=== PATIENT | female | born 1940 | race Caucasian/White ===

== ENCOUNTER 2017-08-08 16:40 | Inpatient (IN) | payer MEDICARE, OTHER ==
[~2017-08-08] VITALS: Ht 157.5 cm; Wt 74.0 kg
[~2017-08-08 16:40] MED LIST: ALENDRONATE SOD70 MG PO; LAMICTAL PO; LAMOTRIGINE200 MG PO; PANTOPRAZOLE SO40 MG PO; POTASSIUM CHLO10 ME1 PO; TRAZODONE HCL50 MG PO; VITAMIN D350000 UNIT PO; Z PHENOBARBITAL; Z TOPAMAX; Z.0.BENTYL10 MG; Z.0.KLOR-CON20 MEQ PO; Z.0.LASIX40 MG; Z.0.VITAMIN B12-FO1 PO; Z.1.NITROFURANTOIN10; [UNRECOGNIZED DRUG - OTHER]
--- OUTSIDE RECORDS SUMMARY | 2017-08-08 16:44 | XMS REPORT ---
Author Author [facility] Address Unknown Phone Unavailable Care Team Providers Care Patient Centered Care Specialist Name Role Phone KIET CA Unavailable Unavailable DAPHNIE SWEET Unavailable Unavailable SERENA BENITES Unavailable Unavailable CONNOR LAWSON Unavailable Unavailable Problems This patient has no known problems. Allergies, Adverse Reactions, Alerts This patient has no known allergies or adverse reactions. Medications This patient has no known medications. Results Test Description Test Time Test Comments Text Results Atomic Results Result Comments MRI BRAIN WO [place] [address] Patient Name: ROCHELLE CALDERA MR #: [id number] : 1940 Age/Sex: 76/F Req #: [id number] Adm Physician: KIET CA MD Ordered by: JESS REDMAN MD Report #: [id number] Location: [facility] Room/Bed: [facility] Procedure: [id number] MRI/MRI BRAIN WO Exam Date: 03/29/17 Exam Time: 1324 REPORT STATUS: Signed EXAMINATION: MRI of the brain without contrast. HISTORY: Confusion, left-sided weakness COMPARISON: Head CT on 03/27/2017 TECHNIQUE: Sagittal T2; axial DWI , T2, FLAIR, T1-IR, T2 gradient echo; coronal FLAIR. IMAGE QUALITY: Adequate. FINDINGS: Parenchyma: 1. Few scattered and mildly confluent periventricular white matter T2 hyperintense and FLAIR hyperintense foci, most likely nonspecific chronic microvascular ischemic changes. 2. Small chronic lacunar infarct in the left striatocapsular region (head of the caudate, putamen and anterior limb of the internal capsule). 3. No mass, hemorrhage, acute or chronic infarcts. Skull: Unremarkable. Vessels: Expected flow voids present in the major arteries and dural sinuses. Extra-axial spaces: No abnormal signal intensity or mass effect. Brain volume: Within normal limits for age. Ventricles: No hydrocephalus or displacement. Foramen magnum: Unremarkable. Sella: Unremarkable. Paranasal / mastoid sinuses: No significant inflammatory disease. IMPRESSION: 1. No acute infarcts. 2. Unchanged small chronic lacunar infarct in the left basal ganglia. 3. Mild chronic microvascular ischemic changes. Signed by: Dr. Loraine Brady M.D. on 03/29/2017 4:02 PM Dictated By: LORAINE BRADY MD 01 Transcribed By: ZAKI on 03/29/171601 COPY TO: JESS REDMAN MD CHEST SINGLE (PORTABLE) [place] [address] Patient Name: ROCHELLE CALDERA MR #: [id number] : 1940 Age/Sex: 76/F Req #: [id number] Adm Physician: Ordered by: SAL HOLDER MD Report #: [id number] Location: ER Room/Bed: Procedure: [id number] DX/CHEST SINGLE (PORTABLE) Exam Date: 03/27/17 Exam Time: 1845 REPORT STATUS: Signed Portable chest x -ray INDICATION: Stroke workup COMPARISON: Chest x-ray 03/04/2017 FINDINGS: Frontal view of the chest obtained at 1829 hours. HEART AND MEDIASTINUM: The heart is top normal in size to mildly enlarged with aortic ectasia LINES: None. LUNGS: Lung volumes are low. There is no evidence of mass or infiltrate. PLEURA: The costophrenic angles are sharp. No pneumothorax. BONES AND SOFT TISSUES: Degenerative changes of the right shoulder are stable. There are no focal osseous lesions. Clips in the right upper quadrant are suggestive of cholecystectomy.. The soft tissues are normal. IMPRESSION: 1. Mild cardiomegaly without vascular congestion. 2. Low lung volumes. No acute pulmonary process. Signed by: Dr. Ezio Bragg MD on 03/27/2017 6:54 PM Dictated By: EZIO BRAGG MD 53 COPY TO: SAL HOLDER MD CT BRAIN WO [place] [address] Patient Name: ROCHELLE CALDERA MR #: [id number] : 1940 Age/Sex: 76/F Req #: [id number] Adm Physician: Ordered by: SAL HOLDER MD Report #: [id number] Location: ER Room/Bed: Procedure: [id number] CT/CT BRAIN WO Exam Date: Exam Time: REPORT STATUS: Signed History:Left facial droop, altered mental status Comparison studies:Head CT on 03/22/2017 Technique: Axial images were obtained from the skull base to the vertex. Coronal and sagittal images reconstructed from the axial data. Intravenous contrast: None Findings: Scalp/skull: No abnormalities. Extra-axial spaces: No masses. No fluid collections. Brain sulci: Mildly prominent. Ventricles: Mild compensatory dilatation. No hydrocephalus. Parenchyma: Sagittal hypodensities in the supratentorial white matter are small vessel ischemic changes. An old lacunar insult involves the head of the caudate and the adjacent putamen. No masses, hemorrhage, acute or chronic cortical vascular insults. Sellar/suprasellar region: No abnormalities. Craniocervical junction: Patent foramen magnum. No Chiari one malformation. Incidental findings: Atherosclerotic calcifications in the carotid siphons and vertebral arteries. Impression: No acute abnormalities. No changes when compared to the head CT on 03/22/2017. Chronic findings: 1. Mild generalized volume loss. 2. Mild supratentorial white matter small vessel ischemic changes. 3. Focal left striatocapsular lacunar insult. Signed by: Dr. Porfirio Jones M.D. on 03/27/2017 6:04 PM Dictated By : PORFIRIO JONES MD, MD 03 Transcribed By: ZAKI on 03/27/171803 COPY TO: SAL HOLDER MD CT ABDOMEN/PELVIS W [place] [address] Patient Name: ROCHELLE CALDERA MR #: [id number] : 1940 Age/Sex: 76/F Req #: [id number] Adm Physician: Ordered by: NABILA ARAMBULA Report #: [id number] Location: ER Room/Bed: Procedure: [id number] CT/CT ABDOMEN/PELVIS W Exam Date: 03/22/17 Exam Time: 1440 REPORT STATUS: Signed EXAM: CT Abdomen and Pelvis WITH contrast INDICATION: COMPARISON: None. TECHNIQUE: Abdomen and pelvis were scanned utilizing a multidetector helical scanner from the lung base to the pubic symphysis after administration of IV contrast. Coronal and sagittal reformations were obtained. Routine protocol was performed. Scan was performed when during portal venous phase. IV CONTRAST: 100 mL of Isovue-370 ORAL CONTRAST: Water COMPLICATIONS: None RADIATION DOSE: Total DLP: 614.84 mGy*cm Estimated effective dose: (DLP x 0.015 x size factor) mSv CTDIvol has been reviewed. It is below the limits set by the Radiation Protocol Committee (RPC). FINDINGS: LINES and TUBES: None. LOWER THORAX: Subsegmental atelectasis. HEPATOBILIARY: Few calcified granulomas. No focal hepatic lesions. No biliary ductal dilation. GALLBLADDER: Surgically absent. SPLEEN: Splenomegaly, measuring 13 cm. PANCREAS: No focal masses or ductal dilatation. ADRENALS: No adrenal nodules KIDNEYS/URETERS: Kidneys enhance symmetrically. No hydronephrosis. No cystic or solid mass lesions. No stones. GI TRACT: Postsurgical changes of right hemicolectomy. The right abdomen anastomosis is intact. No evidence of bowel obstruction. There is pyloric/proximal first portion of duodenum wall thickening (series 2, image 25). PELVIC ORGANS/BLADDER: Hysterectomy. Bladder is unremarkable. 2.5 cm right ovarian cyst. There is also a 1.7 cm left ovarian cyst. LYMPH NODES: No lymphadenopathy. VESSELS: Unremarkable. PERITONEUM / RETROPERITONEUM: No free air or fluid. BONES: Left hip arthroplasty. SOFT TISSUES: Anterior abdominal surgical scar and skin carlitos. IMPRESSION: 1. Postsurgical changes of right hemicolectomy. 2. Pyloric/proximal first portion of duodenal wall thickening. Intramural hematoma cannot be excluded in the setting of trauma. Signed by: Dr. Omer Olivas MD on 03/22/2017 3: 26 PM Dictated By: OMER OLIVAS MD 1526 Transcribed By: ZAKI on 03/22/17 1526 COPY TO: NABILA ARAMBULA CT CERVICAL SPINE [place] [address] Patient Name: ROCHELLE CALDERA MR #: [id number] : 1940 Age/Sex: 76/F Req #: [id number] [facility] Physician: Ordered by: NABILA ARAMBULA Report #: [id number] Location: ER Room/Bed: Procedure: [id number] CT/CT CERVICAL SPINE WO Exam Date: 03/22/17 Exam Time: 1315 REPORT STATUS: Signed History: Fall hit the head, pain Comparison studies:None Technique: Axial images were obtained from the brain and cervical spine. Coronal and sagittal images reconstructed from the axial data. Intravenous contrast: None Findings: Head CT: Scalp/skull: Small left frontal scalp hematoma. No fractures, blastic or lytic lesions. Brain sulci: Appropriate for age. Ventricles: Normal in size and configuration. No hydrocephalus. Extra-axial spaces: No masses. No fluid collections. Parenchyma: Small periventricular and deep white matter hypodensities, nonspecific. Chronic left thalamocapsular lacunar infarct No masses, hemorrhage, acute or chronic cortical vascular insults. Sellar/suprasellar region: No abnormalities. Craniocervical junction: Patent foramen magnum. No Chiari one malformation. Cervical spine CT: Fractures: None. Soft tissues: No gross abnormalities. Atlantoaxial articulation: No acute abnormality. Mild changes. Alignment: Normal lordosis. No scoliosis. Cervicomedullary junction : No abnormalities. Patent foramen magnum. Vertebrae: No infection or neoplasm. Degenerative changes: Facet hypertrophy at the upper and mid cervical spine with grossly patent canal and foramina. Fused C2-3 left facet joint. Incidental findings: None. Impression: Head CT: 1. No acute intracranial abnormality. 2. Mild chronic microvascular ischemic changes of the white matter. Remote lacunar infarct in the left striatocapsular region. Cervical spine CT: 1. No acute abnormalities. Degenerative changes as described above. 2. Cannot exclude ligament, spinal cord and or vascular abnormalities on the basis of this examination. Signed by: DR Tiot Rucker M.D. on 03/22/2017 2:02 PM Dictated By : TITO ZEPEDA MD 01 COPY TO: NABILA ARAMBULA CT BRAIN WO [place] [address] Patient Name: ROCHELLE CALDERA MR #: [id number] : 1940 Age/Sex: 76/F Req #: [id number] Adm Physician: Ordered by: NABILA ARAMBULA Report #: [id number] Location: ER Room/Bed: Procedure: [id number] CT/CT BRAIN WO Exam Date: 03/22/17 Exam Time: 1315 REPORT STATUS: Signed History: Fall hit the head, pain Comparison studies:None Technique: Axial images were obtained from the brain and cervical spine. Coronal and sagittal images reconstructed from the axial data. Intravenous contrast: None Findings: Head CT: Scalp /skull: Small left frontal scalp hematoma. No fractures, blastic or lytic lesions. Brain sulci: Appropriate for age. Ventricles: Normal in size and configuration. No hydrocephalus. Extra-axial spaces: No masses. No fluid collections. Parenchyma: Small periventricular and deep white matter hypodensities, nonspecific. Chronic left thalamocapsular lacunar infarct No masses, hemorrhage, acute or chronic cortical vascular insults. Sellar/suprasellar region: No abnormalities. Craniocervical junction: Patent foramen magnum. No Chiari one malformation. Cervical spine CT : Fractures: None. Soft tissues: No gross abnormalities. Atlantoaxial articulation: No acute abnormality. Mild changes. Alignment: Normal lordosis. No scoliosis. Cervicomedullary junction: No abnormalities. Patent foramen magnum. Vertebrae: No infection or neoplasm. Degenerative changes: Facet hypertrophy at the upper and mid cervical spine with grossly patent canal and foramina. Fused C2-3 left facet joint. Incidental findings: None. Impression: Head CT: 1. No acute intracranial abnormality. 2. Mild chronic microvascular ischemic changes of the white matter. Remote lacunar infarct in the left striatocapsular region. Cervical spine CT: 1. No acute abnormalities. Degenerative changes as described above. 2. Cannot exclude ligament, spinal cord and or vascular abnormalities on the basis of this examination. Signed by: DR Tito Rucker M.D. on 03/22/2017 2:02 PM Dictated By: TITO ZEPEDA MD 01 Transcribed By: ZAKI on 03/22/171401 COPY TO: NABILA ARAMBULA CHEST 2 VIEWS [place] [address] Patient Name: ROCHELLE CALEDRA MR #: [id number] : 1940 Age/Sex: 76/F Req #: [id number] [facility] Physician: Ordered by: SERENA BENITES MD Report #: [id number] Location: OR Room/Bed: Procedure: [id number] DX/CHEST 2 VIEWS Exam Date: 03/04/17 Exam Time: 1445 REPORT STATUS: Signed PROCEDURE: X-RAY CHEST, TWO VIEWS COMPARISON: None. INDICATIONS: PREOPERATIVE CHEST XRAY FOR COLON SURGERY FINDINGS: LUNGS: No consolidations or edema. Limited evaluation of the apical region due to overlying chin. PLEURA: No effusions or pneumothorax. HEART T MEDIASTINUM: The heart is within normal size- limits. BONES T SOFT TISSUES: No acute findings. Degenerative changes of the right shoulder. CONCLUSION: No acute thoracic abnormality. Reggie Grimes D.O. Dictated by: Reggie Grimes D.O. on 03/04/2017 at 15:45 Electronically approved by: Reggie Grimes D.O. on 03/04/2017 at 15:45 Dictated By: REGGIE GRIMES DO 44 Transcribed By: RAFAEL on 03/04/171544 COPY TO: SERENA BENITES MD UPPER GI W/AIR CONTR [place] [address] Patient Name: ROCHELLE CALDERA MR #: [id number] : 1940 Age/Sex: 76/F Req #: [id number] Adm Physician: Ordered by: CONNOR LAWSON MD Report #: [id number] Location: OR Room/Bed: Procedure: [id number] DX/UPPER GI W/AIR CONTR Exam Date: 02/05/17 Exam Time: 1300 REPORT STATUS: Signed PROCEDURE: X-RAY UPPER GI SERIES WITH AIR CONTRAST TECHNIQUE: Multiple fluoroscopic spot images were acquired of the esophagus, stomach, and proximal duodenum after the administration of thin barium. The examination was limited due to the inability of the patient to stand and limited mobility. COMPARISON: None. INDICATIONS: Pyloric mass. FINDINGS: ESOPHAGUS: Motility: Within normal limits. Mucosa: Unremarkable. Distensibility : Normal. GASTROESOPHAGEAL JUNCTION: Small hiatal hernia. GASTROESOPHAGEAL REFLUX: Reflux to the level of the cervical esophagus. STOMACH: Normally distensible and demonstrates normal contours and mucosal pattern. DUODENUM: Bulb and sweep are normal. Duodenal-jejunal junction is in the normal expected position. IMPRESSION: 1. No acute radiographic abnormality. 2. Gastroesophageal reflux to the cervical esophagus. Small hiatal hernia. Dictated by: Mirna Sanchez M.D. on 02/05/2017 at 14:29 Electronically approved by: Mirna Sanchez M.D. on 02/05/2017 at 14:29 Dictated By: MIRNA SANCHEZ MD 142 Transcribed By: RAFAEL on 02/05/171428 COPY TO: CONNOR LAWSON MD
[2017-08-08] MEDS ORDERED: SODIUM CHLORIDE 0.9% 1000ML 1,000 ML IV STA (16:48)
[2017-08-08 17:24] LABS: BASOPHILS % 0.3 % (0.0-1.0); LYMPHOCYTES % 28.9 % (18.0-39.1); MEAN CORPUSCULAR HEMOGLOBIN 19.4 pg (28-32); MEAN CORPUSCULAR HGB CONC 27.3 g/dL (31-35); MEAN CORPUSCULAR VOLUME 71.2 fL (81-99); MONOCYTES # (AUTO) 1.1 (0.2-0.8); MONOCYTES % 33.3 % (4.4-11.3); NEUTROPHILS # (AUTO) 1.3 (2.1-6.9); NEUTROPHILS % 37.2 % (38.7-80.0); PLATELET COUNT 154 x10e3/uL (140-360); RED BLOOD COUNT 2.88 x10e6/uL (3.6-5.1); RED CELL DISTRIBUTION WIDTH 18.8 % (11.7-14.4)
[2017-08-08 17:28] LABS: HEMATOCRIT 20.5 % (34.2-44.1); HEMOGLOBIN 5.6 g/dL (12.0-16.0)
[2017-08-08 17:36] LABS: INR 1.18; PARTIAL THROMBOPLASTIN TIME 22.4 seconds (23.8-35.5); PROTHROMBIN TIME 14.1 seconds (11.9-14.5)
[2017-08-08] MEDS ORDERED: ACETAMINOPHEN 325 MG TAB PO STA (17:39)
[2017-08-08] MEDS ORDERED: FAMOTIDINE 20 MG/2 ML VIAL IV ONE ×2 (17:45→21:15)
[2017-08-08] MEDS ORDERED: SODIUM CHLORIDE 0.9% 250ML 250 ML IV ONE (17:45)
[2017-08-08] MEDS ORDERED: FUROSEMIDE INJ 10 MG/ML 2 ML VIAL IV PRN (17:45)
[2017-08-08 17:46] LABS: ALANINE AMINOTRANSFERASE 7 IU/L (0-55); ALBUMIN 3.8 g/dL (3.5-5.0); ALBUMIN/GLOBULIN RATIO 1.1 (0.8-2.0); ALKALINE PHOSPHATASE 68 IU/L (40-150); BLOOD UREA NITROGEN 21 mg/dL (7-26); BUN/CREATININE RATIO 29 (6-25); CALCIUM 9.7 mg/dL (8.4-10.2); CARBON DIOXIDE 24 mmol/L (22-29); CHLORIDE 107 mmol/L (98-107); CREATINE KINASE 27 IU/L (29-168); CREATININE, SERUM 0.72 mg/dL (0.57-1.11); EST GLOMERULAR FILTRATION RATE > 60 ML/MIN (60-); GLUCOSE 111 mg/dL (74-118); LIPASE 76 U/L (8-78); SODIUM 140 mmol/L (136-145)
--- NOTE | 2017-08-08 18:21 | Diagnostic Imaging Report ---
PROCEDURE: CHEST SINGLE (PORTABLE) COMPARISON: Chest x-ray 03/27/17. INDICATIONS: ANEMIA/WEAKNESS FINDINGS: LUNGS: Clear. Pulmonary interstitium and pulmonary vasculature are normal. PLEURA: No effusions or pneumothorax. HEART \T\ MEDIASTINUM: Abnormal in size. BONES \T\ SOFT TISSUES: Moderate degenerative changes of the right shoulder are stable. No focal osseous lesions. Soft tissues are unremarkable. CONCLUSION: No acute cardiopulmonary process. Other findings as described above. Dictated by: Omar Horton M.D. on 08/08/2017 at 18:22 Electronically approved by: Omar Horton M.D. on 08/08/2017 at 18:22
[2017-08-08 19:30] VITALS: BP 132/58
[2017-08-08 20:00] VITALS: BP 132/58
[2017-08-08] MEDS ORDERED: SODIUM CHLORIDE 0.9% 250ML 250 ML ONE (21:03)
[2017-08-08] MEDS ORDERED: ACETAMINOPHEN 325 MG TAB PO ONE (21:15)
[2017-08-08] MEDS: SODIUM CHLORIDE 0.9% 1000ML 1,000 ML IV SCH (21:45)
[2017-08-09] VITALS: BP 130/60
[2017-08-09] MEDS ORDERED: TRAZODONE HCL 50 MG TAB PO PRN
[2017-08-09 03:02] LABS: CREATINE KINASE 25 IU/L (29-168)
[2017-08-09 04:00] VITALS: BP 146/66
[2017-08-09] MEDS: SODIUM CHLORIDE 0.9% 1000ML 1,000 ML IV SCH ×2 (05:15→11:48)
[2017-08-09 07:43] LABS: ALANINE AMINOTRANSFERASE 7 IU/L (0-55); ALBUMIN 3.6 g/dL (3.5-5.0); ALBUMIN/GLOBULIN RATIO 1.3 (0.8-2.0); ALKALINE PHOSPHATASE 61 IU/L (40-150); ANION GAP 10.9 mmol/L (8-16); BLOOD UREA NITROGEN 19 mg/dL (7-26); BUN/CREATININE RATIO 26 (6-25); CALCIUM 9.2 mg/dL (8.4-10.2); CARBON DIOXIDE 27 mmol/L (22-29); CHLORIDE 104 mmol/L (98-107); CREATININE, SERUM 0.74 mg/dL (0.57-1.11); EST GLOMERULAR FILTRATION RATE > 60 ML/MIN (60-); GLUCOSE 90 mg/dL (74-118); POTASSIUM 3.9 mmol/L (3.5-5.1); SODIUM 138 mmol/L (136-145)
[2017-08-09 07:46] LABS: CREATINE KINASE 28 IU/L (29-168)
[2017-08-09 08:03] VITALS: BP 137/61
[2017-08-09 08:10] LABS: BASOPHILS % 0.2 % (0.0-1.0); HEMATOCRIT 24.6 % (34.2-44.1); HEMOGLOBIN 7.4 g/dL (12.0-16.0); LYMPHOCYTES # (AUTO) 1.1 (1.0-3.2); LYMPHOCYTES % 24.9 % (18.0-39.1); MEAN CORPUSCULAR HGB CONC 30.1 g/dL (31-35); MONOCYTES % 46.7 % (4.4-11.3); NEUTROPHILS # (AUTO) 1.2 (2.1-6.9); NEUTROPHILS % 27.7 % (38.7-80.0); PLATELET COUNT 117 x10e3/uL (140-360); RED BLOOD COUNT 3.37 x10e6/uL (3.6-5.1); RED CELL DISTRIBUTION WIDTH 19.1 % (11.7-14.4)
[2017-08-09] MEDS: PANTOPRAZOLE SOD 40 MG TABEC PO SCH (08:45)
[2017-08-09] MEDS: POTASSIUM CHLORIDE 10 MEQ TABCR PO SCH (08:45)
[2017-08-09] MEDS: LAMOTRIGINE 100 MG TAB PO SCH ×2 (08:45→16:26)
[2017-08-09] MEDS ORDERED: ERGOCALCIFEROL 50,000 UNIT CAP PO SCH (09:00)
[2017-08-09] MEDS ORDERED: SODIUM CHLORIDE 0.9% 250ML 250 ML ONE (09:06)
[2017-08-09 09:28] LABS: FERRITIN 18.03 ng/mL (4.63-204.00)
[2017-08-09] MEDS: ACETAMINOPHEN 325 MG TAB PO PRN (09:30)
[2017-08-09 10:33] LABS: ANISOCYTOSIS MODERATE; LYMPHOCYTES % (MANUAL) 27 % (19-48); MONOCYTES % (MANUAL) 44 % (3.4-9.0); NEUTROPHILS % (MANUAL) 29 % (40-74)
[2017-08-09 10:34] LABS: HYPOCHROMASIA MODERATE; PLATELET ESTIMATE SLIGHTLY DECREASED; PLATELET MORPHOLOGY COMMENT FEW GIANT; RBC MORPHOLOGY COMMENT NORMAL
[2017-08-09 12:00] VITALS: BP 124/59
[2017-08-09 14:42] LABS: HEMATOCRIT 26.7 % (34.2-44.1); HEMOGLOBIN 8.5 g/dL (12.0-16.0)
[2017-08-09 16:00] VITALS: BP 141/81
[2017-08-09 16:31] LABS: ALBUMIN 3.5 g/dL (3.5-5.0); BILIRUBIN,DIRECT 0.7 mg/dL (0.0-0.5)
--- NOTE | 2017-08-09 17:01 | Consultation ---
DATE OF CONSULTATION: GASTROENTEROLOGY CONSULTATION HISTORY OF PRESENT ILLNESS: Ms. Beal is a 77-year-old lady. I have known her when she presented initially to my office with nausea and vomiting. On her evaluation she had upper endoscopy in January, showed large polypoid lesion in the pylorus almost obstructing the pyloric channel. On her colon evaluation she was found to have a mass over 5 cm located in the ascending colon in addition to another polyp in the descending colon which was removed by hot biopsy. Patient was referred to Dr. Mayank Kimball, by whom she underwent a partial gastrectomy and partial right hemicolectomy. 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 The lesion of her stomach was found to be benign. She was referred to an oncologist, Dr. Lai, who has been following her. Over the past 3 months they noticed that her hemoglobin and hematocrit kept on decreasing, and yesterday she was admitted to the hospital with a hemoglobin of 5 and hematocrit of 20 and I was asked to see her. Talking to the patient, she denied any nausea and vomiting, any heartburn, acid reflux, any abdominal pain. She denied any trouble with her bowel, denied any black-colored stool or blood in the stool. She has received 3 units of blood transfusion since she was admitted yesterday through the emergency room. REVIEW OF SYSTEMS: Unremarkable except for feeling weak and tired and loss of energy and some shortness of breath. CURRENT MEDICATION IN THE HOSPITAL: She is taking Tylenol, Lamictal, Drisdol, potassium, Protonix, trazodone. ALLERGIES: SHE IS ALLERGIC TO SULFA AND MORPHINE. PAST MEDICAL HISTORY: Epilepsy. PAST SURGICAL HISTORY: Hysterectomy, cholecystectomy, left hip replacement, a tumor removed from the left breast. FAMILY HISTORY: Noncontributory. SOCIALLY: She is a . She as 2 children. She does not drink and she does not smoke. PHYSICAL EXAMINATION: GENERAL: She is awake, alert, oriented, hemodynamically stable. NECK: Supple. LUNGS: Clear. HEART: Regular-regular, occasional irregular beat. ABDOMEN: Obese, soft, nontender. No acute signs. CENTRAL NERVOUS SYSTEM: Motor function grossly intact. EXTREMITIES: No edema. LAB TESTS: Hemoglobin after 3 blood units transfusion 8.5 and hematocrit 26.7. PT/PTT normal. Calcium normal. Platelet 117. Basic metabolite normal. Liver function, AST, ALT and alk phos are normal, total bilirubin mildly elevated at 3.5. Her folate is 14, B12 normal, iron saturation 89%, ferritin is 18. IMPRESSION: Severe anemia, most likely iron deficient. Patient was started on iron supplement as an outpatient, and I will explain the elevation of her iron saturation. The cause of her anemia, the iron deficiency, probably related to her partial gastrectomy as no obvious cause of any GI bleed at this point. PLAN: Will continue the conservative care of the patient. No need for endoscopy as no active bleeding seen. Will keep her on the Protonix, will keep her on the iron supplement, and will follow accordingly. As far as the bilirubin of 3.5, this could be the bit of elevation due to possibly hemolysis though her MCV is low, which speaks against hemolysis. I will go ahead and order a fractionated bilirubin direct and indirect. Job#: [id number] EV
[2017-08-09 20:00] VITALS: BP 122/57
[2017-08-09] MEDS: BALSAM PERU/CASTOR OIL 60 GM OINT...G. TP SCH (21:00)
[2017-08-10] VITALS: BP 137/79
[2017-08-10 04:00] VITALS: BP 152/69
[2017-08-10 08:17] VITALS: BP 140/63
[2017-08-10 09:24] LABS: BASOPHILS % 0.2 % (0.0-1.0); HEMATOCRIT 27.7 % (34.2-44.1); HEMOGLOBIN 8.4 g/dL (12.0-16.0); LYMPHOCYTES % 22.2 % (18.0-39.1); MEAN CORPUSCULAR HEMOGLOBIN 22.5 pg (28-32); MEAN CORPUSCULAR HGB CONC 30.3 g/dL (31-35); MEAN CORPUSCULAR VOLUME 74.3 fL (81-99); MONOCYTES # (AUTO) 2.1 (0.2-0.8); MONOCYTES % 47.6 % (4.4-11.3); NEUTROPHILS # (AUTO) 1.3 (2.1-6.9); NEUTROPHILS % 29.6 % (38.7-80.0); PLATELET COUNT 113 x10e3/uL (140-360); RED BLOOD COUNT 3.73 x10e6/uL (3.6-5.1); RED CELL DISTRIBUTION WIDTH 19.4 % (11.7-14.4)
[2017-08-10] MEDS: POTASSIUM CHLORIDE 10 MEQ TABCR PO SCH (09:28)
[2017-08-10] MEDS: PANTOPRAZOLE SOD 40 MG TABEC PO SCH (09:28)
[2017-08-10] MEDS: BALSAM PERU/CASTOR OIL 60 GM OINT...G. TP SCH ×2 (09:28→20:51)
[2017-08-10] MEDS: LAMOTRIGINE 100 MG TAB PO SCH ×2 (09:28→15:26)
[2017-08-10 09:40] LABS: ANION GAP 12.3 mmol/L (8-16); BLOOD UREA NITROGEN 18 mg/dL (7-26); BUN/CREATININE RATIO 25 (6-25); CALCIUM 8.7 mg/dL (8.4-10.2); CARBON DIOXIDE 25 mmol/L (22-29); CHLORIDE 103 mmol/L (98-107); CREATININE, SERUM 0.73 mg/dL (0.57-1.11); EST GLOMERULAR FILTRATION RATE > 60 ML/MIN (60-); GLUCOSE 132 mg/dL (74-118); MAGNESIUM 1.7 MG/DL (1.3-2.1); POTASSIUM 3.3 mmol/L (3.5-5.1); SODIUM 137 mmol/L (136-145)
[2017-08-10] MEDS ORDERED: POTASSIUM CHLORIDE 10 MEQ TABCR PO ONE (10:30)
[2017-08-10 10:37] LABS: LYMPHOCYTES % (MANUAL) 25 % (19-48); MONOCYTES % (MANUAL) 38 % (3.4-9.0); NEUTROPHILS % (MANUAL) 35 % (40-74)
[2017-08-10 10:38] LABS: PLATELET ESTIMATE SLIGHTLY DECREASED; PLATELET MORPHOLOGY COMMENT NORMAL; RBC MORPHOLOGY COMMENT NORMAL
--- NOTE | 2017-08-10 10:46 | Progress Note ---
DATE: August 10, 2017 The patient is seen and examined today. The patient appeared comfortable. No worsening. Clinically, he is doing better. No chest pain, headache, or dizziness. PHYSICAL EXAMINATION: GENERAL: Alert, awake, communicative. HEENT: Normocephalic, atraumatic. Sclerae pale. Conjunctivae clear. Neck: Supple. Chest: Clear to auscultation. Cardiovascular: Regular rate and rhythm. Extremities: No edema. LABS AND IMAGING: Reviewed. ASSESSMENT AND PLAN: 1. Patient with history of medical condition. I will be following for anemia. So far, the anemia workup is consistent with iron deficiency anemia. The patient had transfusion and currently hemoglobin is stable. Will monitor hemoglobin closely. 2. Colon cancer. CA level is requested. The patient will need PET CT as an outpatient. Further recommendations and treatment as per clinical staging. 3. Will continue to monitor. Will follow. Job#: [id number]
--- NOTE | 2017-08-10 11:11 | Consultation ---
DATE OF CONSULTATION: August 09, 2017 REASON FOR CONSULTATION: Anemia, history of colon cancer. HISTORY OF PRESENT ILLNESS: She is a very pleasant, 77-year-old female with a past medical history including CVA, colon cancer, cervical strain, history of epilepsy, currently in the hospital with worsening symptomatic anemia. She was initially seen in clinic for further management of colon cancer. She was recently diagnosed with colon cancer in ascending colon. She had right hemicolectomy recently. She feels fatigued, tired and lethargic. She had CBC which showed hemoglobin 5. She was referred to the emergency room for further management. She received 2 units of packed red blood cells transfusion. Clinical condition has improved. PAST MEDICAL HISTORY: Includes head trauma, UTI, CVA, anemia, colon cancer. FAMILY HISTORY: Positive for lung cancer, abdominal syndrome, coronary artery disease. ALLERGIES: SULFA, MORPHINE. MEDICATIONS: List reviewed. REVIEW OF SYSTEMS: A 12-point review of systems per the HPI. SOCIAL HISTORY: No smoking, alcohol or drugs. PHYSICAL EXAMINATION GENERAL: Alert, awake, medicated. HEENT: Normocephalic and atraumatic. Sclerae pink and conjunctivae clear. NECK: Supple. CARDIOVASCULAR: Regular rate and rhythm. EXTREMITIES: No clubbing, cyanosis or edema. JAI ALAI PLAYER: Grossly intact. LABS AND IMAGING: Reviewed. ASSESSMENT AND PLAN: 1. The patient with history of multiple medical conditions, recently diagnosed with colon cancer, status post right hemicolectomy. No restaging workup done. Recommendation to follow up as an outpatient for further management. 2. Anemia. So far, anemia workup is pending. She received 2 units of packed red blood cells and recommend to give 1 more packed red blood cells. Will follow hemoglobin closely. 3. Will continue remaining care. Will follow the patient. Job#: [id number]
[2017-08-10] MEDS: IRON SUCROSE 100 MG in SODIUM CHLORIDE 0.9% 100 ML 100 ML IV SCH (11:29)
[2017-08-10 12:08] VITALS: BP 138/62
--- NOTE | 2017-08-10 14:59 | Progress Note ---
DATE: GASTROENTEROLOGY PROGRESS NOTE SUBJECTIVE: Ms. Beal is doing better today. She is awake, alert, oriented. She was on a wheelchair outside her room. OBJECTIVE: Her blood count has continued to improve and is steady. Her hemoglobin today is 8.4, hematocrit 28, platelets 113. Hemodynamically she is stable, afebrile 98, pulse 75, blood pressure 138/62. She is on cardiac diet, tolerating it fine. Her electrolytes: BUN and creatinine normal, sodium and potassium 137 and 3.3, and the potassium was replaced. Her repeat bilirubin is 2.2 with the indirect 1.5. Normal enzymes and normal alk phos. She had CT of the liver with contrast in March 2017, which was normal. ASSESSMENT AND PLAN: Most likely again the recent episode of anemia because of the malabsorption post gastrectomy. She had no signs of active GI bleed, no melena, no hematemesis, no hematochezia, and actually her BUN is within normal, 28. She is receiving iron. Will continue to monitor. Job#: [id number] MARCELLO
[2017-08-10 16:05] VITALS: BP 139/63
[2017-08-10 20:00] VITALS: BP 140/66
[2017-08-11] VITALS: BP 154/65
[2017-08-11 04:00] VITALS: BP 163/69
[2017-08-11 07:47] LABS: BASOPHILS % 0.6 % (0.0-1.0); HEMATOCRIT 31.1 % (34.2-44.1); HEMOGLOBIN 9.2 g/dL (12.0-16.0); LYMPHOCYTES # (AUTO) 1.1 (1.0-3.2); LYMPHOCYTES % 30.4 % (18.0-39.1); MEAN CORPUSCULAR HEMOGLOBIN 22.6 pg (28-32); MEAN CORPUSCULAR HGB CONC 29.6 g/dL (31-35); MEAN CORPUSCULAR VOLUME 76.4 fL (81-99); MONOCYTES # (AUTO) 1.2 (0.2-0.8); MONOCYTES % 33.9 % (4.4-11.3); NEUTROPHILS # (AUTO) 1.2 (2.1-6.9); NEUTROPHILS % 33.9 % (38.7-80.0); PLATELET COUNT 142 x10e3/uL (140-360); RED BLOOD COUNT 4.07 x10e6/uL (3.6-5.1); RED CELL DISTRIBUTION WIDTH 20.5 % (11.7-14.4)
[2017-08-11 08:00] VITALS: BP 148/67
[2017-08-11 08:30] LABS: ANION GAP 11.9 mmol/L (8-16); BLOOD UREA NITROGEN 13 mg/dL (7-26); BUN/CREATININE RATIO 17 (6-25); CALCIUM 9.8 mg/dL (8.4-10.2); CARBON DIOXIDE 26 mmol/L (22-29); CHLORIDE 107 mmol/L (98-107); CREATININE, SERUM 0.75 mg/dL (0.57-1.11); EST GLOMERULAR FILTRATION RATE > 60 ML/MIN (60-); GLUCOSE 98 mg/dL (74-118); MAGNESIUM 2.1 MG/DL (1.3-2.1); POTASSIUM 3.9 mmol/L (3.5-5.1); SODIUM 141 mmol/L (136-145)
[2017-08-11] MEDS: POTASSIUM CHLORIDE 10 MEQ TABCR PO SCH (08:40)
[2017-08-11] MEDS: PANTOPRAZOLE SOD 40 MG TABEC PO SCH (08:40)
[2017-08-11] MEDS: BALSAM PERU/CASTOR OIL 60 GM OINT...G. TP SCH ×2 (08:40→20:23)
[2017-08-11] MEDS: LAMOTRIGINE 100 MG TAB PO SCH ×2 (08:40→16:19)
[2017-08-11] MEDS: IRON SUCROSE 100 MG in SODIUM CHLORIDE 0.9% 100 ML 100 ML IV SCH (10:17)
[2017-08-11 12:00] VITALS: BP 142/63
[2017-08-11 13:32] LABS: CLARITY,URINE SL CLOUDY (CLEAR); COLOR,URINE YELLOW (YELLOW)
[2017-08-11 13:33] LABS: LEUKOCYTE ESTERASE ,URINE TRACE (NEGATIVE); NITRITE,URINE POSITIVE (NEGATIVE); PROTEIN,URINE DIPSTICK NEGATIVE (NEGATIVE)
[2017-08-11 13:34] LABS: BILIRUBIN,URINE NEGATIVE (NEGATIVE); KETONES,URINE NEGATIVE (NEGATIVE); URINE UROBILINOGEN 1 mg/dL (0.2 - 1)
[2017-08-11 13:43] LABS: BACTERIA,URINE MANY /HPF; EPITHELIAL CELLS,URINE MANY /LPF; RBC,URINE 0-5 /HPF (0-5); WBC,URINE (MAN) 0-5 /HPF (0-5)
[2017-08-11 16:00] VITALS: BP 153/62
[2017-08-11] MEDS: ACETAMINOPHEN 325 MG TAB PO PRN (16:37)
[2017-08-11 20:31] VITALS: BP 134/63
[2017-08-12 00:34] VITALS: BP 150/67
[2017-08-12 05:43] VITALS: BP 137/62
[2017-08-12 07:28] VITALS: BP 153/68
[2017-08-12 07:30] VITALS: BP 153/68
[2017-08-12] MEDS: POTASSIUM CHLORIDE 10 MEQ TABCR PO SCH (09:25)
[2017-08-12] MEDS: PANTOPRAZOLE SOD 40 MG TABEC PO SCH (09:25)
[2017-08-12] MEDS: LAMOTRIGINE 100 MG TAB PO SCH (09:25)
[2017-08-12] MEDS: BALSAM PERU/CASTOR OIL 60 GM OINT...G. TP SCH (09:25)
[2017-08-12 09:40] LABS: BASOPHILS % 0.2 % (0.0-1.0); LYMPHOCYTES # (AUTO) 1.3 (1.0-3.2); LYMPHOCYTES % 30.8 % (18.0-39.1); MEAN CORPUSCULAR HEMOGLOBIN 22.8 pg (28-32); MEAN CORPUSCULAR VOLUME 78.7 fL (81-99); MONOCYTES # (AUTO) 1.5 (0.2-0.8); MONOCYTES % 35.1 % (4.4-11.3); NEUTROPHILS # (AUTO) 1.4 (2.1-6.9); NEUTROPHILS % 32.5 % (38.7-80.0); PLATELET COUNT 122 x10e3/uL (140-360); RED BLOOD COUNT 3.94 x10e6/uL (3.6-5.1); RED CELL DISTRIBUTION WIDTH 21.6 % (11.7-14.4)
--- NOTE | 2017-08-12 09:40 | Progress Note ---
DATE: August 12, 2017 The patient was seen and examined today. The patient appeared comfortable. Clinical condition is stable. No worsening events noted. No chest pain, headache or dizziness. Current hemoglobin is improving. PHYSICAL EXAMINATION GENERAL: Alert, awake and communicative. HEENT: Normocephalic and atraumatic. Sclerae pink. Conjunctivae clear. NECK: Supple. CHEST: Clear to auscultation. CARDIOVASCULAR: Regular rate and rhythm. EXTREMITIES: No clubbing, cyanosis or edema. MECHANICAL METER TESTER: Grossly intact. LABS AND IMAGING: Reviewed. ASSESSMENT AND PLAN: The patient with history of multiple medical conditions, including recently diagnosed adenocarcinoma of colon, history of status post hemicolectomy. She also has iron deficiency anemia and currently on iron infusion. Hemoglobin 9.2 yesterday morning. CBC is pending. Will check CBC today. Clinical condition has improved. At this point, will continue iron treatment. Can be done as an outpatient. Restaging for colon cancer will be as an outpatient. Will follow the patient closely. Job#: [id number] DAVID
[2017-08-12 11:20] VITALS: BP 150/66
[2017-08-12 11:24] LABS: HEMATOCRIT 28.8 % (34.2-44.1); HEMOGLOBIN 8.4 g/dL (12.0-16.0)
[2017-08-12] MEDS: IRON SUCROSE 100 MG in SODIUM CHLORIDE 0.9% 100 ML 100 ML IV SCH (11:45)
== END 2017-08-12 15:50 | disposition home or self-care (01) | DRG 812 ==
LOC: ER 16:40 → ERHOLD 18:20 → MED/SURG3 18:27
PROC: 30233N1 Transfusion of Nonautologous Red Blood Cells into Peripheral Vein, Percutaneous Approach (ICD-10-PCS; principal; 2017-08-08)
DX: D50.8 Other iron deficiency anemias (principal); C18.9 Malignant neoplasm of colon, unspecified; E44.1 Mild protein-calorie malnutrition; Z85.038 Personal history of other malignant neoplasm of large intestine; R55 Syncope and collapse; D63.0 Anemia in neoplastic disease; K21.9 Gastro-esophageal reflux disease without esophagitis; F32.9 Major depressive disorder, single episode, unspecified; L89.152 Pressure ulcer of sacral region, stage 2; Z88.5 Allergy status to narcotic agent; Z88.2 Allergy status to sulfonamides; Z68.29 Body mass index [BMI] 29.0-29.9, adult; D62 Acute posthemorrhagic anemia
CPT/HCPCS: 36415; 71045; 80048; 80053; 80076; 81001; 82248; 82550; 82553; 82607; 82728; 82746; 83540; 83690; 83735; 84155; 84466; 84484; 85014; 85018; 85025; 85610; 85730; 86850; 86900; 86920; 87086; 87186; 93005; 96361; 97139; J1756; J1940; J7030; J7050; P9016

== ENCOUNTER 2018-05-14 16:53 | Emergency (ER) | payer MEDICARE, OTHER ==
[~2018-05-14] VITALS: Ht 157.5 cm; Wt 73.9 kg
--- OUTSIDE RECORDS SUMMARY | 2018-05-14 16:58 | XMS REPORT | Continuity of Care Document ---
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 [facility] [place] Anxiety disorder<sup>1</sup> Active 10/02/2013 Problem 05/08/2018 Data migrated from [employer] [facility] on 09/14/14. [facility] [place] Cobalamin deficiency<sup>2</sup> Active 10/02/2013 Problem 05/08/2018 Data migrated from [employer] on 09/14/14. [facility] [place] Depressive disorder<sup>4</sup> Active 10/02/2013 Problem 05/08/2018 Data migrated from [employer] on 09/14/14. [facility] [place] Mixed incontinence<sup>7</sup> Active 10/02/2013 Problem 05/08/2018 Data migrated from [employer] [facility] on 09/14/14. [facility] [place] Walking disability<sup>10</sup> Active 10/02/2013 Problem 05/08/2018 Data migrated from [employer] [facility] on 09/14/14. [facility] [place] Epilepsy<sup>5</sup> Active 08/17/2013 Problem 05/08/2018 Data migrated from [employer] [facility] on 09/14/14. [facility] [place] Recurrent urinary tract infection<sup>8</sup> Active 05/19/2013 Problem 05/08/2018 Data migrated from [employer] on 09/14/14. [facility] [place] HYPHEMA 364.41 Active 05/07/2013 [facility] CHEST PAIN Active 04/29/[address] [facility] [address] SENT Active 04/29/2013 [facility] Anxiety and depression Resolved Problem 05/08/2018 [facility] [place] Hx of migraines Active Problem 05/08/2018 [facility] [place] History of arthroplasty of left hip Resolved Problem 05/08/2018 [facility] [place] Iron deficiency anemia<sup>6</sup> Active Problem 05/08/2018 Data migrated from [employer] on 09/14/14. [facility] [place] Obesity Active Problem 05/08/2018 [facility], [facility] [place] Multiple falls Active Problem 05/08/2018 [facility] [place] Seizure Active Problem 05/08/2018 [facility] [place], [facility] [place] UI - Urinary incontinence Resolved Problem 05/08/2018 [facility] [place] Urinary bladder disorder<sup>9</sup> Resolved Problem 05/08/2018 chronic UTI's [facility] [place] Urinary bladder disorder<sup>1</sup> Resolved Problem 01/26/2016 chronic UTI's [facility] [place],[facility] HYPHEMA Active [facility] CONVULSIONS NEC Active [facility] EPILEPSY NOS-INTRACTABLE Active [facility] PAIN IN UNSPECIFIED JOINT Active [facility] Medications Medication Details Route Status Patient Instructions Ordering Provider Order Date Source Trazodone Hydrochloride 50 MG Oral Tablet 25 mg=0.5 tab, PO, Bedtime, # 45 tab, 1 Refill(s), Pharmacy: [facility] Active 08/26/2017 [facility] Ergocalciferol [id number] UNT Oral Capsule 50,000 IntlUnit=1 cap, PO, qWeek, # 12 cap, 1 Refill(s), Pharmacy: [facility] Active 08/26/2017 [facility] cyanocobalamin 1000 mcg sublingual tablet 1,000 microgram=1 tab, SL, Daily, # 90 tab, 3 Refill(s), Pharmacy: [facility] Active 08/26/2017 [facility] pantoprazole 40 mg oral enteric coated tablet 40 mg=1 tab, PO, Daily, # 30 tab, 0 Refill(s), other Active 08/26/2017 [facility] lamotrigine 200 MG Oral Tablet 200 mg=1 tab, PO, BID, # 60 tab, 0 Refill(s), other Active 08/26/2017 [facility] Microencapsulated Potassium Chloride 10 MEQ Extended Release Oral Tablet [Klor-Con] 10 mEq=1 tab, PO, Daily, # 90 tab, 1 Refill(s), [id number] Active 07/26/2017 [facility] Aspirin Low Dose 81 mg oral tablet =1 tab, PO, Daily, # 100 tab, 3 Refill(s) Active 07/21/2015 [facility] acetaminophen 325 mg oral tablet 650 mg=2 tab, PO, Q4H, PRN Pain 1-3/Temp > 100.4 F, 0 Refill(s) Active 07/21/2015 [facility] pantoprazole 40 mg oral enteric coated tablet 40 mg=1 tab, PO, Before Dinner, 0 Refill(s) Active 07/21/2015 [facility] Folic Acid 1 MG Oral Tablet 1 mg=1 tab, PO, Daily, 0 Refill(s) Active 07/21/2015 [facility] docusate sodium 100 mg oral capsule 100 mg=1 cap, PO, BID, PRN Constipation, 0 Refill(s) Active 07/21/2015 [facility] diphenhydrAMINE 25 mg oral tablet 12.5 mg=0.5 tab, PO, Q6H, PRN Itching, 0 Refill(s) Active 07/21/2015 [facility] bisacodyl 5 mg oral enteric coated tablet 5 mg=1 tab, PO, Q24H, PRN Constipation, 0 Refill(s) Active 07/21/2015 [facility] Aluminum Hydroxide 80 MG/ML / Magnesium Hydroxide 80 MG/ML / Simethicone 8 MG/ML Oral Suspension [Maalox Max] 5 ml, PO, QID, PRN Indigestion, # 200 ml, 0 Refill(s) Active 07/21/2015 [facility] Sodium Chloride 0.154 MEQ/ML Injectable Solution 250 mL, Rate: Titrate, Dosing Weight 80, kg, Route: IV, Total Volume: 250, Start Date: 07/20/15 14:59:00, Duration: 1 day, Stop date: 07/21/15 14:58:00, Replace Every: 24 hr No Longer Active 07/20/2015 [facility] Benadryl 25 mg, 1 tab, Route: PO, Drug form: TAB, ONCE, Dosing Weight 80, kg, prior to blood tranfusion, Start date: 07/20/15 9:26:00, Stop date: 07/20/15 9:26:00 Inactive 07/20/2015 [facility] Tylenol 650 mg, 20.3 mL, Route: PO, Drug form: LIQ, ONCE, Dosing Weight 80, kg, prior to blood transfusion, Start date: 07/20/15 9:26:00, Stop date: 07/20/15 9:26:00Notes: Max zygpqdxenuokl=8811ip/day (4 gm/day). (Same as: Tylenol) Inactive 07/20/2015 [facility] Vitamin B12 1,000 microgram, 2 tab, Route: PO, Drug form: TAB, Daily, Dosing Weight 80, kg, Start date: 07/20/15 9:00:00, Duration: 30 day, Stop date: 08/18/15 9:00:00Notes: (Same As: Vitamin B12) No Longer Active 07/20/2015 [facility] Folic Acid 1 mg, 1 tab, Route: PO, Drug form: TAB, Daily, Dosing Weight 80, kg, Start date: 07/20/15 9:00:00, Duration: 30 day, Stop date: 08/18/15 9:00:00Notes: (Same as: Folvite) No Longer Active 07/20/2015 [facility] Procrit 40,000 unit, 2 mL, Route: SUB-Q, Drug form: INJ, Q7D, Dosing Weight 80, kg, For Oncology Patients, Start date: 07/19/15 18:22:00, Stop date: 08/16/15 17:00:00Notes: (Same as: Procrit) epoetin nakul 20 000 unit/1 ml VL WASTE: F/P - Red; E -Red No Longer Active 07/19/2015 [facility] Venofer 200 mg, 10 mL, Route: IVPB, Daily, Dosing Weight 80, kg, Start date: 07/18/15 17:00:00, Duration: 5 doses or times, Stop date: 07/22/15 17:00:00Notes: Each 5ml contains 100mg elemental iron. Mix with NS (Same as:Venofer) Administer IV only. MEDICATION WASTE Product Size: 100 mg Product Wasted: ___ mg No Longer Active 07/18/2015 [facility] ferrous sulfate 325 mg, 1 tab, Route: PO, Drug form: ECTAB, BID, Dosing Weight 80, kg, Start date: 07/18/15 10:50:00, Duration: 30 day, Stop date: 08/17/15 9:00:00Notes: Give with food. "Do Not Crush" No Longer Active 07/18/2015 [facility] Vancomycin 6.67 MG/ML Injectable Solution 1 gm, Route: IVPB, Q12H, Dosing Weight 80, kg, Time Critical Medication, Start date: 07/17/15 22:00:00, Duration: 1 doses or times, Stop date: 07/17/15 22:00:00, Pharmacy to adjust dose for renal functionNotes: TIME CRITICAL MEDICATION (Same As: Vancocin) Infusion rate 2001 mg: infuse over 2.5 hours MEDICATION WASTE Product Size: 1000 mg Product Wasted: ___ mg Inactive 07/18/2015 [facility] docusate sodium 100 mg oral capsule 100 mg, 1 cap, Route: PO, Drug form: CAP, BID, Dosing Weight 80, kg, Start date: 07/17/15 17:00:00, Duration: 30 day, Stop date: 08/16/15 9:00:00Notes: (Same as: Colace) (Do Not Crush) No Longer Active 07/17/2015 [facility] ceFAZolin (SCIP) 2 gm, 100 mL, Route: IVPB, Drug form: INJ, Q8H, Dosing Weight 80, kg, Start date: 07/17/15 16:00:00, Duration: 3 doses or times, Stop date: 07/18/15 8:00:00Notes: Same as: Ancef No Longer Active 07/17/2015 [facility] D5W 1/2NS + KCL 20mEq/L 1000ml (Premix) 1,000 mL 1,000 mL, Rate: 40 ml/hr, Infuse over: 25 hr, Route: IV, Dosing Weight 80 kg, Total Volume: 1,000, Start date: 07/17/15 13:12:00, Duration: 30 day, Stop date: 08/16/15 13:11:00Notes: PREMIX IV - Do Not Alter WASTE: F/P - Sink; E - Municipal Trash Bin No Longer Active 07/17/2015 [facility] Acetaminophen 325 MG / Hydrocodone Bitartrate 10 MG Oral Tablet [[place] 10/325] 2 tab, Route: PO, Drug Form: TAB, Dosing Weight 80, kg, Q6H, PRN See Nurse's Notes, Start date: 07/17/15 13:12:00, Duration: 30 day, Stop date: 08/16/15 13:11:00Notes: Do not exceed 4gm/day of acetaminophen. (Same as: [place] 325/10) No Longer Active 07/17/2015 [facility] Saline Flush 0.9% 10 ml, Route: IVP, Drug Form: INJ, Dosing Weight 80, kg, PRN, PRN Line Flush, Start date: 07/17/15 13:12:00, Duration: 30 day, Stop date: 08/16/15 13:11:00Notes: (Same as: BD Posiflush) No Longer Active 07/17/2015 [facility] Al hydroxide/Mg hydroxide/simethicone 200 mg-200 mg-20 mg/5 mL oral suspension 30 ml, Route: PO, Drug Form: SUSP, Dosing Weight 80, kg, Q4H, PRN Indigestion, Start date: 07/17/15 13:12:00, Duration: 30 day, Stop date: 08/16/15 13:11:00Notes: (aluminum hydroxide-magnesium hyd- simethicone [phone]/5ml MICHAEL) (Same as: Mylanta) No Longer Active 07/17/2015 [facility] Dulcolax Laxative 5 mg, 1 tab, Route: PO, Drug form: ECTAB, Q24H, Dosing Weight 80, kg, PRN Constipation, Start date: 07/17/15 13:12:00, Duration: 30 day, Stop date: 08/16/15 13:11:00Notes: (Same As: Dulcolax, Correct ol) (Do Not Crush) "Do Not Crush" No Longer Active 07/17/2015 [facility] Diphenhydramine 12.5 mg, 0.5 tab, Route: PO, Drug form: TAB, Q6H, Dosing Weight 80, kg, PRN Itching, Start date: 07/17/15 13:12:00, Duration: 30 day, Stop date: 08/16/15 13:11:00 No Longer Active 07/17/2015 [facility] Ondansetron 4 mg, 2 mL, Route: IVP, Drug form: INJ, Q6H, Dosing Weight 80, kg, PRN Nausea & Vomiting, Start date: 07/17/15 13:12:00, Duration: 30 day, Stop date: 08/16/15 13:11:00Notes: (Same as: Rose) MEDICATION WASTE Product Size: 4 mg Product Wasted: ___ mg No Longer Active 07/17/2015 [facility] Acetaminophen 325 MG / Hydrocodone Bitartrate 10 MG Oral Tablet 1 tab, Route: PO, Drug Form: TAB, Dosing Weight 80, kg, Q4H, PRN Pain Score 4-6, Start date: 07/17/15 13:12:00, Duration: 30 day, Stop date: 08/16/15 13:11:00Notes: Do not exceed 4gm/day of acetaminophen. (Same as: [place] 325/10) No Longer Active 07/17/2015 [facility] Acetaminophen 325 MG / Hydrocodone Bitartrate 5 MG Oral Tablet 1 tab, Route: PO, Drug Form: TAB, Dosing Weight 80, kg, Q4H, PRN Pain Score 4-6, Start date: 07/17/15 13:12:00, Duration: 30 day, Stop date: 08/16/15 13:11:00Notes: (Same as: [place] 325/5) Do not exceed 4gm/day of acetaminophen. No Longer Active 07/17/2015 [facility] Hydromorphone 0.3 mg, 0.3 mL, Route: IVP, Drug form: INJ, Q3H, Dosing Weight 80, kg, PRN Pain Score 4-6, Start date: 07/17/15 13:12:00, Duration: 30 day, Stop date: 08/16/15 13:11:00 No Longer Active 07/17/2015 [facility] norepinephrine (ANES) Route: IV, Drug form: INJ, ONCE, Stop date: 07/17/15 12:42:00 Inactive 07/17/2015 [facility] Hextend (ANES) (ANES) Route: IV, Drug Form: INJ, Start date: 07/17/15 12:00:00, Stop date: 07/17/15 13:00:00 Inactive 07/17/2015 [facility] hydromorphone (ANES) Route: IV, Drug form: INJ, ONCE, Stop date: 07/17/15 11:22:00 Inactive 07/17/2015 [facility] propofol (ANES) Route: IV, Drug form: INJ, ONCE, Stop date: 07/17/15 11:12:00 Inactive 07/17/2015 [facility] lidocaine (ANES) Route: IV, Drug form: INJ, ONCE, Stop date: 07/17/15 11:12:00 Inactive 07/17/2015 [facility] midazolam (ANES) Route: IV, Drug form: SOLN, ONCE, Stop date: 07/17/15 11:12:00 Inactive 07/17/2015 [facility] ondansetron (ANES) Route: IV, Drug form: INJ, ONCE, Stop date: 07/17/15 11:12:00 Inactive 07/17/2015 [facility] fentaNYL (ANES) Route: IV, Drug form: INJ, ONCE, Stop date: 07/17/15 11:07:00 Inactive 07/17/2015 [facility] ePHEDrine (ANES) Route: IV, Drug form: INJ, ONCE, Stop date: 07/17/15 10:57:00 Inactive 07/17/2015 [facility] acetaminophen (ANES) (ANES) Route: IV, Drug form: INJ, Start date: 07/17/15 10:47:00, Stop date: 07/17/15 11:47:00 Inactive 07/17/2015 [facility] potassium chloride 20 mEq, 1 tab, Route: PO, Drug form: ERTAB, ONCE, Dosing Weight 80, kg, Start date: 07/17/15 10:24:00, Stop date: 07/17/15 10:24:00Notes: (Same as: Lizeth-Danica 20) "Do Not Crush" With food and full glass of water Inactive 07/17/2015 [facility] vancomycin (ANES) (ANES) Route: IV, Drug form: INJ, Start date: 07/17/15 10:23:00, Stop date: 07/17/15 11:23:00 Inactive 07/17/2015 [facility] ceFAZolin (ANES) (ANES) Route: IV, Drug form: INJ, Start date: 07/17/15 10:21:00, Stop date: 07/17/15 11:21:00 Inactive 07/17/2015 [facility] Lactated Ringers Injection IV (ANES) (ANES) Route: IV, Total Volume: 1,000, Start date: 07/17/15 10:02:00, Stop date: 07/17/15 11:02:00 Inactive 07/17/2015 [facility] Klor-Con 10 10 mEq, 1 tab, Route: PO, Drug form: ERTAB, Daily, Dosing Weight 80, kg, Start date: 07/17/15 9:00:00, Duration: 30 day, Stop date: 08/15/15 9:00:00Notes: (Same as: Lizeth-Danica 10) "Do Not Crush" With food and full glass of water No Longer Active 07/17/2015 [facility] lamotrigine 200 MG Oral Tablet 200 mg, 2 tab, Route: PO, Drug form: TAB, Daily, Dosing Weight 80, kg, Start date: 07/17/15 9:00:00, Duration: 30 day, Stop date: 08/15/15 9:00:00Notes: (Same as:LaMICtal) No Longer Active 07/17/2015 [facility] Vancomycin 1 gm, Route: IVPB, ONCALL, Dosing Weight 80, kg, Start date: 07/16/15 17:00:00, Duration: 2 day, Stop date: 07/18/15 16:59:00Notes: TIME CRITICAL MEDICATION (Same As: Vancocin) Infusion rate 2001 mg: infuse over 2.5 hours MEDICATION WASTE Product Size: 1000 mg Product Wasted: ___ mg No Longer Active 07/16/2015 [facility] Cefazolin 2 gm, 100 mL, Route: IVPB, Drug form: INJ, ONCALL, Dosing Weight 80, kg, (Patients weighing Notes: Same as: Ancef No Longer Active 07/16/2015 [facility] Protonix 40 mg, 1 tab, Route: PO, Drug form: ECTAB, Before Dinner, Dosing Weight 80, kg, Start date: 07/16/15 16:30:00, Duration: 30 day, Stop date: 08/14/15 16:30:00Notes: Tablet should not be chewed or crushed. (Same as: Protonix) No Longer Active 07/16/2015 [facility] Nurse Please clarify Vitamin B12 dose taken at home Nurse Please clarify Vitamin B12 dose taken at home, 1 tab, Drug form: MISC, Route: PO, QSHIFT, 07/16/15 16:00:00, Duration: 30 day, Stop date: 08/15/15 8:00:00 Inactive 07/16/2015 [facility] Vitamin B12 125 microgram, 1.25 tab, Route: PO, Drug form: TAB, qWeek, Dosing Weight 80, kg, Start date: 07/16/15 11:00:00, Duration: 30 day, Stop date: 08/13/15 9:00:00Notes: (Same As: Vitamin B12) No Longer Active 07/16/2015 [facility] Ondansetron 4 mg, 2 mL, Route: IVP, Drug form: INJ, Q6H, Dosing Weight 80, kg, PRN Nausea & Vomiting, Start date: 07/16/15 10:35:00, Duration: 30 day, Stop date: 08/15/15 10:34:00Notes: (Same as: Zofran) MEDICATION WASTE Product Size: 4 mg Product Wasted: ___ mg No Longer Active 07/16/2015 [facility] Docusate 100 mg, 1 cap, Route: PO, Drug form: CAP, BID, Dosing Weight 80, kg, PRN Constipation, Start date: 07/16/15 10:35:00, Duration: 30 day, Stop date: 08/15/15 10:34:00Notes: (Same as: Colace) (Do Not Crush) No Longer Active 07/16/2015 [facility] Ceftriaxone 2 gm, Route: IVPB, [id number], Dosing Weight 80, kg, Priority: NOW, Start date: 07/16/15 10:31:00, Duration: 30 day, Stop date: 08/14/15 10:31:00Notes: (Same As: Rocephin). Use with 100 mL NS and infuse over 30 min MEDICATION WASTE Product Size: 2000 mg Product Wasted: ___ mg No Longer Active 07/16/2015 [facility] Dilaudid 0.5 mg, 0.5 mL, Route: IV, Drug form: INJ, Q4H, Dosing Weight 80, kg, PRN Pain Score 6-10, Start date: 07/16/15 10:31:00, Duration: 30 day, Stop date: 08/15/15 10:30:00, breakthrough pain No Longer Active 07/16/2015 [facility] Acetaminophen 325 MG / Hydrocodone Bitartrate 5 MG Oral Tablet [[place] 5/325] 2 tab, Route: PO, Drug Form: TAB, Dosing Weight 80, kg, Q6H, PRN Pain Score 7-10, Start date: 07/16/15 10:30:00, Duration: 30 day, Stop date: 08/15/15 10:29:00Notes: (Same as: [place] 325/5) Do not exceed 4gm/day of acetaminophen. No Longer Active 07/16/2015 [facility] pneumococcal capsular polysaccharide type 1 vaccine / pneumococcal capsular polysaccharide type 10A vaccine / pneumococcal capsular polysaccharide type 11A vaccine / pneumococcal capsular polysaccharide type 12F vaccine / pneumococcal capsular polysacchar 0.5 mL, Route: IM, Drug Form: INJ, Daily, Start date: 07/16/15 9:00:00, Duration: 1 doses or times, Stop date: 07/16/15 9:00:00Notes: (Same as: Pneumovax 23) Refrigerate Inactive 07/16/2015 [facility] Enoxaparin 40 mg, 0.4 mL, Route: SUB-Q, Drug form: INJ, [id number], Dosing Weight 80, kg, Start date: 07/16/15 3:00:00, Duration: 30 day, Stop date: 08/14/15 3:00:00Notes: (Same as: Lovenox) No Longer Active 07/16/2015 [facility] potassium chloride 40 mEq, Route: PO, ONCE, Dosing Weight 80, kg, Start date: 07/16/15 2:40:00, Stop date: 07/16/15 2:40:00 Inactive 07/16/2015 [facility] Calcium Gluconate 2 gm, 20 mL, Route: IVPB, PRN, Dosing Weight 80, kg, PRN Abnormal Lab Result, For NON-ICU Patients Only., Start date: 07/16/15 2:11:00, Duration: 30 day, Stop date: 08/15/15 2:10:00Notes: WASTE: F/P - Sink; E - Municipal Trash Bin No Longer Active 07/16/2015 [facility] sodium phosphate + Dextrose 5% in Water IV 250 mL 30 mmol, 10 mL, Route: IVPB, PRN, Dosing Weight 80, kg, PRN Abnormal Lab Result, For NON-ICU Patients Only., Start date: 07/16/15 2:11:00, Duration: 30 day, Stop date: 08/15/15 2:10:00 No Longer Active 07/16/2015 [facility] Magnesium Sulfate 2 gm, 50 mL, Route: IVPB, Drug form: INJ, PRN, Dosing Weight 80, kg, PRN Abnormal Lab Result, For NON-ICU Patients Only., Start date: 07/16/15 2:11:00, Duration: 30 day, Stop date: 08/15/15 2:10:00Notes: WASTE: F/P - Sink; E - Municipal Trash Bin No Longer Active 07/16/2015 [facility] Magnesium Oxide 800 mg, 2 tab, Route: PO, Drug form: TAB, PRN, Dosing Weight 80, kg, PRN Abnormal Lab Result, For NON-ICU Patients Only., Start date: 07/16/15 2:11:00, Duration: 30 day, Stop date: 08/15/15 2:10:00Notes : (Same as: Mag-Ox 400) Magnesium oxide [id number] elemental magnesium Dose=____mg magnesium oxide (___mg elemental magnesium) No Longer Active 07/16/2015 [facility] potassium chloride 20 mEq, 1 tab, Route: PO, Drug form: ERTAB, PRN, Dosing Weight 80, kg, PRN Abnormal Lab Result, For NON-ICU Patients Only, Start date: 07/16/15 2:11:00, Duration: 30 day, Stop date: 08/15/15 2:10:00Notes: (Same as: K-Dur 20) "Do Not Crush" With food and full glass of water No Longer Active 07/16/2015 [facility] potassium phosphate + Sodium Chloride 0.9% IV 250 mL 15 mmol, 5 mL, Route: IVPB, PRN, Dosing Weight 80, kg, PRN Abnormal Lab Result, For NON-ICU Patients Only., Start date: 07/16/15 2:11:00, Duration: 30 day, Stop date: 08/15/15 2:10:00Notes: (Same as: K Phosphate.) 1 mMol phoshate has 1.47 mEq potassium Infuse over 4 hours No Longer Active 07/16/2015 [facility] potassium phosphate-sodium phosphate 250 mg-278 mg-164 mg oral powder 2 pkt, Route: PO, Drug Form: PDR/REC, Dosing Weight 80, kg, PRN, PRN Abnormal Lab Result, For NON-ICU Patients Only, Start date: 07/16/15 2:11:00, Duration: 30 day, Stop date: 08/15/15 2:10:00Notes: (Same as: Neutra-Phos) Each 1.25 gm pkt has 250mg phosphorous. Mix w/2.5oz water and stir. No Longer Active 07/16/2015 [facility] Dilaudid 0.5 mg, 0.5 mL, Route: IVP, Drug form: INJ, Q6H, Dosing Weight 80, kg, PRN Pain Score 6-10, Priority: STAT, Start date: 07/16/15 1:59:00, Duration: 30 day, Stop date: 08/15/15 1:58:00 Inactive 07/16/2015 [facility] Ondansetron 4 mg, 2 mL, Route: IVP, Drug form: INJ, Q6H, Dosing Weight 80, kg, PRN Nausea & Vomiting, Start date: 07/16/15 1:59:00, Duration: 30 day, Stop date: 08/15/15 1:58:00Notes: (Same as: Zofran) ME DICATION WASTE Product Size: 4 mg Product Wasted: ___ mg No Longer Active 07/16/2015 [facility] Acetaminophen 325 mg, 1 tab, Route: PO, Drug form: TAB, Q4H, Dosing Weight 80, kg, PRN Pain Score 4-6, Start date: 07/16/15 1:59:00, Duration: 30 day, Stop date: 08/15/15 1:58:00Notes: Do not exceed 4 gm/day. (Sa me as: Tylenol) Inactive 07/16/2015 [facility] lamotrigine 200 MG Oral Tablet 200 mg=1 tab, PO, Daily, # 30 tab, 1 Refill(s) Active 07/16/2015 [facility] Dilaudid 0.2 mg, 0.2 mL, Route: IV, Drug form: INJ, Q6H, Dosing Weight 80, kg, PRN Pain Score 1-3, Start date: 07/16/15 0:40:00, Duration: 30 day, Stop date: 08/15/15 0:39:00 Inactive 07/16/2015 [facility] Dilaudid 0.5 mg, Route: IVP, ONCE, Dosing Weight 83.636, kg, Priority: STAT, Start date: 07/16/15 0:18:00, Stop date: 07/16/15 0:18:00 Inactive 07/16/2015 [facility] Ativan 1 mg, 0.5 mL, Route: IVP, Drug form: INJ, Q15Min, Dosing Weight 83.636, kg, PRN Seizure, Start date: 07/15/15 23:12:00, Duration: 2 doses or times, Stop date: Limited # of timesNotes: (Same as: Ativan) No Longer Active 07/16/2015 [facility] lamotrigine 100 MG Oral Tablet [Lamictal] =300 mg, PO, Q12H, # 180 tab, 4 Refill(s), BR[facility] MEDICALLY NECESSARY Active 01/15/2014 [facility] nitrofurantoin macrocrystals 100 mg oral capsule (Macrodantin) 100 mg=1 cap, PO, Q12H, # 8 cap, 0 Refill(s) Active 01/15/2014 [facility] Benadryl 50 mg, 1 cap, Route: PO, Drug form: CAP, ONCE, Dosing Weight 79.091, kg, Start date: 01/15/14 4:00:00, Stop date: 01/15/14 4:00:00Notes: (Same as: Benadryl) Inactive 01/15/2014 [facility] Ethanol 30 mL, Route: PO, Drug Form: LIQ, Dosing Weight 79.091, kg, ONCE, Start date: 01/15/14 4:00:00, Stop date: 01/15/14 4:00:00Notes: "Call 2 hours before next dose due" Inactive 01/15/2014 [facility] tramadol hydrochloride 50 MG Oral Tablet [Ultram] 100 mg, 2 tab, Route: PO, Drug form: TAB, ONCE, Dosing Weight 79.091, kg, Start date: 01/15/14 4:00:00, Stop date: 01/15/14 4:00:00Notes: Not to exceed 400mg/day. (Same As: Ultram) Inactive 01/15/2014 [facility] Vitamin B12 1,000 microgram, 1 tab, Route: PO, Drug form: TAB, qWeek, Dosing Weight 79.091, kg, Start date: 01/13/14 14:00:00, Duration: 30 day, Stop date: 02/10/14 9:00:00Notes: (Same As: Vitamin B-12) No Longer Active 01/13/2014 [facility] Cipro 250 mg, 1 tab, Route: PO, Drug form: TAB, Q12H, Start date: 01/13/14 12:58:00, Duration: 30 day, Stop date: 02/12/14 9:00:00Notes: May interfere w/enteral feedings - Take 1 hr before or 2 hrs after antacids, dairy pdt & minerals. On empty stomach. No Longer Active 01/13/2014 [facility] Nitrofurantoin 100 mg, 1 cap, Route: PO, Drug form: CAP, Q6H, Dosing Weight 79.091, kg, Start date: 01/13/14 11:17:00, Duration: 30 day, Stop date: 02/12/14 6:00:00Notes: Not Recommended for patients with CrCl Inactive 01/13/2014 [facility] Acetaminophen 500 mg, 1 tab, Route: PO, Drug form: TAB, ONCE, Dosing Weight 79.091, kg, Start date: 01/12/14 12:11:00, Stop date: 01/12/14 12:11:00Notes: Max acetaminophen 4000 mg/day (4 gm/day). (Same as: Tylenol Extra Strength) Inactive 01/12/2014 [facility] Klor-Con 10 10 mEq, 1 tab, Route: PO, Drug form: ERTAB, Daily, Dosing Weight 79.091, kg, Start date: 01/12/14 9:00:00, Stop date: 02/10/14 9:00:00Notes: (Same as: Klor-Con 10) "Do Not Crush" With food and full glass of water No Longer Active 01/12/2014 [facility] Difluprednate Ophthalmic (Durezol 0.05%) Difluprednate Ophthalmic (Durezol 0.05%), 1 drop, Drug form: MISC, Route: BOTH EYES, Daily, 01/12/14 9:00:00, Duration: 30 day, Stop date: 02/10/14 9:00:00 No Longer Active 01/12/2014 [facility] Lamictal 200 mg, 1 tab, Route: PO, Drug form: TAB, Q12H, Dosing Weight 79.091, kg, Start date: 01/11/14 21:00:00, Stop date: 02/10/14 9:00:00 No Longer Active 01/12/2014 [facility] Phenobarbital 32.4 MG Oral Tablet 4 tab, Route: PO, Bedtime, Dosing Weight 79.091, kg, Start date: 01/11/14 21:00:00, Duration: 30 day, Stop date: 02/09/14 21:00:00 Inactive 01/12/2014 [facility] heparin, porcine 5,000 unit, 1 mL, Route: SUB-Q, Drug form: INJ, Q12H, Dosing Weight 79.091, kg, Start date: 01/11/14 21:00:00, Duration: 30 day, Stop date: 02/10/14 9:00:00Notes: porcine heparin No Longer Active 01/12/2014 [facility] PHENObarbital 32.4mg tablet PHENObarbital 32.4mg tablet, 4 tab, Drug form: MISC, Route: PO, Bedtime, 01/11/14 21:00:00, Duration: 30 day, Stop date: 02/09/14 21:00:00 No Longer Active 01/12/2014 [facility] Vitamin B12 1,000 microgram, 1 tab, Route: PO, Drug form: TAB, qWeek, Dosing Weight 79.091, kg, Start date: 01/11/14 15:00:00, Duration: 30 day, Stop date: 02/08/14 9:00:00Notes: (Same As: Vitamin B-12) No Longer Active 01/11/2014 [facility] Acetaminophen 325 MG / Hydrocodone Bitartrate 5 MG Oral Tablet [[place] 5/325] 0.5 tab, Route: PO, Drug Form: TAB, Dosing Weight 79.091, kg, Q6H, PRN as needed for pain, Start date: 01/11/14 14:18:00, Duration: 30 day, Stop date: 02/10/14 14:17:00Notes: (Same as: [place] 325/5) Do not exceed 4gm/day of acetaminophen. No Longer Active 01/11/2014 [facility] Influenza Virus Vaccine, Inactivated [id number]-68-2007 (H3N2)-like virus ([id number] [facility] X-175C) strain / Influenza Virus Vaccine, Inactivated J-[id number], IVR-148 (H1N1) strain / Influenza Virus Vaccine, Inactivated, R-Vadywbv-5-lik 0.5 ml, Route: IM, Drug Form: SUSP, Daily, Start date: 01/11/14 9:00:00, Duration: 1 doses or times, Stop date: 01/11/14 9:00:00Notes: (Same as: Fluzone Quadrivalent) Inactive 01/11/2014 [facility] Potassium Chloride 10 MEQ Extended Release Tablet [Klor-Con] 1-2 tabs, PO, Daily Active 01/10/2014 [facility] difluprednate 0.5 MG/ML Ophthalmic Suspension [Durezol] 1 drp, BOTH EYES, Daily Active 01/10/2014 [facility] Acetaminophen 325 MG / Hydrocodone Bitartrate 5 MG Oral Tablet [[place] 5/325] 0.5 tab, PO, Q6-8H PRN for headachesSpecial Instructions: Q6- 8H PRN for headaches Active 01/10/2014 [facility] Vitamin B12 OTC 1 tablet, PO, qWeek, WEDNESDAYSSpecial Instructions: WEDNESDAYS Active 01/10/2014 [facility] lamotrigine 100 MG Oral Tablet See Instructions, 0.5 tab PO QPM x 2 wks, then 0.5 tab Q12H x 2 wks. TAKE WITH LAMOTRIGINE 200MG pills.Special Instructions: 0.5 tab PO QPM x 2 wks, then 0.5 tab Q12H x 2 wks. TAKE WITH LAMOTRIGINE 200MG pills. No Longer Active 01/10/2014 [facility] LORazepam 0.5 mg, 0.25 mL, Route: IVP, Drug form: INJ, Q20Min, Dosing Weight 75, kg, PRN Anxiety, Start date: 05/08/13 14:44:00, Duration: 3 doses or times, Stop date: Limited # of times(Same as: Ativan) Inactive [place] 05/08/2013 [facility] ondansetron 4 mg, 2 mL, Route: IVP, Drug form: INJ, ONCE, Dosing Weight 75, kg, PRN Nausea & Vomiting, Start date: 05/08/13 14:44:00(Same as: Zofran) Inactive [place] 05/08/2013 [facility] fentanyl 50 microgram, 1 mL, Route: IVP, Drug form: INJ, Q5Min, Dosing Weight 75, kg, PRN Pain Score 7-10, Start date: 05/08/13 14:44:00, Duration: 2 doses or times, Stop date: Limited # of times(Same as: Sub limaze) Preservative free. Inactive [place] 05/08/2013 [facility] Lactated Ringers Injection IV 1,000 mL 1,000 mL, Rate: 125 ml/hr, Infuse over: 8 hr, Route: IV, Dosing Weight 75 kg, Total Volume: 1,000, Start date: 05/08/13 14:44:00, Duration: 30 day, Stop date: 06/07/13 14:43:00 Inactive [place] 05/08/2013 [facility] Normosol-R PH 7.4 1,000 mL 1,000 mL, Rate: 25 ml/hr, Infuse over: 40 hr, Route: IV, Dosing Weight 75 kg, Total Volume: 1,000, Start date: 05/08/13 14:43:00, Duration: 30 day, Stop date: 06/07/13 14:42:00 Inactive [place] 05/08/2013 [facility] nitrofurantoin macrocrystals 50 mg oral capsule 50 mg=1 cap, PO, Daily, 0 Refill(s) Active 04/29/2013 [facility] phenobarbital 32.4 mg oral tablet =3 tab, PO, Bedtime, 0 Refill(s) Active 04/29/2013 [facility] Vitamin B12 1000 mcg/mL injectable solution 1,000 microgram=1 mL, IM, QMon, 0 Refill(s) Active 04/29/2013 [facility] LaMICtal 200 mg oral tablet 200 mg=1 tab, PO, BID, 0 Refill(s) Active 04/29/2013 [facility] Topamax 200 mg oral tablet 200 mg=1 tab, PO, BID, 0 Refill(s) Active 04/29/2013 [facility] aspirin 81 mg tablet, enteric coated 324 mg, 4 tab, Route: PO, Drug form: ECTAB, ONCE, Dosing Weight 77.273, kg, Priority: STAT, Start date: 04/29/13 15:05:00, Stop date: 04/29/13 15:05:00Do not crush or chew. (Same As: Ecotrin) Inactive Zalacain 04/29/2013 [facility] Allergies, Adverse Reactions, Alerts Substance Category Reaction Severity Reaction type Status Date Reported Comments Source ampicillin<sup>2</sup> Assertion Drug allergy Active 05/19/2013 Data migrated from [employer] on 08/13/14. Originally documented as AMPICILLIN[facility] ampicillin<sup>1</sup> Assertion Drug allergy Active 05/19/2013 Data migrated from [employer] on 08/13/14. Originally documented as AMPICILLIN. [facility] [place] sulfa drugs<sup>1</sup> Assertion Drug allergy Active Data migrated from [employer] on 11/11/14. Originally documented as SULFA[facility] morphine<sup>3, 4</sup> Assertion Drug allergy Active Data migrated from [employer] on 08/13/14. Originally documented as MORPHINE. [facility] morphine<sup>2, 3</sup> Assertion Drug allergy Active Data migrated from [employer] on 08/13/14. Originally documented as MORPHINE. [facility] [place] sulfa drugs<sup>4</sup> Assertion Drug allergy Active Data migrated from [employer] on 11/11/14. Originally documented as SULFA. [facility] [place] morphine Assertion Drug allergy Active [facility] sulfaSALAzine Assertion Drug allergy Active [facility] [place] morphine<sup>1</sup> Assertion Drug allergy Active Patient has hives [facility] sulfa drugs Assertion Drug allergy Active [facility] Immunizations Immunization Date Given Site Status Last Updated Comments Source influenza virus vaccine, inactivated 03/28/2016 Left Deltoid completed [facility], [facility] [place] influenza virus vaccine, inactivated 01/25/2016 Right Deltoid completed [facility], [place] pneumococcal 23-valent vaccine 07/16/2015 Right deltoid completed [facility], [place],[facility] diphtheria/pertussis, acel/tetanus adult 02/09/2015 Left Deltoid completed [facility], [facility] [place] influenza virus vaccine, inactivated 01/11/2014 Left Deltoid completed [facility], [place],[facility] Results Order Name Results Value Reference Range Date Interpretation Comments Source Abdomen/Pelvis w/wo IV contrast CT Abdomen/Pelvis w/wo IV contrast CT Exam: CT Scan of the abdomen and pelvis with and without contrast Reason for Exam: - C80.1 Malignant (primary) neoplasm, unspecified Comparison Exam: Ultrasound 01/08/2017 Technique: Multiple axial images were obtained of the abdomen and pelvis. 5 mm slices were acquired before and after injection of 100 cc Omnipaque 300 IV. Oral contrast was also given. Reformatted sagittal and coronal images were obtained for additional diagnostic information. Total exam IVO=1938 mGy-cm. This exam was performed according to our departmental dose-optimization program, which includes automated exposure control, adjustment of the MA and/or KV according to patient size and/or use of iterative reconstruction technique. Discussion: Visualized portions of the lung bases are unremarkable. The patient is status post cholecystectomy. No biliary duct dilation. Liver is unremarkable. Portal venous system is patent. Stomach is unremarkable. Spleen is slightly enlarged. No focal enhancing masses seen within the spleen. Adrenal glands and pancreas are unremarkable. Right kidney is unremarkable. 3 mm nonobstructing calcified stone in the left kidney. No hydronephrosis or hydroureter. No dilated loops of bowel. The appendix is normal. Patient is status post hysterectomy by history. Bladder is unremarkable. No appreciable lymphadenopathy. No acute bony abnormalities appreciated. No suspicious osteoblastic or osteolytic lesions. No evidence seen for abdominal aortic aneurysm or dissection. Impression: 1. No evidence to suggest metastatic disease to the abdomen or pelvis. 3 mm nonobstructing calcified stone in the left kidney. 02/28/2017 - - Read by: Geo Murry MD Dictated Date/time: 02/28/17 13:28 Electronically Signed by: Geo Murry MD 02/28/17 13:48 FINAL REPORT [facility] Abdomen complete US Abdomen complete US EXAM: Abdomen complete US HISTORY: R11.10 Vomiting, unspecified - R11.10 Vomiting, unspecified COMPARISON: None FINDINGS: Liver: Measures 14.3 cm in length (normal: 13-17 cm). Echogenicity is increased, suggesting fatty infiltration and/or chronic hepatocellular disease. This decreases sensitivity for focal liver lesions although none is seen. Portal vein is patent with hepatopedal flow. Biliary: The gallbladder is absent. There is no biliary duct dilation. Mid common bile duct measures 6 mm in diameter. Pancreas: No focal lesion. However, certain portions are obscured by overlying bowel gas and unable to be evaluated. Spleen: Measures 14 cm in maximal dimension (normal < 13 cm). No focal lesion is seen. Kidneys: Right and left measure 10.7 and 11.5 cm in length, respectively (normal for age). No hydronephrosis, suspicious renal mass, or large shadowing stone. Vascular: Visualized portions of the IVC are patent. No obvious aneurysmal dilatation of the aorta. IMPRESSION: Hepatic echogenicity suggests fatty infiltration and/or chronic hepatocellular disease. Mild splenomegaly. 01/08/2017 - - Read by: Jorgito Vega MD Dictated Date/time: 01/08/17 14:47 Electronically Signed by: Jorgito Vega MD 01/08/17 14:49 FINAL REPORT [facility] Pelvis AP DX Pelvis AP DX Study: Pelvis, single view Clinical Indication: Pelvic pain post injury Comparison: None FINDINGS: Single frontal view of the pelvis shows no acute displaced bony fracture or joint dislocation. Bones are demineralized. Postoperative changes of prior left hip hemiarthroplasty are noted. Calcified phleboliths in the pelvis are seen. IMPRESSION: No acute bony abnormality of the pelvis. SL: [id number] 01/23/2016 - - Read by: Edgar Hdz MD Dictated Date/time: 01/23/16 15:52 Electronically Signed by: Edgar Hdz MD 01/23/16 15:53 FINAL REPORT [facility] Brain wo contrast CT Brain wo contrast CT Patient Name: ROCHELLE CALDERA : 1940; Age: 75 years Female MR: [id number] Study: Brain wo contrast CT 01/23/2016 1:50 PM CDT Clinical Indication: Headache with Trauma. COMPARISON: July 15, 2015. TECHNIQUE: CT images were obtained from the foramen magnum to the vertex without the use of intravenous contrast on a multidetector CT. Coronal and sagittal reconstructions were obtained. FINDINGS: BRAIN PARENCHYMA: Chronic left lateral basal ganglia chronic lacunar infarction. There is generalized brain parenchymal atrophy related to the patient's age. Nonspecific periventricular white matter disease changes are noted. Atherosclerotic calcifications are present within the carotid siphons and distal vertebral arteries. There are no focal mass lesions on this noncontrast head CT. There is no mass effect, midline shift or edema. There are no intra-axial or extra-axial fluid collections. There is no intraventricular or intraparenchymal hemorrhage. There is no noncontrast CT evidence of a subacute stroke. The pineal, sellar, brainstem, cerebellum and skull base regions appear normal. VENTRICLES: The lateral ventricles, third and fourth ventricles appear normal. The basilar cisterns are normal. ORBITS, MASTOIDS AND PARANASAL SINUSES: The visualized orbits are normal. Moderate ethmoid sinus mucosal thickening. Right maxillary sinus polyp or mucous retention cyst incompletely evaluated. Mild sphenoid sinus mucosal thickening. The mastoid air cells are clear. SKULL: There are no calvarial abnormalities seen. If there is further concern for intracranial pathology or acute stroke, MRI of the brain may be performed for complete assessment. IMPRESSION: 1. Chronic age-related and small vessel ischemic changes without mass, hemorrhage or subacute stroke. 2. Sinus disease as described above. SL: [id number] 01/23/2016 - - Read by: Ayo Lee MD Dictated Date/time: 01/23/16 15:38 Electronically Signed by: Ayo Lee MD 01/23/16 15:41 FINAL REPORT [facility] Spine cervical wo contrast CT (ER) Spine cervical wo contrast CT (ER) Patient Name: ROCHELLE CALDERA : 1940; Age: 75 years Female MR: [id number] Study: Spine cervical wo contrast CT (ER) 01/23/2016 1:50 PM CDT Clinical Indication: Pain Post Trauma. . COMPARISON: None Technique: Multi-detector CT imaging of the cervical spine is performed. Coronal and sagittal reconstructions were obtained. FINDINGS: ALIGNMENT AND GENERAL ASSESSMENT: There is normal alignment of the cervical spine. There are no acute fractures or subluxations. The craniocervical junction is normal. The atlanto-dental alignment appears normal. The posterior elements and spinous processes are normal. The facet joint, spinolaminar and spinous process alignment are normal. DISC SPACES AND SOFT TISSUES: The prevertebral soft tissues are normal. There are multilevel degenerative changes throughout the cervical spine with anterior and posterior osteophytes, as well as bilateral uncovertebral and facet hypertrophy. Mild spurring anterior to C4-C5. MRI is the gold standard to assess for disc disease. VISUALIZED LUNG APICES: Normal. CT myelogram or MRI of the cervical spine may be performed, if there is further concern. IMPRESSION: Degenerative changes within the cervical spine without acute fractures or subluxations. SL: [id number] 01/23/2016 - - Read by: Ayo Lee MD Dictated Date/time: 01/23/16 15:57 Electronically Signed by: Ayo Lee MD 01/23/16 16:03 FINAL REPORT [facility] HEMATOLOGY Hgb 9.2 g/dL 12.0 - 16.0 07/21/2015 [facility] HEMATOLOGY Hct 27.9 % 36.0 - 48.0 07/21/2015 [facility] BLOOD [facility] RESULTS Antibody Scrn Negative (07/20/15 10:04 AM) 07/20/2015 [facility] BLOOD [facility] RESULTS ABO/Rh O POS 07/20/2015 [facility] BLOOD BANK RESULTS RBC product Product available 1 (07/20/15 9:24 AM) 07/20/2015 Result Comment: 07/20/2015 11:35 [id number] notified Edgar at 07/20/2015 11:35 [facility] CHEM PANEL eGFR 94 mL/min/1.73m2 07/20/2015 Result Comment: The eGFR is calculated using the CKD-EPI formula. In most young, healthy individuals the eGFR will be >90 mL/min/1.73m2. The eGFR declines with age. An eGFR of 60-89 may be normal in some populations, particularly the elderly, for whom the CKD-EPI formula has not been extensively validated. Use of the eGFR is not recommended in the following populations: Individuals with unstable creatinine concentrations, including patients and those with serious co-morbid conditions. Patients with extremes in muscle mass or diet. The data above are obtained from the National Kidney Disease Education Program (NKDEP) which additionally recommends that when the eGFR is used in patients with extremes of body mass index for purposes of drug dosing, the eGFR should be multiplied by the estimated BMI. [facility] CHEM PANEL CO2 28 meq/L 24 - 32 07/20/2015 [facility] CHEM PANEL Calcium Lvl 8.3 mg/dL 8.5 - 10.5 07/20/2015 [facility] CHEM PANEL Chloride Lvl 106 meq/L 95 - 109 07/20/2015 [facility] CHEM PANEL Potassium Lvl 3.5 meq/L 3.5 - 5.1 07/20/2015 [facility] CHEM PANEL Creatinine Lvl 0.53 mg/dL 0.50 - 1.40 07/20/2015 [facility] CHEM PANEL Sodium Lvl 140 meq/L 135 - 145 07/20/2015 [facility] CHEM PANEL Glucose Lvl 99 mg/dL 70 - 99 07/20/2015 [facility] CHEM PANEL BUN 8 mg/dL 7 - 22 07/20/2015 [facility] CHEM PANEL AGAP 9.5 meq/L 10.0 - 20.0 07/20/2015 [facility] HEMATOLOGY Lymphocytes # 1.0 K/CMM 1.0 - 5.5 07/20/2015 [facility] HEMATOLOGY Segs 54.0 % 45.0 - 75.0 07/20/2015 [facility] HEMATOLOGY Segs-Bands # 2.3 K/CMM 1.5 - 8.1 07/20/2015 [facility] HEMATOLOGY Monocytes # 1.0 K/CMM 0.0 - 0.8 07/20/2015 [facility] Lymphocytes 23.0 % 20.0 - 40.0 07/20/2015 [facility] HEMATOLOGY Bands 0.0 % 0.0 - 11.0 07/20/2015 [facility] Monocytes 23.0 % 2.0 - 12.0 07/20/2015 [facility] Atypical Lymphs 0.0 % <=0.0 % 07/20/2015 [facility] RBC Morph Normal (07/20/15 6:50 AM) 07/20/2015 [facility] Plt Morph Normal (07/20/15 6:50 AM) 07/20/2015 [facility] Platelet 142 K/CMM 133 - 450 07/20/2015 [facility] MPV 9.0 fL 7.4 - 10.4 07/20/2015 [facility] RDW 16.6 % 11.5 - 14.5 07/20/2015 [facility] MCHC 32.1 g/dL 32.0 - 36.0 07/20/2015 [facility] MCH 27.0 pg 27.0 - 31.0 07/20/2015 [facility] MCV 84.2 fL 80.0 - 98.0 07/20/2015 [facility] Hct 20.6 % 36.0 - 48.0 07/20/2015 [facility] WBC 4.2 K/CMM 3.7 - 10.4 07/20/2015 [facility] RBC 2.45 M/CMM 4.20 - 5.40 07/20/2015 [facility] Hgb 6.6 g/dL 12.0 - 16.0 07/20/2015 Result Comment: Critical Result(s) called to Edgar Samuels at 07/20/2015 08:02 by [facility]. Read back OK. [facility] ELECTROLYTES AGAP 11.4 meq/L 10.0 - 20.0 07/19/2015 [facility] ELECTROLYTES eGFR 94 mL/min/1.73m2 07/19/2015 Result Comment: The eGFR is calculated using the CKD-EPI formula. In most young, healthy individuals the eGFR will be >90 mL/min/1.73m2. The eGFR declines with age. An eGFR of 60-89 may be normal in some populations, particularly the elderly, for whom the CKD-EPI formula has not been extensively validated. Use of the eGFR is not recommended in the following populations: Individuals with unstable creatinine concentrations, including patients and those with serious co-morbid conditions. Patients with extremes in muscle mass or diet. The data above are obtained from the National Kidney Disease Education Program (NKDEP) which additionally recommends that when the eGFR is used in patients with extremes of body mass index for purposes of drug dosing, the eGFR should be multiplied by the estimated BMI. [facility] ELECTROLYTES Chloride Lvl 101 meq/L 95 - 109 07/19/2015 [facility] ELECTROLYTES CO2 27 meq/L 24 - 32 07/19/2015 [facility] ELECTROLYTES Sodium Lvl 136 meq/L 135 - 145 07/19/2015 [facility] ELECTROLYTES Potassium Lvl 3.4 meq/L 3.5 - 5.1 07/19/2015 [facility] ELECTROLYTES Calcium Lvl 7.6 mg/dL 8.5 - 10.5 07/19/2015 [facility] ELECTROLYTES BUN 8 mg/dL 7 - 22 07/19/2015 [facility] ELECTROLYTES Creatinine Lvl 0.52 mg/dL 0.50 - 1.40 07/19/2015 [facility] ELECTROLYTES Glucose Lvl 110 mg/dL 70 - 99 07/19/2015 [facility] HEMATOLOGY Segs 68.0 % 45.0 - 75.0 07/19/2015 [facility] Lymphocytes 14.0 % 20.0 - 40.0 07/19/2015 [facility] Monocytes 10.0 % 2.0 - 12.0 07/19/2015 [facility] Bands 7.0 % 0.0 - 11.0 07/19/2015 [facility] Metamyelocytes 1.0 % 0.0 - 1.0 07/19/2015 [facility] Atypical Lymphs 0.0 % <=0.0 % 07/19/2015 [facility] Plt Morph Normal (07/19/15 3:33 AM) 07/19/2015 [facility] RBC Morph Normal (07/19/15 3:33 AM) 07/19/2015 [facility] Segs-Bands # 3.9 K/CMM 1.5 - 8.1 07/19/2015 [facility] Lymphocytes # 0.7 K/CMM 1.0 - 5.5 07/19/2015 [facility] Monocytes # 0.5 K/CMM 0.0 - 0.8 07/19/2015 [facility] WBC 5.2 K/CMM 3.7 - 10.4 07/19/2015 [facility] RBC 2.45 M/CMM 4.20 - 5.40 07/19/2015 [facility] Hgb 6.7 g/dL 12.0 - 16.0 07/19/2015 Result Comment: Critical Result(s) called to regan at 07/19/2015 05:28 by id. Read back OK. [facility] MPV 8.7 fL 7.4 - 10.4 07/19/2015 [facility] Platelet 137 K/CMM 133 - 450 07/19/2015 [facility] MCHC 33.1 g/dL 32.0 - 36.0 07/19/2015 [facility] RDW 16.4 % 11.5 - 14.5 07/19/2015 [facility] MCH 27.3 pg 27.0 - 31.0 07/19/2015 [facility] Hct 20.2 % 36.0 - 48.0 07/19/2015 [facility] MCV 82.4 fL 80.0 - 98.0 07/19/2015 [facility] ANEMIA STUDY UIBC 166 ug/dl 110 - 370 07/19/2015 [facility] ANEMIA STUDY % [place] 56 % 12 - 57 07/19/2015 [facility] ANEMIA STUDY TIBC 375 ug/dl 228 - 428 07/19/2015 [facility] ANEMIA STUDY Iron 209 ug/dl 30 - 160 07/19/2015 [facility] Tot Prot (SPE) 7.6 g/dL 6.4 - 8.4 07/19/2015 [facility] Gamma Glob 1.19 g/dL 0.71 - 1.57 07/19/2015 [facility] SPE Interp No definite monoclonal proteins are identified. However, an area of asymmetry is noted within the polyclonal gamma fraction and, therefore, an underlying monoclonal protein cannot be excluded. Clinical correlation is recommended with immunofixation electrophoresis of serum and urine if clinically indicated. 07/19/2015 [facility] Albumin % 51.7 REL % 55.8 - 66.1 07/19/2015 [facility] IMMUNOLOGY Beta % 12.3 REL % 7.8 - 13.7 07/19/2015 [facility] Alpha 2 % 11.4 REL % 7.0 - 11.9 07/19/2015 [facility] Alpha 1 % 9.0 REL % 2.8 - 4.9 07/19/2015 [facility] IMMUNOLOGY Alpha 1 Glob 0.68 g/dL 0.18 - 0.41 07/19/2015 [facility] IMMUNOLOGY Albumin (SPE) 3.93 g/dL 3.57 - 5.55 07/19/2015 [facility] IMMUNOLOGY Beta Glob 0.93 g/dL 0.50 - 1.15 07/19/2015 [facility] IMMUNOLOGY Alpha 2 Glob 0.87 g/dL 0.45 - 1.00 07/19/2015 [facility] IMMUNOLOGY Gamma % 15.6 REL % 11.1 - 18.7 07/19/2015 [facility] Haptoglobin 154 mg/dL 16 - 200 07/19/2015 [facility] BLOOD BANK RESULTS RBC product Product available (07/18/15 9:45 AM) 07/18/2015 [facility] ANEMIA STUDY Vitamin B12 Lvl 607 pg/mL 254 - 1320 07/18/2015 [facility] CHEM PANEL eGFR 92 mL/min/1.73m2 07/18/2015 Result Comment: The eGFR is calculated using the CKD-EPI formula. In most young, healthy individuals the eGFR will be >90 mL/min/1.73m2. The eGFR declines with age. An eGFR of 60-89 may be normal in some populations, particularly the elderly, for whom the CKD-EPI formula has not been extensively validated. Use of the eGFR is not recommended in the following populations: Individuals with unstable creatinine concentrations, including patients and those with serious co-morbid conditions. Patients with extremes in muscle mass or diet. The data above are obtained from the National Kidney Disease Education Program (NKDEP) which additionally recommends that when the eGFR is used in patients with extremes of body mass index for purposes of drug dosing, the eGFR should be multiplied by the estimated BMI. [facility] CHEM PANEL Glucose Lvl 138 mg/dL 70 - 99 07/18/2015 [facility] CHEM PANEL Calcium Lvl 7.0 mg/dL 8.5 - 10.5 07/18/2015 Result Comment: Critical Result(s) called to pauline dumont at 07/18/2015 06:23 by [email or web address]. Read back OK. [facility] CHEM PANEL AGAP 9.1 meq/L 10.0 - 20.0 07/18/2015 [facility] CHEM PANEL CO2 28 meq/L 24 - 32 07/18/2015 [facility] CHEM PANEL Chloride Lvl 103 meq/L 95 - 109 07/18/2015 [facility] CHEM PANEL Sodium Lvl 136 meq/L 135 - 145 07/18/2015 [facility] CHEM PANEL BUN 12 mg/dL 7 - 22 07/18/2015 [facility] CHEM PANEL Potassium Lvl 4.1 meq/L 3.5 - 5.1 07/18/2015 [facility] CHEM PANEL Creatinine Lvl 0.57 mg/dL 0.50 - 1.40 07/18/2015 [facility] HEMATOLOGY MCV 83.1 fL 80.0 - 98.0 07/18/2015 [facility] HEMATOLOGY RBC 2.63 M/CMM 4.20 - 5.40 07/18/2015 [facility] HEMATOLOGY WBC 5.3 K/CMM 3.7 - 10.4 07/18/2015 [facility] RDW 16.2 % 11.5 - 14.5 07/18/2015 [facility] Platelet 159 K/CMM 133 - 450 07/18/2015 [facility] MPV 8.5 fL 7.4 - 10.4 07/18/2015 [facility] MCH 27.4 pg 27.0 - 31.0 07/18/2015 [facility] MCHC 33.0 g/dL 32.0 - 36.0 07/18/2015 [facility] Lymphocytes # 0.5 K/CMM 1.0 - 5.5 07/18/2015 [facility] Basophils 0.2 % 0.0 - 1.0 07/18/2015 [facility] Segs-Bands # 3.4 K/CMM 1.5 - 8.1 07/18/2015 [facility] Monocytes # 1.4 K/CMM 0.0 - 0.8 07/18/2015 [facility] Monocytes 25.7 % 2.0 - 12.0 07/18/2015 [facility] Segs 64.3 % 45.0 - 75.0 07/18/2015 [facility] Lymphocytes 9.8 % 20.0 - 40.0 07/18/2015 [facility] PT 16.7 s 12.0 - 14.7 07/17/2015 [facility] HEMATOLOGY INR 1.32 0.85 - 1.17 07/17/2015 [facility] PTT 35.6 s 22.9 - 35.8 07/17/2015 [facility] Femur series DX Femur series DX Left femur, 2 views HISTORY: Fracture. COMPARISON: Left femur radiography dated 07/15/2015 FINDINGS: The highly comminuted, displaced, and angulated distal femoral shaft fracture has been reduced and internally fixated with long lateral plate and screws. Overall alignment appears satisfactory. There is only mild residual posterior displacement of a large butterfly fragment. SL: [id number] 07/17/2015 - - Read by: Florencio Espinoza MD Dictated Date/time: 07/17/15 14:19 Electronically Signed by: Florencio Espinoza MD 07/17/15 14:20 FINAL REPORT [facility] Femur series DX Femur series DX C-arm spot images from the operating room show a distal lateral femoral sideplate and screws. The fracture fragments are not well on the spot images evaluated due to magnification. SL [id number] 07/17/2015 - - Read by: Wisam Rocha MD Dictated Date/time: 07/17/15 15:04 Electronically Signed by: Wisam Rocha MD 07/17/15 15:05 FINAL REPORT [facility] HEMATOLOGY Basophils 0.8 % 0.0 - 1.0 07/17/2015 [facility] BLOOD BANK RESULTS ABO/Rh O POS 07/17/2015 [facility] BLOOD BANK RESULTS Antibody Scrn Negative (07/16/15 7:42 PM) 07/17/2015 [facility] Hip wo contrast CT Hip wo contrast CT CT LEFT HIP WITHOUT CONTRAST HISTORY: Fall, left hip pain. COMPARISON: Pelvis and left femur radiography dated 07/15/2015 FINDINGS: Left hip hemiarthroplasty is again noted. Bones are osteopenic. No fracture or dislocation. On the last images of the study at the level of the tip of the femoral stem of the arthroplasty there is a complex fluid collection or mass abutting the posterior cortex of the femoral shaft which is incompletely visualized but measures at least 2.6 x 2.9 cm in axial cross section (axial series 3 images 91- 97). This lesion is suspicious for deep soft tissue hematoma. Mass not excluded. Mild/moderate muscular atrophy in the left thigh. IMPRESSION: 1. No fracture. 2. Complex fluid collection or hypodense mass in the deep soft tissues of the thigh along the posterior cortex of the femoral shaft is incompletely visualized and suspicious for soft tissue hematoma. Neoplasm not excluded. Recommend MRI of the left thigh without and with IV contrast for further evaluation. SL: [id number] 07/16/2015 - - Read by: Florencio Espinoza MD Dictated Date/time: 07/16/15 15:55 Electronically Signed by: Florencio Espinoza MD 07/16/15 16:00 FINAL REPORT [facility] Ankle wo contrast CT Ankle wo contrast CT CT LEFT ANKLE WITHOUT CONTRAST WITH SAGITTAL AND CORONAL REFORMATTED IMAGES HISTORY: Fracture, trauma, fall. COMPARISON: Left ankle radiography dated 07/15/2015 FINDINGS: Bones are markedly osteopenic. Bimalleolar fracture with mild medial angulation of the fracture fragments and foot relative to the tibial shaft again noted. Nondisplaced sagittal plane fracture through the base of the medial malleolus. Mildly impacted and angulated transverse fracture through the distal tibial metaphysis. No intra-articular extension. Minimal comminution. Mildly angulated fracture of the distal fibular shaft. Ankle mortise is intact. No fracture of the calcaneus or talus. IMPRESSION: Mildly angulated bimalleolar ankle fracture including transverse fracture through the distal tibial metaphysis. SL: [id number] 07/16/2015 - - Read by: Florencio Espinoza MD Dictated Date/time: 07/16/15 16:03 Electronically Signed by: Florencio Espinoza MD 07/16/15 16:08 FINAL REPORT [facility] CHEM PANEL Magnesium Lvl 2.1 mg/dL 1.8 - 2.4 07/16/2015 [facility] CHEM PANEL Phosphorus 3.4 mg/dL 2.5 - 4.5 07/16/2015 [facility] CHEM PANEL Bili Direct 0.4 mg/dL 0.0 - 0.3 07/16/2015 [facility] CHEM PANEL Bili Total 1.6 mg/dL 0.2 - 1.3 07/16/2015 [facility] CHEM PANEL Bili Indirect 1.2 mg/dL 0.0 - 1.0 07/16/2015 [facility] HEMATOLOGY Plt Morph Clumped (07/16/15 7:43 AM) 07/16/2015 [facility] HEMATOLOGY RBC Morph Normal (07/16/15 7:43 AM) 07/16/2015 [facility] HEMATOLOGY Polychrom Slight 07/16/2015 [facility] HEMATOLOGY Basophils 0.6 % 0.0 - 1.0 07/16/2015 [facility] URINE AND STOOL UA Color Karlie 07/16/2015 [facility] URINE AND STOOL UA Leuk Est Moderate *ABN* (07/16/15 2:21 AM) Negative 07/16/2015 [facility] URINE AND STOOL UA Sq Epi Few /LPF Few /LPF 07/16/2015 [facility] URINE AND STOOL UA Nitrite Negative (07/16/15 2:21 AM) Negative 07/16/2015 [facility] URINE AND STOOL UA pH 5.0 5.0 - 8.0 07/16/2015 [facility] URINE AND STOOL UA Turbidity Marked *ABN* (07/16/15 2:21 AM) Clear 07/16/2015 [facility] URINE AND STOOL UA Spec Grav 1.020 <=1.030 07/16/2015 [facility] URINE AND STOOL UA Ketones 20 mg/dL Negative mg/dL 07/16/2015 [facility] URINE AND STOOL UA Blood Small *ABN* (07/16/15 2:21 AM) Negative 07/16/2015 [facility] URINE AND STOOL UA Urobilinogen 4.0 mg/dL 0.1 - 1.0 07/16/2015 [facility] URINE AND STOOL UA Bili Negative *NA* (07/16/15 2:21 AM) Negative 07/16/2015 [facility] URINE AND STOOL UA Bacteria Many /HPF None Seen /HPF 07/16/2015 [facility] URINE AND STOOL UA Mucus Many /LPF None Seen /LPF 07/16/2015 [facility] URINE AND STOOL UA WBC 30 /HPF 0 - 5 07/16/2015 [facility] URINE AND STOOL UA RBC 4 /HPF 0 - 2 07/16/2015 [facility] URINE AND STOOL UA Protein 30 mg/dL Negative mg/dL 07/16/2015 [facility] URINE AND STOOL UA Glucose Negative mg/dL Negative mg/dL 07/16/2015 [facility] CARDIAC ENZYMES Total CK 76 unit/L 12 - 191 07/16/2015 [facility] CHEM PANEL Alk Phos 159 unit/L 39 - 136 07/16/2015 [facility] CHEM PANEL AST 16 unit/L 0 - 37 07/16/2015 [facility] CHEM PANEL ALT 13 unit/L 0 - 65 07/16/2015 [facility] CHEM PANEL Bili Total 2.2 mg/dL 0.2 - 1.3 07/16/2015 [facility] CHEM PANEL A/G Ratio 0.9 0.7 - 1.6 07/16/2015 [facility] CHEM PANEL Globulin 3.9 g/dL 2.0 - 4.0 07/16/2015 [facility] CHEM PANEL Albumin Lvl 3.7 g/dL 3.5 - 5.0 07/16/2015 [facility] CHEM PANEL Total Protein 7.6 g/dL 6.4 - 8.4 07/16/2015 [facility] CHEM PANEL B/C Ratio 22 6 - 25 07/16/2015 [facility] Brain wo contrast CT Brain wo contrast CT EXAM: CT BRAIN WITHOUT CONTRAST DATE: 07/15/2015 11:05 PM CDT INDICATION: Acute cognitive change. Recent frequent falls. COMPARISON: None. TECHNIQUE: Routine axial CT images of the brain were obtained. IV contrast: None. DLP: mGy-cm FINDINGS: Non-contrast images of the head demonstrate no edema, hemorrhage, mass lesion or other acute intracranial abnormality. A 7.0 mm extra-axial calcified lesion is present within the anterior right middle cranial fossa may represent a meningioma. Old left basal ganglia infarct is present. Prominent cerebellar atrophy is present. Henderson-white matter distinction is preserved. The ventricles are normal. The basal cisterns and sulci are normal in size. Marked atherosclerotic calcification of the distal internal carotid and vertebral arteries. Mild chronic inflammatory change of the paranasal sinus. Partial opacification of the mastoid air cells. IMPRESSION: 1. No definite acute infarct or intracranial hemorrhage detected. 2. Old left basal ganglia infarct is present. Prominent cerebellar atrophy is present. 3. A 7.0 mm extra-axial calcified lesion is present within the anterior right middle cranial fossa may represent a meningioma. If there is further concern for intracranial pathology or acute stroke, MRI of the brain may be performed for complete assessment. SL: [id number] 07/15/2015 - - Read by: Leonel Yoder MD Dictated Date/time: 07/15/15 23:54 Electronically Signed by: Leonel Yoder MD 07/15/15 23:58 FINAL REPORT [facility] Foot 2 views DX Foot 2 views DX EXAM: Left Foot 2 views DX DATE: 07/15/2015 11:02 PM CDT INDICATION: Pain from a fall COMPARISON: None. IMPRESSION: Diffuse osteopenia. Prominent diffuse soft tissue swelling about the ankle and foot. Acute fracture distal fibula and tibia with probable intra- articular extension of the tibial fracture. Mild pes planus is present. SL: [id number] 07/15/2015 - - Read by: Leonel Yoder MD Dictated Date/time: 07/16/15 00:03 Electronically Signed by: Leonel Yoder MD 07/16/15 00:04 FINAL REPORT [facility] Ankle 2 views DX Ankle 2 views DX EXAM: Left Ankle 2 views DX DATE: 07/15/2015 11:02 PM CDT INDICATION: Pain from a fall COMPARISON: None. IMPRESSION: Diffuse osteopenia. Prominent diffuse soft tissue swelling about the ankle and foot. Acute fracture of the distal tibia and fibula. SL: [id number] 07/15/2015 - - Read by: Leonel Yoder MD Dictated Date/time: 07/16/15 00:02 Electronically Signed by: Leonel Yoder MD 07/16/15 00:02 FINAL REPORT [facility] Pelvis AP DX Pelvis AP DX Study: Pelvis, single view Clinical Indication: Pelvic pain Comparison: None FINDINGS: Single frontal view of the pelvis shows diffuse bony demineralization. No acute displaced bony fracture or joint dislocation is seen. Postoperative changes of left hip hemiarthroplasty are noted. IMPRESSION: No acute bony abnormality of the pelvis. SL: [id number] 07/15/2015 - - Read by: Edgar Hdz MD Dictated Date/time: 07/15/15 22:25 Electronically Signed by: Edgar Hdz MD 07/15/15 22:26 FINAL REPORT [facility] Femur series DX Femur series DX Study: Left femur, 5 views Clinical Indication: Status post injury with left lower extremity pain Comparison: None FINDINGS: Multiple views of the left femur show postoperative changes of prior left hip hemiarthroplasty. There is an acute, mildly comminuted, displaced fracture of the distal femoral metadiaphysis with greater than one full shaft width posterior displacement of distal fracture fragment. Anatomic alignment is maintained across the hip and knee. IMPRESSION: Acute, comminuted, displaced fracture of the distal femoral metadiaphysis. SL: [id number] 07/15/2015 - - Read by: Edgar Hdz MD Dictated Date/time: 07/15/15 21:54 Electronically Signed by: Edgar Hdz MD 07/15/15 21:56 FINAL REPORT [facility] Digital Mammo Screening Wilfredo MA Digital Mammo Screening Wilfredo MA - DIGITAL MAMMO SCREENING WILFREDO MA BILATERAL DIGITAL SCREENING MAMMOGRAM WITH CAD: 03/29/2015 CLINICAL: Routine. Current study was evaluated with a Computer Aided Detection (CAD) system. Comparison is made to exams dated: 08/27/2012 mammogram, 08/09/2012 mammogram and 06/19/2011 mammogram - [facility]. The tissue of both breasts is almost entirely fat. There are benign scattered calcifications in both breasts. No significant masses, calcifications, or other findings are seen in either breast. There has been no significant interval change. IMPRESSION: BENIGN There is no mammographic evidence of malignancy. A 1 year screening mammogram is recommended. Ludwig Euceda M.D. cm/penrad:03/30/2015 11:03:23 [employer] Converter Utility Operator: Adriana BIRCH(Ilia)(Tiffanie), [facility] This exam was dictated and interpreted by [address] [place] [id number]. letter sent: Normal exam Mammogram BI-RADS: 2 Benign 03/29/2015 - - Read by: Bharathi Laurent MD Dictated Date/time: 03/30/15 11:03 Electronically Signed by: Bharathi Laurent MD 03/30/15 11:03 [facility] Bone Density DXA [employer] MA Bone Density DXA [employer] MA - Bone Density DXA [employer] MA BONE DENSITY EVALUATION: 03/29/2015 CLINICAL DATA: Post menopausal. RISK FACTORS: race. FINDINGS: Bone density evaluation was performed 03/29/2015 on the AP L1-L4 region of spine using a Hologic unit. The BMD average for the exam is 0.706 g/cm2. The T-score is -3.10 and the Z-score is -0.80. This matches the World Health Organization's criteria for osteoporosis and places the patient at a high risk for fracture. An additional bone density evaluation was performed 03/29/2015 on the right femur neck using a Hologic unit. The BMD average for the exam is 0.506 g/cm2. The T-score is -3.10 and the Z-score is -1.10. This matches the World Health Organization's criteria for osteoporosis and places the patient at a high risk for fracture. An additional bone density evaluation was performed 03/29/2015 on the right hip using a Hologic unit. The BMD average for the exam is 0.578 g/cm2. The T-score is -3.00 and the Z-score is -1.30. This matches the World Health Organization's criteria for osteoporosis and places the patient at a high risk for fracture. IMPRESSION: OSTEOPOROSIS Patient is at high risk for fracture. This exam was dictated and interpreted by Jolly Cohen [id number]. Ludwig Euceda M.D. cm/penrad:03/30/2015 15:30:02 [employer] Operator: Michelle Maravilla [facility] 03/29/2015 - - Read by: Bharathi Laurent MD Dictated Date/time: 03/30/15 15:30 Electronically Signed by: Bharathi Laurent MD 03/30/15 15:30 [facility] [place] URINE AND STOOL UA Urobilinogen <=1.0 mg/dL 0.1 - 1.0 01/12/2014 [facility] URINE AND STOOL UA Bacteria Moderate /HPF None Seen /HPF 01/12/2014 [facility] URINE AND STOOL UA RBC 1 /HPF 0 - 2 01/12/2014 [facility] URINE AND STOOL UA WBC 10 /HPF 0 - 5 01/12/2014 [facility] URINE AND STOOL UA Mucus Few /LPF None Seen /LPF 01/12/2014 [facility] URINE AND STOOL UA Leuk Est Moderate *ABN* (01/12/14 2:54 PM) Negative 01/12/2014 [facility] URINE AND STOOL UA Sq Epi Many /LPF Few /LPF 01/12/2014 [facility] URINE AND STOOL UA Nitrite Negative (01/12/14 2:54 PM) Negative 01/12/2014 [facility] URINE AND STOOL UA Glucose Negative mg/dL Negative mg/dL 01/12/2014 [facility] URINE AND STOOL UA Protein Negative mg/dL Negative mg/dL 01/12/2014 [facility] URINE AND STOOL UA pH 5.0 5.0 - 8.0 01/12/2014 [facility] URINE AND STOOL UA Spec Grav 1.012 <=1.030 01/12/2014 [facility] URINE AND STOOL UA Color Yellow *NA* (01/12/14 2:54 PM) Yellow 01/12/2014 [facility] URINE AND STOOL UA Turbidity Clear (01/12/14 2:54 PM) Clear 01/12/2014 [facility] URINE AND STOOL UA Blood Negative (01/12/14 2:54 PM) Negative 01/12/2014 [facility] URINE AND STOOL UA Ketones Negative mg/dL Negative mg/dL 01/12/2014 [facility] URINE AND STOOL UA Bili Negative *NA* (01/12/14 2:54 PM) Negative 01/12/2014 [facility] HEMATOLOGY PTT 36.5 s 22.9 - 35.8 01/11/2014 5Interpretive Data: Heparin Therapeutic Range: 57 - 92 Seconds [facility] CHEM PANEL Total Protein 6.7 g/dL 6.4 - 8.4 01/10/2014 [facility] CHEM PANEL ALT 16 unit/L 0 - 65 01/10/2014 [facility] CHEM PANEL Albumin Lvl 3.7 g/dL 3.5 - 5.0 01/10/2014 [facility] CHEM PANEL Bili Total 0.9 mg/dL 0.2 - 1.3 01/10/2014 [facility] CHEM PANEL Bili Direct 0.2 mg/dL 0.0 - 0.3 01/10/2014 [facility] CHEM PANEL Alk Phos 119 unit/L 39 - 136 01/10/2014 [facility] CHEM PANEL AST 7 unit/L 0 - 37 01/10/2014 [facility] CHEM PANEL A/G Ratio 1.2 0.7 - 1.6 01/10/2014 [facility] CHEM PANEL Globulin 3.0 g/dL 2.0 - 4.0 01/10/2014 [facility] CHEM PANEL Bili Indirect 0.7 mg/dL 0.0 - 1.0 01/10/2014 [facility] ELECTROLYTES Potassium Lvl 3.4 meq/L 3.5 - 5.1 01/10/2014 [facility] ELECTROLYTES Sodium Lvl 140 meq/L 135 - 145 01/10/2014 [facility] ELECTROLYTES CO2 25 meq/L 24 - 32 01/10/2014 [facility] ELECTROLYTES Chloride Lvl 108 meq/L 95 - 109 01/10/2014 [facility] ELECTROLYTES Creatinine Lvl 0.8 mg/dL 0.5 - 1.4 01/10/2014 [facility] ELECTROLYTES BUN 15 mg/dL 7 - 22 01/10/2014 [facility] ELECTROLYTES Glucose Lvl 94 mg/dL 70 - 99 01/10/2014 2Interpretive Data: Adult reference range values reflect the clinical guidelines of the [employer]. [facility] ELECTROLYTES Calcium Lvl 9.1 mg/dL 8.5 - 10.5 01/10/2014 [facility] ELECTROLYTES eGFR 74 mL/min/1.73m2 01/10/2014 1Result Comment: The eGFR is calculated using the CKD-EPI formula. In most young, healthy individuals the eGFR will be >90 mL/min/1.73m2. The eGFR declines with age. An eGFR of 60-89 may be normal in some populations, particularly the elderly, for whom the CKD-EPI formula has not been extensively validated. Use of the eGFR is not recommended in the following populations: Individuals with unstable creatinine concentrations, including patients and those with serious co-morbid conditions. Patients with extremes in muscle mass or diet. The data above are obtained from the National Kidney Disease Education Program (NKDEP) which additionally recommends that when the eGFR is used in patients with extremes of body mass index for purposes of drug dosing, the eGFR should be multiplied by the estimated BMI. [facility] ELECTROLYTES AGAP 10.4 meq/L 10.0 - 20.0 01/10/2014 [facility] HEMATOLOGY MCHC 35.0 g/dL 32.0 - 36.0 01/10/2014 [facility] HEMATOLOGY RDW 14.7 % 11.5 - 14.5 01/10/2014 [facility] HEMATOLOGY MPV 8.9 fL 7.4 - 10.4 01/10/2014 [facility] HEMATOLOGY Platelet 121 K/CMM 133 - 450 01/10/2014 [facility] HEMATOLOGY RBC 4.23 M/CMM 4.20 - 5.40 01/10/2014 [facility] HEMATOLOGY Hct 36.1 % 36.0 - 48.0 01/10/2014 [facility] HEMATOLOGY WBC 4.1 K/CMM 3.7 - 10.4 01/10/2014 [facility] HEMATOLOGY MCH 29.8 pg 27.0 - 31.0 01/10/2014 [facility] HEMATOLOGY Hgb 12.6 g/dL 12.0 - 16.0 01/10/2014 [facility] HEMATOLOGY MCV 85.3 fL 80.0 - 98.0 01/10/2014 [facility] HEMATOLOGY Segs 51.9 % 45.0 - 75.0 01/10/2014 [facility] HEMATOLOGY Monocytes 16.9 % 2.0 - 12.0 01/10/2014 [facility] HEMATOLOGY Basophils 0.4 % 0.0 - 1.0 01/10/2014 [facility] HEMATOLOGY Segs-Bands # 2.1 K/CMM 1.5 - 8.1 01/10/2014 [facility] HEMATOLOGY Lymphocytes 30.8 % 20.0 - 40.0 01/10/2014 [facility] HEMATOLOGY Lymphocytes # 1.2 K/CMM 1.0 - 5.5 01/10/2014 [facility] HEMATOLOGY Monocytes # 0.7 K/CMM 0.0 - 0.8 01/10/2014 [facility] TOXICOLOGY Phenobarb Lvl 19.8 ug/ml 15.0 - 40.0 01/10/2014 [facility] TOXICOLOGY Topiramate Lvl 7.5 microgram/mL 01/10/2014 4Result Comment: THERAPEUTIC RANGE for Topiramate: Dose (mg) Peak (mcg/mL) Trough (mcg/mL) 100 6.5-9.2 4.5-6.6 200 12.0-16.0 8.0-12.0 400 20.0-30.0 14.0-20.0 Test Performed at: [facility], [address] [place] [address] Tiffanie Saha MD, [facility] TOXICOLOGY Lamotrigine Lvl 6.5 microgram/mL 4.0 - 18.0 01/10/2014 3Result Comment: Test Performed at: [facility], [address] [place] [address] Tiffanie Saha MD, [facility] Brain wo contrast MRI Brain wo contrast MRI MRI BRAIN WITHOUT CONTRAST COMPARISON: 05/18/2008 MRI exam. COMMENTS: No intravenous gadolinium was given due to inability to obtain intravenous access. Stable mild to moderate cerebral atrophy is noted. There is stable mild periventricular white matter increased T2 and FLAIR signal that represents minimal microvascular ischemia versus white matter aging process. No diffusion restriction is seen. No acute intracranial hemorrhage is identified. The bilateral hippocampi appear symmetric in volume and signal. The brainstem appears unremarkable. The paranasal sinuses are well aerated. IMPRESSION: 1. No acute intracranial hemorrhage, acute ischemia, or mass. 2. Stable mild to moderate cerebral atrophy. Minimal microvascular ischemia versus white matter aging process. 09/10/2013 - - Read by: Prateek Sharp MD Dictated Date/time: 09/11/13 07:14 Electronically Signed by: Prateek Sharp MD 09/11/13 07:46 FINAL REPORT [facility] CHEMISTRY eGFR 87 mL/min/1.73m2 05/08/2013 1Result Comment: The eGFR is calculated using the CKD-EPI formula. In most young, healthy individuals the eGFR will be >90 mL/min/1.73m2. The eGFR declines with age. An eGFR of 60-89 may be normal in some populations, particularly the elderly, for whom the CKD-EPI formula has not been extensively validated. Use of the eGFR is not recommended in the following populations: Individuals with unstable creatinine concentrations, including patients and those with serious co-morbid conditions. Patients with extremes in muscle mass or diet. The data above are obtained from the National Kidney Disease Education Program (NKDEP) which additionally recommends that when the eGFR is used in patients with extremes of body mass index for purposes of drug dosing, the eGFR should be multiplied by the estimated BMI. [facility] CHEMISTRY Sodium Lvl 142 meq/L 135 - 145 05/08/2013 Normal [facility] CHEMISTRY CO2 27 meq/L 24 - 32 05/08/2013 Normal [facility] CHEMISTRY Potassium Lvl 3.8 meq/L 3.5 - 5.1 05/08/2013 Normal [facility] CHEMISTRY Calcium Lvl 8.9 mg/dL 8.5 - 10.5 05/08/2013 Normal [facility] CHEMISTRY Chloride Lvl 108 meq/L 95 - 109 05/08/2013 Normal [facility] CHEMISTRY Creatinine Lvl 0.7 mg/dL 0.5 - 1.4 05/08/2013 Normal [facility] CHEMISTRY Glucose Lvl 100 mg/dL 70 - 99 05/08/2013 HI 2Interpretive Data: Adult reference range values reflect the clinical guidelines of the [employer]. [facility] CHEMISTRY BUN 14 mg/dL 7 - 22 05/08/2013 Normal [facility] CHEMISTRY AGAP 10.8 meq/L 10.0 - 20.0 05/08/2013 Normal [facility] HEMATOLOGY MPV 8.1 fL 7.4 - 10.4 05/08/2013 Normal [facility] HEMATOLOGY RBC X 10x6 4.41 M/CMM 4.20 - 5.40 05/08/2013 Normal [facility] HEMATOLOGY Hgb 13.3 g/dL 12.0 - 16.0 05/08/2013 Normal [facility] HEMATOLOGY RDW 14.3 % 11.5 - 14.5 05/08/2013 Normal [facility] HEMATOLOGY MCHC 35.3 g/dL 32.0 - 36.0 05/08/2013 Normal [facility] HEMATOLOGY Platelet 149 K/CMM 133 - 450 05/08/2013 Normal [facility] HEMATOLOGY WBC X 10x3 5.2 K/CMM 3.7 - 10.4 05/08/2013 Normal [facility] HEMATOLOGY MCV 85.7 fL 81.0 - 99.0 05/08/2013 Normal [facility] HEMATOLOGY MCH 30.2 pg 27.0 - 31.0 05/08/2013 Normal [facility] HEMATOLOGY Hct 37.8 % 36.0 - 48.0 05/08/2013 Normal [facility] HEMATOLOGY Basophils # 0.1 K/CMM 0.0 - 0.2 05/08/2013 Normal [facility] HEMATOLOGY Eosinophils # 0.0 K/CMM 0.0 - 0.5 05/08/2013 Normal [facility] HEMATOLOGY Basophils 1.2 % 0.0 - 1.0 05/08/2013 [facility] HEMATOLOGY Eosinophils 0.0 % 0.0 - 4.0 05/08/2013 Normal [facility] HEMATOLOGY Monocytes # 0.8 K/CMM 0.0 - 0.8 05/08/2013 Normal [facility] HEMATOLOGY Segs-Bands # 3.0 K/CMM 1.5 - 8.1 05/08/2013 Normal [facility] HEMATOLOGY Lymphocytes # 1.3 K/CMM 1.0 - 5.5 05/08/2013 Normal [facility] HEMATOLOGY Lymphocytes 24.4 % 20.0 - 40.0 05/08/2013 Normal [facility] HEMATOLOGY Segs 58.2 % 45.0 - 75.0 05/08/2013 Normal [facility] HEMATOLOGY Monocytes 16.2 % 2.0 - 12.0 05/08/2013 [facility] CHEMISTRY Total CK 20 unit/L 12 - 191 04/30/2013 Normal [facility] CHEMISTRY Troponin-I null 0.00 - 0.40 04/30/2013 Normal [facility] CHEMISTRY Troponin-I null 0.00 - 0.40 04/29/2013 Normal [facility] CHEMISTRY CK MB null 0.5 - 3.6 04/29/2013 Normal [facility] CHEMISTRY Total CK 20 unit/L 12 - 191 04/29/2013 Normal [facility] CHEMISTRY eGFR 87 mL/min/1.73m2 04/29/2013 1Result Comment: The eGFR is calculated using the CKD-EPI formula. In most young, healthy individuals the eGFR will be >90 mL/min/1.73m2. The eGFR declines with age. An eGFR of 60-89 may be normal in some populations, particularly the elderly, for whom the CKD-EPI formula has not been extensively validated. Use of the eGFR is not recommended in the following populations: Individuals with unstable creatinine concentrations, including patients and those with serious co-morbid conditions. Patients with extremes in muscle mass or diet. The data above are obtained from the National Kidney Disease Education Program (NKDEP) which additionally recommends that when the eGFR is used in patients with extremes of body mass index for purposes of drug dosing, the eGFR should be multiplied by the estimated BMI. [facility] CHEMISTRY A/G Ratio 1.1 0.7 - 1.6 04/29/2013 Normal [facility] CHEMISTRY B/C Ratio 13 6 - 25 04/29/2013 Normal [facility] CHEMISTRY Globulin 3.5 g/dL 2.0 - 4.0 04/29/2013 Normal [facility] CHEMISTRY AGAP 15.0 meq/L 10.0 - 20.0 04/29/2013 Normal [facility] CHEMISTRY ASPARTATE TRANSAMINASE 17 unit/L 0 - 37 04/29/2013 Normal [facility] CHEMISTRY ALANINE AMINOTRANSFERASE 16 unit/L 0 - 65 04/29/2013 Normal [facility] CHEMISTRY Albumin Lvl 3.8 g/dL 3.5 - 5.0 04/29/2013 Normal [facility] CHEMISTRY Bili Total 0.6 mg/dL 0.2 - 1.3 04/29/2013 Normal [facility] CHEMISTRY Alk Phos 118 unit/L 39 - 136 04/29/2013 Normal [facility] CHEMISTRY Potassium Lvl 4.0 meq/L 3.5 - 5.1 04/29/2013 Normal [facility] CHEMISTRY Total Protein 7.3 g/dL 6.4 - 8.4 04/29/2013 Normal [facility] CHEMISTRY Calcium Lvl 8.9 mg/dL 8.5 - 10.5 04/29/2013 Normal [facility] CHEMISTRY Chloride Lvl 110 meq/L 95 - 109 04/29/2013 [facility] CHEMISTRY CO2 21 meq/L 24 - 32 04/29/2013 LOW [facility] CHEMISTRY Sodium Lvl 142 meq/L 135 - 145 04/29/2013 Normal [facility] CHEMISTRY Creatinine Lvl 0.7 mg/dL 0.5 - 1.4 04/29/2013 Normal [facility] CHEMISTRY Glucose Lvl 108 mg/dL 70 - 99 04/29/2013 HI 2Interpretive Data: Adult reference range values reflect the clinical guidelines of the [place] [employer]. [facility] CHEMISTRY BUN 9 mg/dL 7 - 22 04/29/2013 Normal [facility] CHEMISTRY CK-MB INDEX null 0.0 - 2.5 04/29/2013 Normal [facility] HEMATOLOGY INR 1.09 0.85 - 1.17 04/29/2013 Normal 3Interpretive Data: RECOMMENDED RANGES FOR PROTIME INR: 2.0-3.0 for most medical and surgical thromboembolic states. 2.5-3.5 for artificial heart valves and recurrent embolism. INR SHOULD BE USED ONLY FOR PATIENTS ON STABLE ANTICOAGULANT THERAPY. [facility] HEMATOLOGY aPTT 33.2 s 22.9 - 35.8 04/29/2013 Normal 4Interpretive Data: Heparin Therapeutic Range: 57 - 92 Seconds [facility] HEMATOLOGY PROTIME 14.0 s 12.0 - 14.7 04/29/2013 Normal [facility] HEMATOLOGY MCHC 33.5 g/dL 32.0 - 36.0 04/29/2013 Normal [facility] HEMATOLOGY RDW 14.6 % 11.5 - 14.5 04/29/2013 HI [facility] HEMATOLOGY MCH 29.6 pg 27.0 - 31.0 04/29/2013 Normal [facility] HEMATOLOGY MCV 88.2 fL 81.0 - 99.0 04/29/2013 Normal [facility] HEMATOLOGY Hct 38.5 % 36.0 - 48.0 04/29/2013 Normal [facility] HEMATOLOGY MPV 8.5 fL 7.4 - 10.4 04/29/2013 Normal [facility] HEMATOLOGY Platelet 141 K/CMM 133 - 450 04/29/2013 Normal [facility] HEMATOLOGY RBC X 10x6 4.36 M/CMM 4.20 - 5.40 04/29/2013 Normal [facility] HEMATOLOGY Hgb 12.9 g/dL 12.0 - 16.0 04/29/2013 Normal [facility] HEMATOLOGY WBC X 10x3 4.3 K/CMM 3.7 - 10.4 04/29/2013 Normal [facility] HEMATOLOGY Segs 64.4 % 45.0 - 75.0 04/29/2013 Normal [facility] HEMATOLOGY Eosinophils # 0.0 K/CMM 0.0 - 0.5 04/29/2013 Normal [facility] HEMATOLOGY Basophils # 0.0 K/CMM 0.0 - 0.2 04/29/2013 Normal [facility] HEMATOLOGY Monocytes # 0.5 K/CMM 0.0 - 0.8 04/29/2013 Normal [facility] HEMATOLOGY Eosinophils 0.0 % 0.0 - 4.0 04/29/2013 Normal [facility] HEMATOLOGY Basophils 0.3 % 0.0 - 1.0 04/29/2013 Normal [facility] HEMATOLOGY Segs-Bands # 2.8 K/CMM 1.5 - 8.1 04/29/2013 Normal [facility] HEMATOLOGY Lymphocytes # 1.0 K/CMM 1.0 - 5.5 04/29/2013 Normal [facility] HEMATOLOGY Lymphocytes 23.0 % 20.0 - 40.0 04/29/2013 Normal [facility] HEMATOLOGY Monocytes 12.3 % 2.0 - 12.0 04/29/2013 HI [facility] Vital Signs Vital Sign Value Date Comments Source Heart Rate 77 08/26/2017 [facility] Temperature Oral (F) 98.7 F 08/26/2017 [facility] Systolic (mm Hg) 108 08/26/2017 [facility] Diastolic (mm Hg) 69 08/26/2017 [facility] Height 160.02 cm 08/26/2017 [facility] Weight 69.119 08/26/2017 [facility] BMI Calculated 26.99 08/26/2017 [facility] Temperature Oral (F) 98.2 F 01/23/2016 [facility] Systolic (mm Hg) 121 01/23/2016 [facility] Diastolic (mm Hg) 50 01/23/2016 [facility] Heart Rate 69 01/23/2016 [facility] Respitory Rate 16 01/23/2016 [facility] Weight 84.091 01/23/2016 [facility] BMI Calculated 30.85 01/23/2016 [facility] Height 165.1 cm 01/23/2016 [facility] Respitory Rate 18 01/23/2016 [facility] Heart Rate 76 01/23/2016 [facility] Systolic (mm Hg) 128 01/23/2016 [facility] Diastolic (mm Hg) 55 01/23/2016 [facility] Temperature Oral (F) 98.2 F 01/23/2016 [facility] Respitory Rate 16 07/21/2015 [facility] Temperature Oral (F) 97.4 F 07/21/2015 [facility] Heart Rate 73 07/21/2015 [facility] Respitory Rate 14 07/21/2015 [facility] Systolic (mm Hg) 124 07/21/2015 [facility] Diastolic (mm Hg) 76 07/21/2015 [facility] Systolic (mm Hg) 113 07/21/2015 [facility] Diastolic (mm Hg) 64 07/21/2015 [facility] Heart Rate 69 07/21/2015 [facility] Temperature Oral (F) 97.6 F 07/21/2015 [facility] Systolic (mm Hg) 108 07/21/2015 [facility] Diastolic (mm Hg) 54 07/21/2015 [facility] Temperature Oral (F) 98.5 F 07/21/2015 [facility] Heart Rate 74 07/21/2015 [facility] Respitory Rate 18 07/21/2015 [facility] Height 165.1 cm 07/16/2015 [facility] Weight 80 07/16/2015 [facility] BMI Calculated 29.35 07/16/2015 [facility] Weight 83.636 07/16/2015 [facility] Diastolic (mm Hg) 73 01/16/2014 [facility] Respitory Rate 18 01/16/2014 [facility] Systolic (mm Hg) 128 01/16/2014 [facility] Temperature Oral (F) 97.9 F 01/16/2014 [facility] Temperature Oral (F) 98.7 F 01/16/2014 [facility] Heart Rate 73 01/16/2014 [facility] Diastolic (mm Hg) 61 01/16/2014 [facility] Respitory Rate 18 01/16/2014 [facility] Systolic (mm Hg) 117 01/16/2014 [facility] Systolic (mm Hg) 110 01/15/2014 [facility] Diastolic (mm Hg) 58 01/15/2014 [facility] Respitory Rate 18 01/15/2014 [facility] Heart Rate 64 01/15/2014 [facility] Temperature Oral (F) 97.4 F 01/15/2014 [facility] Heart Rate 82 01/15/2014 [facility] BMI Calculated 30.89 01/10/2014 [facility] Height 160.02 cm 01/10/2014 [facility] Weight 79.091 01/10/2014 [facility] Systolic (mm Hg) 107 05/08/2013 [facility] Diastolic (mm Hg) 51 05/08/2013 [facility] Diastolic (mm Hg) 55 05/08/2013 [facility] Respitory Rate 10 05/08/2013 [facility] Systolic (mm Hg) 107 05/08/2013 [facility] Respitory Rate 23 05/08/2013 [facility] Systolic (mm Hg) 118 05/08/2013 [facility] Diastolic (mm Hg) 52 05/08/2013 [facility] Respitory Rate 22 05/08/2013 [facility] Heart Rate 69 05/08/2013 [facility] Height 154.94 cm 05/08/2013 [facility] Weight 75 05/08/2013 [facility] Diastolic (mm Hg) 79 04/30/2013 [facility] Systolic (mm Hg) 97 04/30/2013 [facility] Respitory Rate 17 04/30/2013 [facility] Respitory Rate 16 04/30/2013 [facility] Systolic (mm Hg) 144 04/30/2013 [facility] Diastolic (mm Hg) 73 04/30/2013 [facility] Heart Rate 75 04/29/2013 [facility] Respitory Rate 18 04/29/2013 [facility] Systolic (mm Hg) 143 04/29/2013 [facility] Diastolic (mm Hg) 67 04/29/2013 [facility] Height 160.02 cm 04/29/2013 [facility] Weight 77.273 04/29/2013 [facility] Temperature Oral (F) 99.2 F 04/29/2013 [facility] Heart Rate 89 04/29/2013 [facility] Encounters Location Location Details Encounter Type Encounter Number Reason For Visit Attending Provider ADM Date DC Date Status Source [facility] Emergency [id number] JEREMIE HARRISON 04/29/2013 04/29/2013 Active [facility] DS [id number] SHANNA RICHTER 05/08/2013 05/08/2013 Active [facility] [place] [facility] [id number] [place] Saturday09/10/2013 09/11/[facility] [id number] Yodit Horton 01/10/2014 01/16/2014 [facility] Outpatient [id number] SHANTANU UP 03/23/2015 Active [facility] [place] [facility] [id number] Shantanu Up 03/29/2015 03/30/2015 [facility] [place] Outpatient [id number] SHANTANU UP 04/06/[address] [facility] Outpatient [id number] SHANTANU UP 04/07/[address] [facility] Outpatient [id number] SHANTANU UP 06/03/2015 Active [facility] Inpatient [id number] David Zen 07/16/2015 07/21/2015 [facility] Outpatient [id number] SHANTANU UP 09/07/2015 Active [facility] Emergency [id number] Rafael Morenomar 01/23/2016 01/23/2016 [facility] Outpatient [id number] SHANTANU UP 01/25/[address] [facility] Outpatient [id number] SHNATANU UP 03/14/[address] [facility] Outpatient [id number] SHANTANU UP 03/21/[address] [facility] Outpatient [id number] SHANTANU UP 03/28/[address] [facility] Outpatient [id number] SHANTANU UP 11/08/2016 Active [facility] [place] [facility] [id number] Enrique Posey 01/08/2017 01/09/[address] [place] [facility] [place] [facility] [id number] Enrique Posey 02/28/2017 03/01/2017 [facility] [place] Outpatient [id number] SHANTANU UP 04/01/2017 Active [facility] [place] Ambulatory Pre-Reg [id number] Davidnasrin Zaldivar 04/01/2017 04/01/2017 [facility] [place] Phone Message [id number] 07/26/2017 07/28/2017 [facility] Outpatient [id number] SHANTANU UP 08/26/2017 Active [facility] [place] Outpatient [id number] Shantanu Up 08/26/2017 08/27/2017 [facility] Outpatient [id number] SHANTANU UP 05/06/2018 Active [facility] [place] Ambulatory Pre-Reg [id number] Shantanu Up 05/06/2018 05/06/2018 [facility] Procedures Procedure Code Date Perfomer Comments Source Collection of venous blood by venipuncture 87879 08/26/2017 [facility] Excision of benign tumor of breast [id number] 04/15/2002 [facility] Excision of benign tumor of breast [id number] 04/15/2002 [facility] [place] Excision of benign tumor of breast [id number] 04/15/2002 [facility] Excision of benign tumor of breast [id number] 04/15/2002 [facility] Arthroplasty of hip without cement [id number] [facility] Cholecystectomy [id number] [facility] Hysterectomy [id number] [facility] Operation [id number] [facility] Replacement [id number] [facility] Total hysterectomy [id number] [facility] Arthroplasty of hip without cement [id number] [facility] [place] Cholecystectomy [id number] [facility] [place] Hysterectomy [id number] [facility] [place] Operation [id number] [facility] [place] Replacement [id number] [facility] [place] Total hysterectomy [id number] [facility] [place] Arthroplasty of hip without cement [id number] [facility] Cholecystectomy [id number] [facility] Hysterectomy [id number] [facility] Arthroplasty of hip without cement [id number] [facility]
--- OUTSIDE RECORDS SUMMARY | 2018-05-14 16:59 | XMS REPORT | Summary of Care ---
Author Author [facility] Address Unknown Phone Unavailable Encounter ANAY Rocha(ED) [id number] Date(s): 04/01/17 - 04/01/[address] 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 2Data migrated from [employer] on 09/14/14. 3Data migrated from [employer] on 09/14/14. 4Data migrated from [employer] on 09/14/14. 5Data migrated from [employer] on 09/14/14. 6Data migrated from [employer] on 09/14/14. 7Data migrated from [employer] on 09/14/14. 8Data migrated from [employer] on 09/14/14. 9chronic UTI's 10Data migrated from [employer] on 09/14/14. Allergies, Adverse Reactions, Alerts Substance Reaction Severity Status sulfa drugs1 Active ampicillin2 Active morphine3, 4 Active 1Data migrated from [employer] on 11/11/14. Originally documented as SULFA. 2Data migrated from [employer] on 08/13/14. Originally documented as AMPICILLIN. 3Patient has hives 4Data migrated from [employer] on 08/13/14. Originally documented as MORPHINE. Medications No data available for this section Results No data available for this section Immunizations Given and Recorded Vaccine Date Status Refusal Reason influenza virus vaccine, inactivated 03/28/16 Given influenza virus vaccine, inactivated 01/25/16 Given influenza virus vaccine, inactivated 01/11/14 Given pneumococcal 23-valent vaccine 07/16/15 Given diphtheria/pertussis, acel/tetanus adult 02/09/15 Given Procedures Procedure Date Related Diagnosis Body Site Excision of benign tumor of breast 2002 Arthroplasty of hip without cement Cholecystectomy Cholecystectomy Hysterectomy Operation Replacement Total hysterectomy Social History Social History Type Response Alcohol Never Smoking Status Former smoker; Exposure to Tobacco Smoke None; Cigarette Smoking Last 365 Days No; Reg Smoking Cessation Counseling No Assessment and Plan No data available for this section
--- OUTSIDE RECORDS SUMMARY | 2018-05-14 16:59 | XMS REPORT | CCD ---
Author Author Auto Generated Organization [facility] Address Unknown Phone Unavailable Care Team Providers Care Aviation Consultant Name Role Phone Raghav Rinaldi RP Allergies, Adverse Reactions, Alerts Substance Reaction Status morphine Active Problem List Condition Effective Dates Status Seizure Resolved Medications Medication Instructions Start Date End Date Status LORazepam 0.5 mg, 0.25 mL, Route: IVP, Drug 05/08/2013 05/08/2013 Discontinued form: INJ, Q20Min, Dosing Weight 75, kg, PRN Anxiety, Start date: 05/08/13 14:44:00, Duration: 3 doses or times, Stop date: Limited # of times(Same as: Ativan) ondansetron 4 mg, 2 mL, Route: IVP, Drug form: 05/08/2013 05/08/2013 Discontinued INJ, ONCE, Dosing Weight 75, kg, PRN Nausea & Vomiting, Start date: 05/08/13 14:44:00(Same as: Zofran) fentanyl 50 microgram, 1 mL, Route: IVP, 05/08/2013 05/08/2013 Discontinued Drug form: INJ, Q5Min, Dosing Weight 75, kg, PRN Pain Score 7-10, Start date: 05/08/13 14:44:00, Duration: 2 doses or times, Stop date: Limited # of times(Same as: Sublimaze) Preservative free. Lactated Ringers 1,000 mL, Rate: 125 ml/hr, Infuse 05/08/2013 05/08/2013 Discontinued Injection IV 1,000 over: 8 hr, Route: IV, Dosing mL Weight 75 kg, Total Volume: 1,000, Start date: 05/08/13 14:44:00, Duration: 30 day, Stop date: 06/07/13 14:43:00 Normosol-R PH 7.4 1,000 mL, Rate: 25 ml/hr, Infuse 05/08/2013 05/08/2013 Discontinued 1,000 mL over: 40 hr, Route: IV, Dosing Weight 75 kg, Total Volume: 1,000, Start date: 05/08/13 14:43:00, Duration: 30 day, Stop date: 06/07/13 14:42:00 Vital Signs Most recent to oldest [Reference Range]: 1 2 3 Height 154.94 cm (05/08/2013 11:09:00) Systolic Blood Pressure [90-140 mmHg] 107 mmHg (05/08/2013 17:00:00) 107 mmHg (05/08/2013 16:45:00) 118 mmHg (05/08/2013 16:30:00) Diastolic Blood Pressure [60-90 mmHg] 51 mmHg *LOW* (05/08/2013 17:00:00) 55 mmHg *LOW* (05/08/2013 16:45:00) 52 mmHg *LOW* (05/08/2013 16:30:00) Respiratory Rate [14-20 BRMIN] 10 BRMIN *LOW* (05/08/2013 16:45:00) 23 BRMIN *HI* (05/08/2013 16:30:00) 22 BRMIN *HI* (05/08/2013 16:15:00) Peripheral Pulse Rate [60-100 bpm] 69 bpm (05/08/2013 11:32:00) Weight 75 kg (05/08/2013 11:09:00) Results CHEMISTRY Most recent to oldest [Reference Range]: 1 Sodium Lvl [135-145 mEq/L] 142 mEq/L (05/08/2013 11:07:00) Potassium Lvl [3.5-5.1 mEq/L] 3.8 mEq/L (05/08/2013 11:07:00) Chloride Lvl [95-109 mEq/L] 108 mEq/L (05/08/2013 11:07:00) CO2 [24-32 mEq/L] 27 mEq/L (05/08/2013 11:07:00) AGAP [10.0-20.0 mEq/L] 10.8 mEq/L (05/08/2013 11:07:00) Creatinine Lvl [0.5-1.4 mg/dL] 0.7 mg/dL (05/08/2013:) eGFR 87 mL/min/1.73m2 1 *NA* (05/08/2013::00) BUN [7-22 mg/dL] 14 mg/dL (05/08/2013::00) Glucose Lvl [70-99 mg/dL] 100 mg/dL 2 *HI* (05/08/2013:00) Calcium Lvl [8.5-10.5 mg/dL] 8.9 mg/dL (05/08/2013::00) 1Result Comment: The eGFR is calculated using [...] from the National Kidney Disease Education Program ( NKDEP) which additionally recommends that when the eGFR is used in patients with extremes of body mass index for purposes of drug dosing, the eGFR should be mul tiplied by the estimated BMI. 2Interpretive Data: Adult reference range values reflect the clinical guidelines of the [place] [employer]. HEMATOLOGY Most recent to oldest [Reference Range]: 1 WBC [3.7-10.4 K/CMM] 5.2 K/CMM (05/08/2013::) RBC [4.20-5.40 M/CMM] 4.41 M/CMM (05/08/2013:) Hgb [12.0-16.0 g/dL] 13.3 g/dL (05/08/2013) Hct [36.0-48.0 %] 37.8 % (05/08/2013) MCV [81.0-99.0 fL] 85.7 fL (05/08/2013::) MCH [27.0-31.0 pg] 30.2 pg (05/08/2013 11:07:00) MCHC [32.0-36.0 g/dL] 35.3 g/dL (05/08/2013:07:00) RDW [11.5-14.5 %] 14.3 % (05/08/2013:07:00) Platelet [133-450 K/CMM] 149 K/CMM (05/08/2013:07:00) MPV [7.4-10.4 fL] 8.1 fL (05/08/2013:07:00) Segs [45.0-75.0 %] 58.2 % (05/08/2013:07:00) Lymphocytes [20.0-40.0 %] 24.4 % (05/08/2013::00) Monocytes [2.0-12.0 %] 16.2 % *HI* (05/08/2013:07:00) Eosinophils [0.0-4.0 %] 0.0 % (05/08/2013:07:00) Basophils [0.0-1.0 %] 1.2 % *HI* (05/08/2013:07:00) Segs-Bands # [1.5-8.1 K/CMM] 3.0 K/CMM (05/08/2013:07:00) Lymphocytes # [1.0-5.5 K/CMM] 1.3 K/CMM (05/08/2013:07:00) Monocytes # [0.0-0.8 K/CMM] 0.8 K/CMM (05/08/2013:07:00) Eosinophils # [0.0-0.5 K/CMM] 0.0 K/CMM (05/08/2013:07:00) Basophils # [0.0-0.2 K/CMM] 0.1 K/CMM (05/08/2013:07:00)
--- OUTSIDE RECORDS SUMMARY | 2018-05-14 16:59 | XMS REPORT | Summary of Care ---
Author Author [facility] Organization [facility] Address Unknown Phone Unavailable Encounter ANAY Rocha(ED) [id number] Date(s): 08/26/17 - 08/26/17 [facility] [address] [place], [place] [address]- [phone] Discharge Disposition: Home or Self Care Attending Physician: Heaven Up MD Referring Physician: David Zaldivar MD Vital Signs Most recent to 1 oldest [Reference Range]: Height 160.02 cm (08/26/17 3:33 PM) Temperature Oral 98.7 DegF [96.4-99.1 DegF] (08/26/17 3:33 PM) Blood Pressure 108/69 mmHg [90-140/60-90 mmHg] (08/26/17 3:33 PM) Peripheral Pulse 77 bpm Rate [60-100 bpm] (08/26/17 3:33 PM) Weight 69.119 kg (08/26/17 3:33 PM) Body Mass Index 26.99 m2 (08/26/17 3:33 PM) Problem List Condition Effective Dates Status Health [...] incontinence(Confirm ed) Urinary bladder Resolved disorder(Confirmed)9 Walking [id number] 10/02/13 Active 1Data migrated from [facility] on 09/14/14. 2Data migrated from [employer] [...] on 08/13/14. Originally documented as MORPHINE. Medications cyanocobalamin 1000 mcg sublingual tablet 1,000 microgram=1 tab, SL, Daily, # 90 tab, 3 Refill(s), Pharmacy: [facility] Start Date: 08/26/17 Status: Ordered ergocalciferol 50,000 intl units oral capsule 50,000 IntlUnit=1 cap, PO, qWeek, # 12 cap, 1 Refill(s), Pharmacy: [facility] Start Date: 08/26/17 Stop Date: 02/10/18 Status: Ordered lamoTRIgine 200 mg oral tablet 200 mg=1 tab, PO, BID, # 60 tab, 0 Refill(s), other Start Date: 08/26/17 Status: Ordered pantoprazole 40 mg oral enteric coated tablet 40 mg=1 tab, PO, Daily, # 30 tab, 0 Refill(s), other Start Date: 08/26/17 Status: Ordered trazodone 50 mg oral tablet 25 mg=0.5 tab, PO, Bedtime, # 45 tab, 1 Refill(s), Pharmacy: [facility] Start Date: 08/26/17 Status: Ordered Results No data available for this section Immunizations Given and Recorded Vaccine Date Status Refusal Reason influenza virus vaccine, inactivated 03/28/16 Given influenza virus vaccine, inactivated 01/25/16 Given influenza virus vaccine, inactivated 01/11/14 Given pneumococcal 23-valent vaccine 07/16/15 Given diphtheria/pertussis, acel/tetanus adult 02/09/15 Given Procedures Procedure Date Related Diagnosis Body Site Status Collection of venous blood by venipuncture 08/26/17 Completed Excision of benign tumor of breast 2002 Completed Arthroplasty of hip without cement Completed Cholecystectomy Completed Cholecystectomy Completed Hysterectomy Completed Operation Completed Replacement Completed Total hysterectomy Completed Social History Social History Type Response Alcohol Never Smoking Status Never smoker; Exposure to Tobacco Smoke None; Cigarette Smoking Last 365 Days No; Reg Smoking Cessation Counseling No entered on: 08/26/17 Assessment and Plan No data available for this section
--- OUTSIDE RECORDS SUMMARY | 2018-05-14 16:59 | XMS REPORT | Summary of Care ---
Author Author [facility] [place] Organization [facility] [place] Address Unknown Phone Unavailable Encounter ANAY Rocha(ED) [id number] Date(s): 02/28/17 - 02/28/17 [facility] [address] [place] [phone] Discharge Disposition: Home or Self Care Attending Physician: Enrique Posey MD Vital Signs No data available for [...] incontinence(Confirm ed) Urinary bladder Resolved disorder(Confirmed)9 Walking [id number] 10/02/13 Active 1Data migrated from [employer] [...]
--- OUTSIDE RECORDS SUMMARY | 2018-05-14 16:59 | XMS REPORT | Summary of Care ---
Author Author [facility] Organization [facility] Address Unknown Phone Unavailable Encounter HQ Aj(ED) [id number] Date(s): 07/15/15 - 07/21/15 [facility] [id number] [place] [address]- Discharge Disposition: Care Home Facility Attending Physician: David Zaldivar MD Admitting Physician: David Zaldivar MD Vital Signs 1 2 3 Most recent to oldest [Reference Range]: 165.1 cm (07/16/15 12:20 AM) Height 97.4 DegF (07/21/15 7:59 AM) 97.6 DegF (07/21/15 6:19 AM) 98.5 DegF (07/21/15 2:06 AM) Temperature Oral [96.4-99.1 DegF] 124/76 mmHg (07/21/15 7:59 AM) 113/64 mmHg (07/21/15 6:19 AM) 108/54 mmHg (07/21/15 2:06 AM) Blood Pressure [90-140/60-90 mmHg] 16 BRMIN (07/21/15 8:56 AM) 14 BRMIN (07/21/15 7:59 AM) 18 BRMIN (07/20/15 7:15 PM) Respiratory Rate [14-20 BRMIN] 73 bpm (07/21/15 7:59 AM) 69 bpm (07/21/15 6:19 AM) 74 bpm (07/21/15 2:06 AM) Peripheral Pulse Rate [60-100 bpm] 80 kg (07/16/15 12:20 AM) 83.636 kg (07/15/15 8:24 PM) Weight 29.35 m2 (07/16/15 12:20 AM) Body Mass Index Problem List Condition Effective Dates Status Health Status Informant Hx of Active migraines(Confirmed) History of Resolved arthroplasty of left hip(Confirmed) Multiple Active falls(Confirmed) Seizure(Confirmed) Active Urinary bladder Resolved disorder(Confirmed)1 1chronic UTI's Allergies, Adverse Reactions, Alerts Substance Reaction Severity Status morphine1 Active sulfa drugs Active 1Patient has hives Medications acetaminophen 325 mg, 1 tab, Route: PO, Drug form: TAB, Q4H, Dosing Weight 80, kg, PRN Pain Sc ore 4-6, Start date: 07/16/15 1:59:00, Duration: 30 day, Stop date: 08/15/15 1:5 8:00 Notes: Do not exceed 4 gm/day. (Same as: Tylenol) Start Date: 07/16/15 Stop Date: 07/16/15 Status: Discontinued acetaminophen 650 mg, 2 tab, Route: PO, Drug form: TAB, Q4H, Dosing Weight 80, kg, PRN Pain 1- 3/Temp > 100.4 F, Start date: 07/16/15 1:59:00, Duration: 30 day, Stop date: 08/15/15 1:58:00 Notes: Do not exceed 4 gm/day. (Same as: Tylenol) Start Date: 07/16/15 Stop Date: 07/21/15 Status: Discontinued acetaminophen (ANES) (ANES) Route: IV, Drug form: INJ, Start date: 07/17/15 10:47:00, Stop date: 07/17/15 11 :47:00 Start Date: 07/17/15 Stop Date: 07/17/15 Status: Completed acetaminophen 325 mg oral tablet 650 mg=2 tab, PO, Q4H, PRN Pain 1-3/Temp > 100.4 F, 0 Refill(s) Start Date: 07/21/15 Status: Ordered acetaminophen-hydrocodone 325 mg-10 mg oral tablet 1 tab, Route: PO, Drug Form: TAB, Dosing Weight 80, kg, Q4H, PRN Pain Score 4-6, Start date: 07/17/15 13:12:00, Duration: 30 day, Stop date: 08/16/15 13:11:00 Notes: Do not exceed 4gm/day of acetaminophen. (Same as: [place] 325/10) Start Date: 07/17/15 Stop Date: 07/21/15 Status: Discontinued acetaminophen-hydrocodone 325 mg-5 mg oral tablet 1 tab, Route: PO, Drug Form: TAB, Dosing Weight 80, kg, Q4H, PRN Pain Score 4-6, Start date: 07/17/15 13:12:00, Duration: 30 day, Stop date: 08/16/15 13:11:00 Notes: (Same as: [place] 325/5) Do not exceed 4gm/day of acetaminophen. Start Date: 07/17/15 Stop Date: 07/21/15 Status: Discontinued Al hydroxide/Mg hydroxide/simethicone 200 mg-200 mg-20 mg/5 mL oral suspension 30 ml, Route: PO, Drug Form: SUSP, Dosing Weight 80, kg, Q4H, PRN Indigestion, S tart date: 07/17/15 13:12:00, Duration: 30 day, Stop date: 08/16/15 13:11:00 Notes: (aluminum hydroxide-magnesium hyd- simethicone 527-460-35th/5ml MICHAEL) (Sa me as: Mylanta) Start Date: 07/17/15 Stop Date: 07/21/15 Status: Discontinued Aspirin Low Dose 81 mg oral tablet =1 tab, PO, Daily, # 100 tab, 3 Refill(s) Start Date: 07/21/15 Status: Ordered Ativan 1 mg, 0.5 mL, Route: IVP, Drug form: INJ, Q15Min, Dosing Weight 83.636, kg, PRN Seizure, Start date: 07/15/15 23:12:00, Duration: 2 doses or times, Stop date: L imited # of times Notes: (Same as: Ativan) Start Date: 07/15/15 Stop Date: 07/21/15 Status: Discontinued Benadryl 25 mg, 1 tab, Route: PO, Drug form: TAB, ONCE, Dosing Weight 80, kg, prior to bl ood tranfusion, Start date: 07/20/15 9:26:00, Stop date: 07/20/15 9:26:00 Start Date: 07/20/15 Stop Date: 07/20/15 Status: Completed bisacodyl 5 mg oral enteric coated tablet 5 mg=1 tab, PO, Q24H, PRN Constipation, 0 Refill(s) Start Date: 07/21/15 Status: Ordered calcium gluconate + Sodium Chloride 0.9% IV 100 mL 2 gm, 20 mL, Route: IVPB, PRN, Dosing Weight 80, kg, PRN Abnormal Lab Result, Fo r NON-ICU Patients Only., Start date: 07/16/15 2:11:00, Duration: 30 day, Stop d ate: 08/15/15 2:10:00 Notes: WASTE: F/P - Sink; E - Municipal Trash Bin Start Date: 07/16/15 Stop Date: 07/21/15 Status: Discontinued calcium gluconate + Sodium Chloride 0.9% IV 150 mL 3 gm, 30 mL, Route: IVPB, PRN, Dosing Weight 80, kg, PRN Abnormal Lab Result, Fo r NON-ICU Patients Only., Start date: 07/16/15 2:11:00, Duration: 30 day, Stop d ate: 08/15/15 2:10:00 Notes: WASTE: F/P - Sink; E - Municipal Trash Bin Start Date: 07/16/15 Stop Date: 07/21/15 Status: Discontinued ceFAZolin 2 gm, 100 mL, Route: IVPB, Drug form: INJ, ONCALL, Dosing Weight 80, kg, (Patien ts weighing < 120 kg), Start date: 07/16/15 17:00:00, Duration: 2 day, Stop date: 07/18/15 16:59:00 Notes: Same as: Ancef Start Date: 07/16/15 Stop Date: 07/18/15 Status: Discontinued ceFAZolin (ANES) (ANES) Route: IV, Drug form: INJ, Start date: 07/17/15 10:21:00, Stop date: 07/17/15 11 :21:00 Start Date: 07/17/15 Stop Date: 07/17/15 Status: Completed ceFAZolin (SCIP) 2 gm, 100 mL, Route: IVPB, Drug form: INJ, Q8H, Dosing Weight 80, kg, Start date : 07/17/15 16:00:00, Duration: 3 doses or times, Stop date: 07/18/15 8:00:00 Notes: Same as: Ancef Start Date: 07/17/15 Stop Date: 07/18/15 Status: Completed cefTRIAXone + Sodium Chloride 0.9% IV 100 mL 2 gm, Route: IVPB, [id number], Dosing Weight 80, kg, Priority: NOW, Start date: 05/31 10:31:00, Duration: 30 day, Stop date: 08/14/15 10:31:00 Notes: (Same As: Rocephin).Use with 100 mL NS and infuse over 30 min MEDICA TION WASTE Product Size: 2000 mgProduct Wasted: ___ mg Start Date: 07/16/15 Stop Date: 07/17/15 Status: Discontinued D5W 1/2NS + KCL 20mEq/L 1000ml (Premix) 1,000 mL 1,000 mL, Rate: 40 ml/hr, Infuse over: 25 hr, Route: IV, Dosing Weight 80 kg, To willis Volume: 1,000, Start date: 07/17/15 13:12:00, Duration: 30 day, Stop date: 08/16/15 13:11:00 Notes: PREMIX IV - Do Not AlterWASTE: F/P - Sink; E - Municipal Trash Bin Start Date: 07/17/15 Stop Date: 07/21/15 Status: Discontinued Dilaudid 0.5 mg, 0.5 mL, Route: IVP, Drug form: INJ, Q6H, Dosing Weight 80, kg, PRN Pain Score 6-10, Priority: STAT, Start date: 07/16/15 1:59:00, Duration: 30 day, Stop date: 08/15/15 1:58:00 Start Date: 07/16/15 Stop Date: 07/16/15 Status: Discontinued Dilaudid 0.2 mg, 0.2 mL, Route: IVP, Drug form: INJ, Q6H, Dosing Weight 80, kg, PRN Pain Score 1-5, Priority: STAT, Start date: 07/16/15 1:59:00, Duration: 30 day, Stop date: 08/15/15 1:58:00 Start Date: 07/16/15 Stop Date: 07/16/15 Status: Discontinued Dilaudid 0.2 mg, 0.2 mL, Route: IV, Drug form: INJ, Q6H, Dosing Weight 80, kg, PRN Pain S core 1-3, Start date: 07/16/15 0:40:00, Duration: 30 day, Stop date: 08/15/15 0: 39:00 Start Date: 07/16/15 Stop Date: 07/16/15 Status: Discontinued Dilaudid 0.5 mg, Route: IVP, ONCE, Dosing Weight 83.636, kg, Priority: STAT, Start date: 07/16/15 0:18:00, Stop date: 07/16/15 0:18:00 Start Date: 07/16/15 Stop Date: 07/16/15 Status: Completed Dilaudid 0.5 mg, 0.5 mL, Route: IV, Drug form: INJ, Q4H, Dosing Weight 80, kg, PRN Pain S core 6-10, Start date: 07/16/15 10:31:00, Duration: 30 day, Stop date: 08/15/15 10:30:00, breakthrough pain Start Date: 07/16/15 Stop Date: 07/17/15 Status: Discontinued diphenhydrAMINE 12.5 mg, 0.5 tab, Route: PO, Drug form: TAB, Q6H, Dosing Weight 80, kg, PRN Itch ing, Start date: 07/17/15 13:12:00, Duration: 30 day, Stop date: 08/16/15 13:11: 00 Start Date: 07/17/15 Stop Date: 07/21/15 Status: Discontinued diphenhydrAMINE 25 mg, 1 tab, Route: PO, Drug form: TAB, Bedtime, Dosing Weight 80, kg, PRN Inso mnia, Start date: 07/17/15 13:12:00, Duration: 30 day, Stop date: 08/16/15 13:11 :00 Start Date: 07/17/15 Stop Date: 07/21/15 Status: Discontinued diphenhydrAMINE 25 mg oral tablet 12.5 mg=0.5 tab, PO, Q6H, PRN Itching, 0 Refill(s) Start Date: 07/21/15 Status: Ordered docusate 100 mg, 1 cap, Route: PO, Drug form: CAP, BID, Dosing Weight 80, kg, PRN Constip ation, Start date: 07/16/15 10:35:00, Duration: 30 day, Stop date: 08/15/15 10:3 4:00 Notes: (Same as: Colace) (Do Not Crush) Start Date: 07/16/15 Stop Date: 07/21/15 Status: Discontinued docusate sodium 100 mg oral capsule 100 mg=1 cap, PO, BID, PRN Constipation, 0 Refill(s) Start Date: 07/21/15 Status: Ordered docusate sodium 100 mg oral capsule 100 mg, 1 cap, Route: PO, Drug form: CAP, BID, Dosing Weight 80, kg, Start date: 07/17/15 17:00:00, Duration: 30 day, Stop date: 08/16/15 9:00:00 Notes: (Same as: Colace) (Do Not Crush) Start Date: 07/17/15 Stop Date: 07/21/15 Status: Discontinued Dulcolax Laxative 5 mg, 1 tab, Route: PO, Drug form: ECTAB, Q24H, Dosing Weight 80, kg, PRN Consti pation, Start date: 07/17/15 13:12:00, Duration: 30 day, Stop date: 08/16/15 13: 11:00 Notes: (Same As: Dulcolax, Correctol) (Do Not Crush) "Do Not Crush" Start Date: 07/17/15 Stop Date: 07/21/15 Status: Discontinued enoxaparin 40 mg, 0.4 mL, Route: SUB-Q, Drug form: INJ, [id number], Dosing Weight 80, kg, Sta rt date: 07/16/15 3:00:00, Duration: 30 day, Stop date: 08/14/15 3:00:00 Notes: (Same as: Lovenox) Start Date: 07/16/15 Stop Date: 07/19/15 Status: Voided With Results ePHEDrine (ANES) Route: IV, Drug form: INJ, ONCE, Stop date: 07/17/15 10:57:00 Start Date: 07/17/15 Stop Date: 07/17/15 Status: Completed fentaNYL (ANES) Route: IV, Drug form: INJ, ONCE, Stop date: 07/17/15 11:07:00 Start Date: 07/17/15 Stop Date: 07/17/15 Status: Completed ferrous sulfate 325 mg, 1 tab, Route: PO, Drug form: ECTAB, BID, Dosing Weight 80, kg, Start jose e: 07/18/15 10:50:00, Duration: 30 day, Stop date: 08/17/15 9:00:00 Notes: Give with food. "Do Not Crush" Start Date: 07/18/15 Stop Date: 07/19/15 Status: Voided With Results folic acid 1 mg, 1 tab, Route: PO, Drug form: TAB, Daily, Dosing Weight 80, kg, Start date: 07/20/15 9:00:00, Duration: 30 day, Stop date: 08/18/15 9:00:00 Notes: (Same as: Folvite) Start Date: 07/20/15 Stop Date: 07/21/15 Status: Discontinued folic acid 1 mg oral tablet 1 mg=1 tab, PO, Daily, 0 Refill(s) Start Date: 07/21/15 Status: Ordered Hextend (ANES) (ANES) Route: IV, Drug Form: INJ, Start date: 07/17/15 12:00:00, Stop date: 07/17/15 13 :00:00 Start Date: 07/17/15 Stop Date: 07/17/15 Status: Completed hydromorphone 0.3 mg, 0.3 mL, Route: IVP, Drug form: INJ, Q3H, Dosing Weight 80, kg, PRN Pain Score 4-6, Start date: 07/17/15 13:12:00, Duration: 30 day, Stop date: 08/16/15 13:11:00 Start Date: 07/17/15 Stop Date: 07/21/15 Status: Discontinued hydromorphone (ANES) Route: IV, Drug form: INJ, ONCE, Stop date: 07/17/15 11:22:00 Start Date: 07/17/15 Stop Date: 07/17/15 Status: Completed Klor-Con 10 10 mEq, 1 tab, Route: PO, Drug form: ERTAB, Daily, Dosing Weight 80, kg, Start d ate: 07/17/15 9:00:00, Duration: 30 day, Stop date: 08/15/15 9:00:00 Notes: (Same as: K-Dur 10)"Do Not Crush" With food and full glass of water Start Date: 07/17/15 Stop Date: 07/21/15 Status: Discontinued Lactated Ringers Injection IV (ANES) (ANES) Route: IV, Total Volume: 1,000, Start date: 07/17/15 10:02:00, Stop date: 11:02:00 Start Date: 07/17/15 Stop Date: 07/17/15 Status: Completed lamoTRIgine 200 mg oral tablet 200 mg=1 tab, PO, Daily, # 30 tab, 1 Refill(s) Start Date: 07/16/15 Status: Ordered lamoTRIgine 200 mg oral tablet 200 mg, 2 tab, Route: PO, Drug form: TAB, Daily, Dosing Weight 80, kg, Start jose e: 07/17/15 9:00:00, Duration: 30 day, Stop date: 08/15/15 9:00:00 Notes: (Same as:LaMICtal) Start Date: 07/17/15 Stop Date: 07/21/15 Status: Discontinued lidocaine (ANES) Route: IV, Drug form: INJ, ONCE, Stop date: 07/17/15 11:12:00 Start Date: 07/17/15 Stop Date: 07/17/15 Status: Completed Maalox Max oral suspension 5 ml, PO, QID, PRN Indigestion, # 200 ml, 0 Refill(s) Start Date: 07/21/15 Stop Date: 07/31/15 Status: Ordered magnesium oxide 800 mg, 2 tab, Route: PO, Drug form: TAB, PRN, Dosing Weight 80, kg, PRN Abnorma l Lab Result, For NON-ICU Patients Only., Start date: 07/16/15 2:11:00, Duration : 30 day, Stop date: 08/15/15 2:10:00 Notes: (Same as: Mag-Ox 400)Magnesium oxide [id number] elemental magnesiumDose= ____mg magnesium oxide (___mg elemental magnesium) Start Date: 07/16/15 Stop Date: 07/21/15 Status: Discontinued magnesium sulfate 2 gm, 50 mL, Route: IVPB, Drug form: INJ, PRN, Dosing Weight 80, kg, PRN Abnorma l Lab Result, For NON-ICU Patients Only., Start date: 07/16/15 2:11:00, Duration : 30 day, Stop date: 08/15/15 2:10:00 Notes: WASTE: F/P - Sink; E - Municipal Trash Bin Start Date: 07/16/15 Stop Date: 07/21/15 Status: Discontinued magnesium sulfate 1 gm, 100 mL, Route: IVPB, Drug form: INJ, PRN, Dosing Weight 80, kg, PRN Abnorm al Lab Result, For NON-ICU Patients Only., Start date: 07/16/15 2:11:00, Duratio n: 30 day, Stop date: 08/15/15 2:10:00 Notes: WASTE: F/P - Sink; E - Municipal Trash Bin Start Date: 07/16/15 Stop Date: 07/21/15 Status: Discontinued midazolam (ANES) Route: IV, Drug form: SOLN, ONCE, Stop date: 07/17/15 11:12:00 Start Date: 07/17/15 Stop Date: 07/17/15 Status: Completed [place] 10/325 oral tablet 2 tab, Route: PO, Drug Form: TAB, Dosing Weight 80, kg, Q6H, PRN See Nurse's Not es, Start date: 07/17/15 13:12:00, Duration: 30 day, Stop date: 08/16/15 13:11:0 0 Notes: Do not exceed 4gm/day of acetaminophen. (Same as: [place] 325/10) Start Date: 07/17/15 Stop Date: 07/21/15 Status: Discontinued [place] 5/325 oral tablet 2 tab, Route: PO, Drug Form: TAB, Dosing Weight 80, kg, Q6H, PRN Pain Score 7-10 , Start date: 07/16/15 10:30:00, Duration: 30 day, Stop date: 08/15/15 10:29:00 Notes: (Same as: [place] 325/5) Do not exceed 4gm/day of acetaminophen. Start Date: 07/16/15 Stop Date: 07/21/15 Status: Discontinued [place] 5/325 oral tablet 1 tab, Route: PO, Drug Form: TAB, Dosing Weight 80, kg, Q4H, PRN Pain Score 4-6, Start date: 07/16/15 10:30:00, Duration: 30 day, Stop date: 08/15/15 10:29:00 Notes: (Same as: [place] 325/5) Do not exceed 4gm/day of acetaminophen. Start Date: 07/16/15 Stop Date: 07/17/15 Status: Discontinued norepinephrine (ANES) Route: IV, Drug form: INJ, ONCE, Stop date: 07/17/15 12:42:00 Start Date: 07/17/15 Stop Date: 07/17/15 Status: Completed Nurse Please clarify Vitamin B12 dose taken at home Nurse Please clarify Vitamin B12 dose taken at home, 1 tab, Drug form: MISC, Rou te: PO, QSHIFT, 07/16/15 16:00:00, Duration: 30 day, Stop date: 08/15/15 8:00:00 Start Date: 07/16/15 Stop Date: 07/16/15 Status: Discontinued ondansetron 4 mg, 2 mL, Route: IVP, Drug form: INJ, Q6H, Dosing Weight 80, kg, PRN Nausea & Vomiting, Start date: 07/16/15 1:59:00, Duration: 30 day, Stop date: 08/15/15 1 :58:00 Notes: (Same as: Rose) MEDICATION WASTE Product Size: 4 mgProduct Was cornell: ___ mg Start Date: 07/16/15 Stop Date: 07/17/15 Status: Discontinued ondansetron 4 mg, 2 mL, Route: IVP, Drug form: INJ, Q6H, Dosing Weight 80, kg, PRN Nausea & Vomiting, Start date: 07/16/15 10:35:00, Duration: 30 day, Stop date: 08/15/15 10:34:00 Notes: (Same as: Zofran) MEDICATION WASTE Product Size: 4 mgProduct Was cornell: ___ mg Start Date: 07/16/15 Stop Date: 07/17/15 Status: Discontinued ondansetron 4 mg, 2 mL, Route: IVP, Drug form: INJ, Q6H, Dosing Weight 80, kg, PRN Nausea & Vomiting, Start date: 07/17/15 13:12:00, Duration: 30 day, Stop date: 08/16/15 13:11:00 Notes: (Same as: Zofran) MEDICATION WASTE Product Size: 4 mgProduct Was cornell: ___ mg Start Date: 07/17/15 Stop Date: 07/21/15 Status: Discontinued ondansetron (ANES) Route: IV, Drug form: INJ, ONCE, Stop date: 07/17/15 11:12:00 Start Date: 07/17/15 Stop Date: 07/17/15 Status: Completed pantoprazole 40 mg oral enteric coated tablet 40 mg=1 tab, PO, Before Dinner, 0 Refill(s) Start Date: 07/21/15 Status: Ordered pneumococcal 23-valent vaccine 0.5 mL, Route: IM, Drug Form: INJ, Daily, Start date: 07/16/15 9:00:00, Duration : 1 doses or times, Stop date: 07/16/15 9:00:00 Notes: (Same as: Pneumovax 23) Refrigerate Start Date: 07/16/15 Stop Date: 07/16/15 Status: Completed potassium chloride 20 mEq, 1 tab, Route: PO, Drug form: ERTAB, ONCE, Dosing Weight 80, kg, Start da te: 07/17/15 10:24:00, Stop date: 07/17/15 10:24:00 Notes: (Same as: K-Dur 20)"Do Not Crush" With food and full glass of water Start Date: 07/17/15 Stop Date: 07/17/15 Status: Completed potassium chloride 20 mEq, 1 tab, Route: PO, Drug form: ERTAB, PRN, Dosing Weight 80, kg, PRN Abnor mal Lab Result, For NON-ICU Patients Only, Start date: 07/16/15 2:11:00, Duratio n: 30 day, Stop date: 08/15/15 2:10:00 Notes: (Same as: K-Dur 20)"Do Not Crush" With food and full glass of water Start Date: 07/16/15 Stop Date: 07/21/15 Status: Discontinued potassium chloride 20 mEq, 15 mL, Route: NJ, Drug form: LIQ, PRN, Dosing Weight 80, kg, PRN Abnorma l Lab Result, For NON-ICU Patients Only, Start date: 07/16/15 2:11:00, Duration: 30 day, Stop date: 08/15/15 2:10:00 Notes: (Same as: Potassium Chloride) Start Date: 07/16/15 Stop Date: 07/21/15 Status: Discontinued potassium chloride 10 mEq, 100 mL, Route: IVPB, Drug form: INJ, PRN, Dosing Weight 80, kg, PRN Abno rmal Lab Result, For NON-ICU Patients Only, Start date: 07/16/15 2:11:00, Durati on: 30 day, Stop date: 08/15/15 2:10:00 Notes: Infuse at a rate of 10 mEq/hr.(Same as: KCL) Start Date: 07/16/15 Stop Date: 07/21/15 Status: Discontinued potassium chloride 40 mEq, Route: PO, ONCE, Dosing Weight 80, kg, Start date: 07/16/15 2:40:00, Sto p date: 07/16/15 2:40:00 Start Date: 07/16/15 Stop Date: 07/16/15 Status: Discontinued potassium phosphate + Sodium Chloride 0.9% IV 250 mL 15 mmol, 5 mL, Route: IVPB, PRN, Dosing Weight 80, kg, PRN Abnormal Lab Result, For NON-ICU Patients Only., Start date: 07/16/15 2:11:00, Duration: 30 day, Stop date: 08/15/15 2:10:00 Notes: (Same as: K Phosphate.) 1 mMol phoshate has 1.47 mEq potassium Infuse o denise 4 hours Start Date: 07/16/15 Stop Date: 07/21/15 Status: Discontinued potassium phosphate + Sodium Chloride 0.9% IV 250 mL 30 mmol, 10 mL, Route: IVPB, PRN, Dosing Weight 80, kg, PRN Abnormal Lab Result, For NON-ICU Patients Only., Start date: 07/16/15 2:11:00, Duration: 30 day, Stop date: 08/15/15 2:10:00 Notes: (Same as: K Phosphate.) 1 mMol phoshate has 1.47 mEq potassium Infuse o denise 4 hours Start Date: 07/16/15 Stop Date: 07/21/15 Status: Discontinued potassium phosphate-sodium phosphate 250 mg-278 mg-164 mg oral powder 2 pkt, Route: PO, Drug Form: PDR/REC, Dosing Weight 80, kg, PRN, PRN Abnormal La b Result, For NON-ICU Patients Only, Start date: 07/16/15 2:11:00, Duration: 30 day, Stop date: 08/15/15 2:10:00 Notes: (Same as: Neutra-Phos) Each 1.25 gm pkt has 250mg phosphorous. Mix w/2.5 oz water and stir. Start Date: 07/16/15 Stop Date: 07/21/15 Status: Discontinued Procrit 40,000 unit, 2 mL, Route: SUB-Q, Drug form: INJ, Q7D, Dosing Weight 80, kg, For Oncology Patients, Start date: 07/19/15 18:22:00, Stop date: 08/16/15 17:00:00 Notes: (Same as: Procrit) epoetin nakul [id number] unit/1 ml VLWASTE: F/P - Red; E -Re d Start Date: 07/19/15 Stop Date: 07/21/15 Status: Discontinued propofol (ANES) Route: IV, Drug form: INJ, ONCE, Stop date: 07/17/15 11:12:00 Start Date: 07/17/15 Stop Date: 07/17/15 Status: Completed Protonix 40 mg, 1 tab, Route: PO, Drug form: ECTAB, Before Dinner, Dosing Weight 80, kg, Start date: 07/16/15 16:30:00, Duration: 30 day, Stop date: 08/14/15 16:30:00 Notes: Tablet should not be chewed or crushed.(Same as: Protonix) Start Date: 07/16/15 Stop Date: 07/21/15 Status: Discontinued Saline Flush 0.9% 10 ml, Route: IVP, Drug Form: INJ, Dosing Weight 80, kg, PRN, PRN Line Flush, St art date: 07/17/15 13:12:00, Duration: 30 day, Stop date: 08/16/15 13:11:00 Notes: (Same as: BD Posiflush) Start Date: 07/17/15 Stop Date: 07/21/15 Status: Discontinued Sodium Chloride 0.9% 250 ml (titrate) 250 mL 250 mL, Rate: Titrate, Dosing Weight 80, kg, Route: IV, Total Volume: 250, Start Date: 07/20/15 14:59:00, Duration: 1 day, Stop date: 07/21/15 14:58:00, Replace Every: 24 hr Start Date: 07/20/15 Stop Date: 07/21/15 Status: Completed sodium phosphate + Dextrose 5% in Water IV 250 mL 30 mmol, 10 mL, Route: IVPB, PRN, Dosing Weight 80, kg, PRN Abnormal Lab Result, For NON-ICU Patients Only., Start date: 07/16/15 2:11:00, Duration: 30 day, Stop date: 08/15/15 2:10:00 Start Date: 07/16/15 Stop Date: 07/21/15 Status: Discontinued sodium phosphate + Dextrose 5% in Water IV 250 mL 15 mmol, 5 mL, Route: IVPB, PRN, Dosing Weight 80, kg, PRN Abnormal Lab Result, For NON-ICU Patients Only., Start date: 07/16/15 2:11:00, Duration: 30 day, Stop date: 08/15/15 2:10:00 Start Date: 07/16/15 Stop Date: 07/21/15 Status: Discontinued Tylenol 650 mg, 20.3 mL, Route: PO, Drug form: LIQ, ONCE, Dosing Weight 80, kg, prior to blood transfusion, Start date: 07/20/15 9:26:00, Stop date: 07/20/15 9:26:00 Notes: Max [id number]/day (4 gm/day). (Same as: Tylenol) Start Date: 07/20/15 Stop Date: 07/20/15 Status: Completed vancomycin (ANES) (ANES) Route: IV, Drug form: INJ, Start date: 07/17/15 10:23:00, Stop date: 07/17/15 11 :23:00 Start Date: 07/17/15 Stop Date: 07/17/15 Status: Completed vancomycin (SCIP) + Sodium Chloride 0.9% IV 250 mL 1 gm, Route: IVPB, Q12H, Dosing Weight 80, kg, Time Critical Medication, Start d ate: 07/17/15 22:00:00, Duration: 1 doses or times, Stop date: 07/17/15 22:00:00 , Pharmacy to adjust dose for renal function Notes: TIME CRITICAL MEDICATION(Same As: Vancocin)Infusion rate< 1000 mg: infuse over 1 [id number] - 1500 mg: infuse over 1.5 [id number] - 2000 mg: infuse over 2 hours> 2001 mg: infuse over 2.5 hours MEDICATION WASTE Product Size: 1000 mgProduct Wasted: ___ mg Start Date: 07/17/15 Stop Date: 07/17/15 Status: Completed vancomycin + Sodium Chloride 0.9% IV 250 mL 1 gm, Route: IVPB, ONCALL, Dosing Weight 80, kg, Start date: 07/16/15 17:00:00, Duration: 2 day, Stop date: 07/18/15 16:59:00 Notes: TIME CRITICAL MEDICATION(Same As: Vancocin)Infusion rate< 1000 mg: infuse over 1 [id number] - 1500 mg: infuse over 1.5 [id number] - 2000 mg: infuse over 2 hours> 2001 mg: infuse over 2.5 hours MEDICATION WASTE Product Size: 1000 mgProduct Wasted: ___ mg Start Date: 07/16/15 Stop Date: 07/18/15 Status: Discontinued Venofer + Sodium Chloride 0.9% IV 90 mL 200 mg, 10 mL, Route: IVPB, Daily, Dosing Weight 80, kg, Start date: 07/18/15 17 :00:00, Duration: 5 doses or times, Stop date: 07/22/15 17:00:00 Notes: Each 5ml contains 100mg elemental iron. Mix with NS(Same as:Venofer)Admi nister IV only. MEDICATION WASTE Product Size: 100 mgProduct Wasted: _ __ mg Start Date: 07/18/15 Stop Date: 07/21/15 Status: Discontinued Vitamin B12 1,000 microgram, 2 tab, Route: PO, Drug form: TAB, Daily, Dosing Weight 80, kg, Start date: 07/20/15 9:00:00, Duration: 30 day, Stop date: 08/18/15 9:00:00 Notes: (Same As: Vitamin B12) Start Date: 07/20/15 Stop Date: 07/21/15 Status: Discontinued Vitamin B12 125 microgram, 1.25 tab, Route: PO, Drug form: TAB, qWeek, Dosing Weight 80, kg, Start date: 07/16/15 11:00:00, Duration: 30 day, Stop date: 08/13/15 9:00:00 Notes: (Same As: Vitamin B12) Start Date: 07/16/15 Stop Date: 07/19/15 Status: Discontinued Results BLOOD BANK RESULTS 1 2 3 Most recent to oldest [Reference Range]: O POS *Unknown* (07/20/15 10:04 AM) O POS *Unknown* (07/16/15 7:42 PM) ABO/Rh Negative (07/20/15 10:04 AM) Negative (07/16/15 7:42 PM) Antibody Scrn Product available 1 (07/20/15 9:24 AM) Product available (07/18/15 9:45 AM) RBC product 1Result Comment: 07/20/2015 11:35 [id number] notified Edgar at 07/20/2015 11:35 ELECTROLYTES 1 2 3 Most recent to oldest [Reference Range]: 140 mEq/L (07/20/15 6:50 AM) 136 mEq/L (07/19/15 3:33 AM) 136 mEq/L (07/18/15 5:22 AM) Sodium Lvl [135-145 mEq/L] 3.5 mEq/L (07/20/15 6:50 AM) 3.4 mEq/L *LOW* (07/19/15 3:33 AM) 4.1 mEq/L (07/18/15 5:22 AM) Potassium Lvl [3.5-5.1 mEq/L] 106 mEq/L (07/20/15 6:50 AM) 101 mEq/L (07/19/15 3:33 AM) 103 mEq/L (07/18/15 5:22 AM) Chloride Lvl [95-109 mEq/L] 28 mEq/L (07/20/15 6:50 AM) 27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
--- OUTSIDE RECORDS SUMMARY | 2018-05-14 16:59 | XMS REPORT | Summary of Care ---
Author Author [facility] [place] Organization [facility] [place] Address Unknown Phone Unavailable Encounter HQ Krishr_nevaeh(FIN) [id number] Date(s): 03/29/15 - 03/29/15 [facility] [place] [address] [place], [place] [address] [phone] Discharge Disposition: Home Attending Physician: Heaven Up MD Vital Signs No data available for this section Problem List Condition Effective Dates Status Health Status Informant Seizure(Confirmed) Resolved Urinary bladder Resolved disorder(Confirmed)1 1chronic UTI's Allergies, Adverse Reactions, Alerts Substance Reaction Severity Status morphine Active sulfaSALAzine Active Medications No data available for this section Results No data available for this section Immunizations Vaccine Date Refusal Reason influenza virus vaccine, inactivated 01/11/14 Procedures Procedure Date Related Diagnosis Body Site Excision of benign tumor of breast 2002 Arthroplasty of hip without cement Cholecystectomy Hysterectomy Social History Social History Type Response Smoking Status Never smoker; Exposure to Tobacco Smoke None; Cigarette Smoking Last 365 Days No; Reg Smoking Cessation Counseling No Assessment and Plan No data available for this section
--- OUTSIDE RECORDS SUMMARY | 2018-05-14 16:59 | XMS REPORT | Summary of Care ---
Author Organization Unknown Address Unknown Phone Unavailable Encounter HQ Krishr_dentonle(ED) [id number] Date(s): 09/10/13 - 09/10/13 [facility] [place] [id number] [place] [address] Discharge Disposition: Home Physician Attending: SaturdayLaney MD Reason for Visit [phone] - CONVULSIONS NEC Problem List Condition Effective Dates Status Health Status Informant Seizure(Confirmed) Resolved Allergies, Adverse Reactions, Alerts Substance Reaction Severity Status morphine Active Medications No data available for this section Medications Administered During Your Visit No data available for this section Immunizations No data available for this section Social History Social History Type Response Smoking Status Never smoker, Exposure to Tobacco Smoke None, Cigarette Smoking Last 365 Days No, Reg Smoking Cessation Counseling No
--- OUTSIDE RECORDS SUMMARY | 2018-05-14 16:59 | XMS REPORT | Summary of Care ---
Author Author [facility] Organization [facility] Address Unknown Phone Unavailable Encounter ANAY Rocha(FIN) [id number] Date(s): 05/06/18 - 05/06/18 [facility] [address] [place] [address] [phone] Attending Physician: Heaven Up MD Referring Physician: [...] incontinence(Confirm ed) Urinary bladder Resolved disorder(Confirmed)9 Walking [id number] 10/02/13 Active 1Data migrated from [employer] [...] Procedure Date Related Diagnosis Body Site Status Excision of benign tumor of breast 2002 [...]
--- OUTSIDE RECORDS SUMMARY | 2018-05-14 16:59 | XMS REPORT | Summary of Care ---
Author Author [facility] [place] Organization [facility] [place] Address Unknown Phone Unavailable Encounter ANAY Rocha(ED) [id number] Date(s): 01/08/17 - 01/08/17 [facility] Outpatient Imaging [facility] [address] [place] [address] 7 [phone] Discharge Disposition: Home or Self Care Attending [...] incontinence(Confirm ed) Urinary bladder Resolved disorder(Confirmed)9 Walking [email or web address] 10/02/13 Active 1Data migrated from [employer] [...] Adverse Reactions, Alerts Substance Reaction Severity Status ampicillin1 Active morphine2, 3 Active sulfa drugs4 Active 1Data migrated from [employer] on 08/13/14. Originally documented as AMPICILLIN. 2Patient has hives 3Data migrated from [employer] on 08/13/14. Originally documented as MORPHINE. 4Data migrated from [employer] on 11/11/14. Originally documented as SULFA. Medications No data available for this section Results No data available for this section Immunizations Given and Recorded Vaccine Date Status Refusal Reason diphtheria/pertussis, acel/tetanus adult 02/09/15 Given influenza virus vaccine, inactivated 03/28/16 Given influenza virus vaccine, inactivated 01/25/16 Given influenza virus vaccine, inactivated 01/11/14 Given pneumococcal 23-valent vaccine 07/16/15 Given Procedures Procedure Date Related Diagnosis Body [...]
--- OUTSIDE RECORDS SUMMARY | 2018-05-14 16:59 | XMS REPORT | Summary of Care ---
Author Author [facility] Address Unknown Phone Unavailable Encounter ANAY Rocha(FIN) [id number] Date(s): 07/26/17 - 07/27/17 [facility] [address] [place] [phone] Vital Signs No data available for this [...] incontinence(Confirm ed) Urinary bladder Resolved disorder(Confirmed)9 Walking [id number] 10/02/13 Active 1Data migrated from [employer] [...] Originally documented as SULFA. 2Data migrated from [facility] on 08/13/14. Originally documented as AMPICILLIN. 3Patient has hives 4Data migrated from [facility] on 08/13/14. Originally documented as MORPHINE. Medications Klor-Con M10 oral tablet, extended release 10 mEq=1 tab, PO, Daily, # 90 tab, 1 Refill(s), Pharmacy: [facility] [id number] Start Date: 07/26/17 Status: Ordered Results No data available for [...] Reg Smoking Cessation Counseling No entered on: 11/08/16 Assessment and Plan No data available for this section
--- OUTSIDE RECORDS SUMMARY | 2018-05-14 16:59 | XMS REPORT | CCD ---
Author Author Auto Generated Organization [facility] Address Unknown Phone Unavailable Care Team Providers Care Supervisor [employer] Name Role Phone KeyPilo Aristides CP Michael Menon CP Allergies, Adverse Reactions, Alerts Substance Reaction Status morphine Active Problem List Condition Effective Dates Status Seizure Resolved Medications Medication Instructions Start Date End Date Status nitrofurantoin 50 mg=1 cap, PO, Daily, 0 Refill(s) 04/29/2013 Ordered macrocrystals 50 mg oral capsule phenobarbital 32.4 =3 tab, PO, Bedtime, 0 Refill(s) 04/29/2013 Ordered mg oral tablet Vitamin B12 1000 1,000 microgram=1 mL, IM, QMon, 0 04/29/2013 Ordered mcg/mL injectable Refill(s) solution Topamax 200 mg oral 200 mg=1 tab, PO, BID, 0 Refill(s) 04/29/2013 Ordered tablet LaMICtal 200 mg oral 200 mg=1 tab, PO, BID, 0 Refill(s) 04/29/2013 Ordered tablet aspirin 81 mg 324 mg, 4 tab, Route: PO, Drug 04/29/2013 04/29/2013 Completed tablet, enteric form: ECTAB, ONCE, Dosing Weight coated 77.273, kg, Priority: STAT, Start date: 04/29/13 15:05:00, Stop date: 04/29/13 15:05:00Do not crush or chew.(Same As: Ecotrin) Vital Signs Most recent to oldest [Reference Range]: 1 2 3 Height 160.02 cm (04/29/2013 11:38:00) Temperature Oral [96.4-99.1 DegF] 99.2 DegF *HI* (04/29/2013 11:38:00) Systolic Blood Pressure [90-140 mmHg] 97 mmHg (04/29/2013 19:30:00) 144 mmHg *HI* (04/29/2013 18:41:00) 143 mmHg *HI* (04/29/2013:08:00) Diastolic Blood Pressure [60-90 mmHg] 79 mmHg (04/29/2013:30:00) 73 mmHg (04/29/2013 18:41:00) 67 mmHg (04/29/2013:08:00) Respiratory Rate [14-20 BRMIN] 17 BRMIN (04/29/2013:30:00) 16 BRMIN (04/29/2013:41:00) 18 BRMIN (04/29/2013:08:00) Peripheral Pulse Rate [60-100 bpm] 75 bpm (04/29/2013:08:00) 89 bpm (04/29/2013 11:38:00) Weight 77.273 kg (04/29/2013 11:38:00) Results CHEMISTRY Most recent to oldest [Reference Range]: 1 2 Sodium Lvl [135-145 mEq/L] 142 mEq/L (04/29/2013 12:20:00) Potassium Lvl [3.5-5.1 mEq/L] 4.0 mEq/L (04/29/2013 12:20:00) Chloride Lvl [95-109 mEq/L] 110 mEq/L *HI* (04/29/2013 12:20:00) CO2 [24-32 mEq/L] 21 mEq/L *LOW* (04/29/2013 12:20:00) AGAP [10.0-20.0 mEq/L] 15.0 mEq/L (04/29/2013 12:20:00) Creatinine Lvl [0.5-1.4 mg/dL] 0.7 mg/dL (04/29/2013 12:20:00) eGFR 87 mL/min/1.73m2 1 *NA* (04/29/2013 12:20:00) BUN [7-22 mg/dL] 9 mg/dL (04/29/2013 12:20:00) B/C Ratio [6-25] 13 (04/29/2013 12:20:00) Glucose Lvl [70-99 mg/dL] 108 mg/dL 2 *HI* (04/29/2013 12:20:00) Total Protein [6.4-8.4 g/dL] 7.3 g/dL (04/29/2013 12:20:00) Albumin Lvl [3.5-5.0 g/dL] 3.8 g/dL (04/29/2013:20:00) Globulin [2.0-4.0 g/dL] 3.5 g/dL (04/29/2013:20:00) A/G Ratio [0.7-1.6] 1.1 (04/29/2013:20:00) Calcium Lvl [8.5-10.5 mg/dL] 8.9 mg/dL (04/29/2013:20:00) ALT [0-65 unit/L] 16 unit/L (04/29/2013:20:00) AST [0-37 unit/L] 17 unit/L (04/29/2013:20:00) Alk Phos [39-136 unit/L] 118 unit/L (04/29/2013:20:00) Bili Total [0.2-1.3 mg/dL] 0.6 mg/dL (04/29/2013:20:00) Total CK [12-191 unit/L] 20 unit/L (04/29/2013 18:06:00) 20 unit/L (04/29/2013:20:00) CK MB [0.5-3.6 ng/mL] <0.5 ng/mL (04/29/2013:20:00) CK MB Index [0.0-2.5] <2.5 (04/29/2013:20:00) Troponin-I [0.00-0.40 ng/mL] <0.02 ng/mL (04/29/2013 18:06:00) <0.02 ng/mL (04/29/2013 12:20:00) 1Result Comment: The eGFR is calculated using [...] values reflect the clinical guidelines of the [place] [employer]. HEMATOLOGY Most recent to oldest [Reference Range]: 1 2 WBC [3.7-10.4 K/CMM] 4.3 K/CMM (04/29/2013 12:20:00) RBC [4.20-5.40 M/CMM] 4.36 M/CMM (04/29/2013:20:00) Hgb [12.0-16.0 g/dL] 12.9 g/dL (04/29/2013:20:00) Hct [36.0-48.0 %] 38.5 % (04/29/2013:20:00) MCV [81.0-99.0 fL] 88.2 fL (04/29/2013:20:00) MCH [27.0-31.0 pg] 29.6 pg (04/29/2013:20:00) MCHC [32.0-36.0 g/dL] 33.5 g/dL (04/29/2013:20:00) RDW [11.5-14.5 %] 14.6 % *HI* (04/29/201320:00) Platelet [133-450 K/CMM] 141 K/CMM (04/29/2013:20:00) MPV [7.4-10.4 fL] 8.5 fL (04/29/2013:20:00) Segs [45.0-75.0 %] 64.4 % (04/29/2013:20:00) Lymphocytes [20.0-40.0 %] 23.0 % (04/29/2013:20:00) Monocytes [2.0-12.0 %] 12.3 % *HI* (04/29/2013 12:20:00) Eosinophils [0.0-4.0 %] 0.0 % (04/29/2013 12:20:00) Basophils [0.0-1.0 %] 0.3 % (04/29/2013 12:20:00) Segs-Bands # [1.5-8.1 K/CMM] 2.8 K/CMM (04/29/2013 12:20:00) Lymphocytes # [1.0-5.5 K/CMM] 1.0 K/CMM (04/29/2013 12:20:00) Monocytes # [0.0-0.8 K/CMM] 0.5 K/CMM (04/29/2013 12:20:00) Eosinophils # [0.0-0.5 K/CMM] 0.0 K/CMM (04/29/2013 12:20:00) Basophils # [0.0-0.2 K/CMM] 0.0 K/CMM (04/29/2013 12:20:00) PT [12.0-14.7 seconds] 14.0 seconds (04/29/2013 12:20:00) INR [0.85-1.17] 1.09 3 (04/29/2013 12:20:00) PTT [22.9-35.8 seconds] 33.2 seconds 4 (04/29/2013 12:20:00) 3Interpretive Data: RECOMMENDED RANGES FOR PROTIME INR: 2.0-3.0 for most medical and surgical thromboembolic states. 2.5-3.5 for artificial heart valves and recurrent embolism. INR SHOULD BE USED ONLY FOR PATIENTS ON STABLE ANTICOAGULANT THERAPY. 4Interpretive Data: Heparin Therapeutic Range: 57 - 92 Seconds Procedures Procedures Date Related Diagnosis Cholecystectomy Hysterectomy
--- OUTSIDE RECORDS SUMMARY | 2018-05-14 16:59 | XMS REPORT | Summary of Care ---
Author Organization Unknown Address Unknown Phone Unavailable Encounter HQ Aj(ED) [id number] Date(s): 01/10/14 - 01/16/14 [place] [address]- [facility] Discharge Disposition: Home Physician Attending: Yodit Horton MD Physician Admitting: Yodit Horton MD Reason for Visit CONVULSION Vital Signs 1 2 3 Most recent to oldest [Reference Range]: 160.02 cm (01/10/14 10:48 AM) Height 97.9 DegF (01/16/14 7:53 AM) 98.7 DegF (01/15/14 7:08 PM) 97.4 DegF (01/15/14 7:51 AM) Temperature Oral [96.4-99.1 DegF] 128 mmHg (01/16/14 7:53 AM) 117 mmHg (01/15/14 7:08 PM) 110 mmHg (01/15/14 7:51 AM) Systolic Blood Pressure [90-140 mmHg] 73 mmHg (01/16/14 7:53 AM) 61 mmHg (01/15/14 7:08 PM) 58 mmHg *LOW* (01/15/14 7:51 AM) Diastolic Blood Pressure [60-90 mmHg] 18 BRMIN (01/16/14 7:53 AM) 18 BRMIN (01/15/14 7:08 PM) 18 BRMIN (01/15/14 7:51 AM) Respiratory Rate [14-20 BRMIN] 73 bpm (01/15/14 7:08 PM) 64 bpm (01/15/14 7:51 AM) 82 bpm (01/14/14 7:39 PM) Peripheral Pulse Rate [60-100 bpm] 79.091 kg (01/10/14 10:48 AM) Weight 30.89 m2 (01/10/14 10:48 AM) Body Mass Index Problem List Condition Effective Dates Status Health Status Informant Seizure(Confirmed) Resolved Urinary bladder Resolved disorder(Confirmed)1 1chronic UTI's Allergies, Adverse Reactions, Alerts Substance Reaction Severity Status morphine Active sulfaSALAzine Active Medications acetaminophen 500 mg, 1 tab, Route: PO, Drug form: TAB, ONCE, Dosing Weight 79.091, kg, Start date: 01/12/14 12:11:00, Stop date: 01/12/14 12:11:00 Notes: Max acetaminophen 4000 mg/day (4 gm/day). (Same as: Tylenol Extra Streng th) Start Date: 01/12/14 Stop Date: 01/12/14 Status: Completed Benadryl 50 mg, 1 cap, Route: PO, Drug form: CAP, ONCE, Dosing Weight 79.091, kg, Start d ate: 01/15/14 4:00:00, Stop date: 01/15/14 4:00:00 Notes: (Same as: Benadryl) Start Date: 01/15/14 Stop Date: 01/15/14 Status: Discontinued Cipro 250 mg, 1 tab, Route: PO, Drug form: TAB, Q12H, Start date: 01/13/14 12:58:00, D uration: 30 day, Stop date: 02/12/14 9:00:00 Notes: May interfere w/enteral feedings - Take 1 hr before or 2 hrs after antac ids, dairy pdt & minerals. On empty stomach. Start Date: 01/13/14 Stop Date: 01/16/14 Status: Discontinued Difluprednate Ophthalmic (Durezol 0.05%) Difluprednate Ophthalmic (Durezol 0.05%), 1 drop, Drug form: MISC, Route: BOTH E YES, Daily, 01/12/14 9:00:00, Duration: 30 day, Stop date: 02/10/14 9:00:00 Start Date: 01/12/14 Stop Date: 01/16/14 Status: Discontinued Durezol 0.05% ophthalmic emulsion 1 drp, BOTH EYES, Daily Start Date: 01/10/14 Status: Ordered ethanol 30 mL, Route: PO, Drug Form: LIQ, Dosing Weight 79.091, kg, ONCE, Start date: 4:00:00, Stop date: 01/15/14 4:00:00 Notes: "Call 2 hours before next dose due" Start Date: 01/15/14 Stop Date: 01/15/14 Status: Discontinued Fluzone Quadrivalent [id number] 0.5 ml, Route: IM, Drug Form: SUSP, Daily, Start date: 01/11/14 9:00:00, Duratio n: 1 doses or times, Stop date: 01/11/14 9:00:00 Notes: (Same as: Fluzone Quadrivalent) Start Date: 01/11/14 Stop Date: 01/11/14 Status: Completed heparin 5,000 unit, 1 mL, Route: SUB-Q, Drug form: INJ, Q12H, Dosing Weight 79.091, kg, Start date: 01/11/14 21:00:00, Duration: 30 day, Stop date: 02/10/14 9:00:00 Notes: porcine heparin Start Date: 01/11/14 Stop Date: 01/16/14 Status: Discontinued Klor-Con 10 10 mEq, 1 tab, Route: PO, Drug form: ERTAB, Daily, Dosing Weight 79.091, kg, Sta rt date: 01/12/14 9:00:00, Stop date: 02/10/14 9:00:00 Notes: (Same as: Klor-Con 10)"Do Not Crush" With food and full glass of water Start Date: 01/12/14 Stop Date: 01/16/14 Status: Discontinued Klor-Con 10 oral tablet, extended release 1-2 tabs, PO, Daily Start Date: 01/10/14 Status: Ordered LaMICtal 200 mg, 1 tab, Route: PO, Drug form: TAB, Q12H, Dosing Weight 79.091, kg, Start date: 01/11/14 21:00:00, Stop date: 02/10/14 9:00:00 Start Date: 01/11/14 Stop Date: 01/16/14 Status: Discontinued LaMICtal 100 mg oral tablet =300 mg, PO, Q12H, # 180 tab, 4 Refill(s), BRAND MEDICALLY NECESSARY Start Date: 01/15/14 Status: Ordered lamoTRIgine 100 mg oral tablet See Instructions, 0.5 tab PO QPM x 2 wks, then 0.5 tab Q12H x 2 wks. TAKE WITH L AMOTRIGINE 200MG pills. Special Instructions: 0.5 tab PO QPM x 2 wks, then 0.5 tab Q12H x 2 wks. TAKE WI TH LAMOTRIGINE 200MG pills. Start Date: 01/10/14 Stop Date: 01/15/14 Status: Discontinued nitrofurantoin 100 mg, 1 cap, Route: PO, Drug form: CAP, Q6H, Dosing Weight 79.091, kg, Start d ate: 01/13/14 11:17:00, Duration: 30 day, Stop date: 02/12/14 6:00:00 Notes: Not Recommended for patients with CrCl< 50 ml/minWith food (Same as:Macrodantin) Start Date: 01/13/14 Stop Date: 01/13/14 Status: Deleted nitrofurantoin macrocrystals 100 mg oral capsule (Macrodantin) 100 mg=1 cap, PO, Q12H, # 8 cap, 0 Refill(s) Start Date: 01/15/14 Status: Ordered [place] 5/325 oral tablet 0.5 tab, Route: PO, Drug Form: TAB, Dosing Weight 79.091, kg, Q6H, PRN as needed for pain, Start date: 01/11/14 14:18:00, Duration: 30 day, Stop date: 02/10/14 14:17:00 Notes: (Same as: [place] 325/5) Do not exceed 4gm/day of acetaminophen. Start Date: 01/11/14 Stop Date: 01/16/14 Status: Discontinued [place] 5/325 oral tablet 0.5 tab, PO, Q6-8H PRN for headaches Special Instructions: Q6-8H PRN for headaches Start Date: 01/10/14 Status: Ordered PHENobarbital 32.4 mg oral tablet 4 tab, Route: PO, Bedtime, Dosing Weight 79.091, kg, Start date: 01/11/14 21:00: 00, Duration: 30 day, Stop date: 02/09/14 21:00:00 Start Date: 01/11/14 Stop Date: 01/11/14 Status: Deleted PHENobarbital 32.4 mg oral tablet Route: PO, Bedtime, Dosing Weight 79.091, kg, Start date: 01/11/14 21:00:00, Dur ation: 30 day, Stop date: 02/09/14 21:00:00, Patient's Own Meds Start Date: 01/11/14 Stop Date: 01/11/14 Status: Canceled PHENObarbital 32.4mg tablet PHENObarbital 32.4mg tablet, 4 tab, Drug form: MISC, Route: PO, Bedtime, 4 21:00:00, Duration: 30 day, Stop date: 02/09/14 21:00:00 Start Date: 01/11/14 Stop Date: 01/16/14 Status: Discontinued Ultram 50 mg oral tablet 100 mg, 2 tab, Route: PO, Drug form: TAB, ONCE, Dosing Weight 79.091, kg, Start date: 01/15/14 4:00:00, Stop date: 01/15/14 4:00:00 Notes: Not to exceed 400mg/day. (Same As: Ultram) Start Date: 01/15/14 Stop Date: 01/15/14 Status: Discontinued Vitamin B12 1,000 microgram, 1 tab, Route: PO, Drug form: TAB, qWeek, Dosing Weight 79.091, kg, Start date: 01/11/14 15:00:00, Duration: 30 day, Stop date: 02/08/14 9:00:00 Notes: (Same As: Vitamin B-12) Start Date: 01/11/14 Stop Date: 01/13/14 Status: Discontinued Vitamin B12 1,000 microgram, 1 tab, Route: PO, Drug form: TAB, qWeek, Dosing Weight 79.091, kg, Start date: 01/13/14 14:00:00, Duration: 30 day, Stop date: 02/10/14 9:00:00 Notes: (Same As: Vitamin B-12) Start Date: 01/13/14 Stop Date: 01/16/14 Status: Discontinued Vitamin B12 OTC 1 tablet, PO, qWeek, WEDNESDAYS Special Instructions: WEDNESDAYS Start Date: 01/10/14 Status: Ordered Results ELECTROLYTES Most recent to 1 oldest [Reference Range]: Sodium Lvl [135-145 140 mEq/L mEq/L] (01/10/14 12:24 PM) Potassium Lvl 3.4 mEq/L [3.5-5.1 mEq/L] *LOW* (01/10/14 12:24 PM) Chloride Lvl [95-109 108 mEq/L mEq/L] (01/10/14 12:24 PM) CO2 [24-32 mEq/L] 25 mEq/L (01/10/14 12:24 PM) AGAP [10.0-20.0 10.4 mEq/L mEq/L] (01/10/14 12:24 PM) CHEM PANEL Most recent to 1 oldest [Reference Range]: Creatinine Lvl 0.8 mg/dL [0.5-1.4 mg/dL] (01/10/14 12:24 PM) eGFR 74 mL/min/1.73m2 1 *NA* (01/10/14 12:24 PM) BUN [7-22 mg/dL] 15 mg/dL (01/10/14 12:24 PM) Glucose Lvl [70-99 94 mg/dL 2 mg/dL] (01/10/14 12:24 PM) Total Protein 6.7 g/dL [6.4-8.4 g/dL] (01/10/14 12:24 PM) Albumin Lvl [3.5-5.0 3.7 g/dL g/dL] (01/10/14 12:24 PM) Globulin [2.0-4.0 3.0 g/dL g/dL] (01/10/14 12:24 PM) A/G Ratio [0.7-1.6] 1.2 (01/10/14 12:24 PM) Calcium Lvl 9.1 mg/dL [8.5-10.5 mg/dL] (01/10/14 12:24 PM) ALT [0-65 unit/L] 16 unit/L (01/10/14 12:24 PM) AST [0-37 unit/L] 7 unit/L (01/10/14 12:24 PM) Alk Phos [39-136 119 unit/L unit/L] (01/10/14 12:24 PM) Bili Total [0.2-1.3 0.9 mg/dL mg/dL] (01/10/14 12:24 PM) Bili Direct [0.0-0.3 0.2 mg/dL mg/dL] (01/10/14 12:24 PM) Bili Indirect 0.7 mg/dL [0.0-1.0 mg/dL] (01/10/14 12:24 PM) 1Result Comment: The eGFR is calculated using [...] values reflect the clinical guidelines of the [place] [employer]. TOXICOLOGY Most recent to 1 oldest [Reference Range]: Lamotrigine Lvl 6.5 microgram/mL 3 [4.0-18.0 *NA* microgram/mL] (01/10/14 12:24 PM) Phenobarb Lvl 19.8 ug/ml [15.0-40.0 ug/ml] (01/10/14 12:24 PM) Topiramate Lvl 7.5 microgram/mL 4 *NA* (01/10/14 12:24 PM) 3Result Comment: Test Performed at: [facility] [place], [address] [place] [address] M Lise Saha MD, FCAP 4Result Comment: THERAPEUTIC RANGE for Topiramate: Dose (mg) Peak (mcg/mL) Trough (mcg/mL) 100 6.5-9.2 4.5-6.6 200 12.0-16.0 8.0-12.0 400 20.0-30.0 14.0-20.0 Test Performed at: [facility] [place], [address] [place] [address] M Lise Saha MD, FCAP URINE AND STOOL Most recent to 1 oldest [Reference Range]: UA Turbidity [Clear] Clear (01/12/14 2:54 PM) UA Color [Yellow] Yellow *NA* (01/12/14 2:54 PM) UA pH [5.0-8.0] 5.0 (01/12/14 2:54 PM) UA Spec Grav 1.012 [<=1.030] (01/12/14 2:54 PM) UA Glucose [Negative Negative mg/dL mg/dL] *NA* (01/12/14 2:54 PM) UA Blood [Negative] Negative (01/12/14 2:54 PM) UA Ketones [Negative Negative mg/dL mg/dL] *NA* (01/12/14 2:54 PM) UA Protein [Negative Negative mg/dL mg/dL] (01/12/14 2:54 PM) UA Urobilinogen <=1.0 mg/dL [0.1-1.0 mg/dL] *NA* (01/12/14 2:54 PM) UA Bili [Negative] Negative *NA* (01/12/14 2:54 PM) UA Leuk Est Moderate [Negative] *ABN* (01/12/14 2:54 PM) UA Nitrite Negative [Negative] (01/12/14 2:54 PM) UA WBC [0-5 /HPF] 10 /HPF *HI* (01/12/14 2:54 PM) UA RBC [0-2 /HPF] 1 /HPF (01/12/14 2:54 PM) UA Bacteria [None Moderate /HPF Seen /HPF] *ABN* (01/12/14 2:54 PM) UA Sq Epi [Few /LPF] Many /LPF *ABN* (01/12/14 2:54 PM) UA Mucus [None Seen Few /LPF /LPF] *NA* (01/12/14 2:54 PM) HEMATOLOGY Most recent to 1 oldest [Reference Range]: WBC [3.7-10.4 K/CMM] 4.1 K/CMM (01/10/14 12:24 PM) RBC [4.20-5.40 4.23 M/CMM M/CMM] (01/10/14 12:24 PM) Hgb [12.0-16.0 g/dL] 12.6 g/dL (01/10/14 12:24 PM) Hct [36.0-48.0 %] 36.1 % (01/10/14 12:24 PM) MCV [80.0-98.0 fL] 85.3 fL (01/10/14 12:24 PM) MCH [27.0-31.0 pg] 29.8 pg (01/10/14 12:24 PM) MCHC [32.0-36.0 35.0 g/dL g/dL] (01/10/14 12:24 PM) RDW [11.5-14.5 %] 14.7 % *HI* (01/10/14 12:24 PM) Platelet [133-450 121 K/CMM K/CMM] *LOW* (01/10/14 12:24 PM) MPV [7.4-10.4 fL] 8.9 fL (01/10/14 12:24 PM) Segs [45.0-75.0 %] 51.9 % (01/10/14 12:24 PM) Lymphocytes 30.8 % [20.0-40.0 %] (01/10/14 12:24 PM) Monocytes [2.0-12.0 16.9 % %] *HI* (01/10/14 12:24 PM) Basophils [0.0-1.0 0.4 % %] (01/10/14 12:24 PM) Segs-Bands # 2.1 K/CMM [1.5-8.1 K/CMM] (01/10/14 12:24 PM) Lymphocytes # 1.2 K/CMM [1.0-5.5 K/CMM] (01/10/14 12:24 PM) Monocytes # [0.0-0.8 0.7 K/CMM K/CMM] (01/10/14 12:24 PM) PTT [22.9-35.8 36.5 seconds 5 seconds] *HI* (01/11/14 2:46 PM) 5Interpretive Data: Heparin Therapeutic Range: 57 - 92 Seconds Medications Administered During Your Visit No data available for this section Immunizations Vaccine Date Refusal Reason influenza virus vaccine, inactivated 01/11/14 Procedures Procedure Type Body Site Date of Procedure Related Diagnosis 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 Event lasted 42 seconds. 0046: Pt was noted with fidgeting, failed word remembrance but was able to identify object and followed commands, oriented. event lasted 37 secs. No EEG change with above episodes. Vitals: VitalsTmp(F)Tmp(C)[id number] 01/14 19:[id number]/61---[id number]------ 01/14 08:0197.436.62mugf835/58---[id number]--------- 01/13 20:3597.636.92ktli35/54---7817--------- 01/13 08:0897.336.13kpnp06/57---[id number]------ 24 Hr Tmax: 98.6F (37.00c) at 01/14 19:39Vital Signs are the last 5 in the past 48 hours. 24 Hr Tmin: 97.4F (36.33c) at 01/14 08:01Weights are the last 5 in 60 days, plus initial. Physical Examination: Higher Function: AAO*3 Speech: fluent and naming intact, decreased concentration, impaired repeition and three word recall, tangential speech Cranial Nerves: PERRLA, IOL placement EOMi, bilateral facial symmetry, normal facial sensation and masseter bulk, tongue midline on protusion trapezius and sternocleidomastoid muscle strength intact Motor: -Tone: Normal -Power: equal and symmetric throughout, majority limited by cooperation, pain Sensory: -Intact grossly to touch and temperature Cerebellar signs: dysmetria noted on R FNT, deferred lower extremity Gait: wheelchair bound Medications: Scheduled Meds (7): 01/13/14 ciprofloxacin (Cipro) 250 mg PO Q12H 01/13/14 cyanocobalamin (Vitamin B12) 1,000 microgram PO qWeek 01/11/14 heparin 5,000 unit SUB-Q Q12H 01/11/14 lamoTRIgine (LaMICtal) 200 mg PO Q12H 01/12/14 non-formulary (Difluprednate Ophthalmic (Durezol 0.05%)) BOTH EYES Daily 01/11/14 non-formulary (PHENObarbital 32.4mg tablet) 4 tab PO Bedtime 01/12/14 potassium chloride (Klor-Con 10) 10 mEq PO Daily Unscheduled Meds: None PRN Meds (1): 01/11/14 acetaminophen-hydrocodone ([place] 5/325 oral tablet) 0.5 tab PO Q6H One Time Meds: None Continuous Infusions: None Labs: Urine Culture - 50,000 - 100,000 CFU/mL Escherichia coli Diagnostic Evaluation: MRI Brain w/o contrast 09/10/2013: 1. No acute intracranial hemorrhage, acute ischemia, or mass. 2. Stable mild to moderate cerebral atrophy. Minimal microvascular ischemia versus white matter aging process. cvEEG: iiEE01/11/2014ackground 9 Hz with well-organized background, assymetric k complexes during sleep, spike in anterior R temporal area iiEE01/12/2014: background of 10 Hz iiEE01/14/14: intermittent rhythmic delta, some sharps Assessment & Plan: is a 73YO woman with PMH significant for migraines, urinary incontinence and seizure disorder admitted to EMU for further characterization of LOC episodes and medication management. No seizure episodes have been recorded thus far. Beginning to see some abnormal activity on EEG. - Continue vEEG and monitor for seizure episodes - AEDs: Hold Topamax 200 mg BID Continue reduced Phenobarbital dose of 32.4 mg to 4 tabs HS Continue Lamictal 200 mg AM and 300 mg HS - Treat UTI: ciprofloxacin 250mg PO BID - Psychiatry evaluation: patient with anxiety, would benefit from outpatient counseling services. - Neuropsychiatric test results pending - testing completed 01/13/14. - DVT prophylaxis: heparin 5000 sq BID - Pain: Tylenol and [place] PRN Disposition - After completion of EMU evaluation, to follow-up with Dr. Petersen as an outpatient. Will increase lamictal to 300mg PO BID on discharge Discharge home with nitrofurantoin 100mg PO BID x 4 additional days. Patient seen and discussed with Dr. Horton. Keiko Taylor PGY3 Pediatric Neurology
--- OUTSIDE RECORDS SUMMARY | 2018-05-14 17:00 | XMS REPORT | Summary of Care ---
Author Author [facility] Organization [facility] Address Unknown Phone Unavailable Encounter ANAY Rocha(ED) [id number] Date(s): 01/23/16 - 01/23/16 [facility] [address] [place] [address]- Discharge Diagnosis: Acute head injury Discharge Disposition: Home or Self Care Attending Physician: Rafael Davis DO Vital Signs Most recent to 1 2 oldest [Reference Range]: Height 165.1 cm (01/23/16 1:49 PM) Temperature Oral 98.2 DegF 98.2 DegF [96.4-99.1 DegF] (01/23/16 5:10 PM) (01/23/16 1:49 PM) Blood Pressure 121/50 mmHg 128/55 mmHg [90-140/60-90 mmHg] (01/23/16 5:10 PM) (01/23/16 1:49 PM) Respiratory Rate 16 BRMIN 18 BRMIN [14-20 BRMIN] (01/23/16 5:10 PM) (01/23/16 1:49 PM) Peripheral Pulse 69 bpm 76 bpm Rate [60-100 bpm] (01/23/16 5:10 PM) (01/23/16 1:49 PM) Weight 84.091 kg (01/23/16 1:49 PM) Body Mass Index 30.85 m2 (01/23/16 1:49 PM) Problem List Condition Effective Dates Status Health Status Informant Hx of Active migraines(Confirmed) History of Resolved arthroplasty of left hip(Confirmed) Multiple Active falls(Confirmed) Seizure(Confirmed) Active Urinary bladder Resolved disorder(Confirmed)1 1chronic UTI's Allergies, Adverse Reactions, Alerts Substance Reaction Severity Status morphine1 Active sulfa drugs Active 1Patient has hives Medications No data available for this section Results No data available for this section Immunizations Given and Recorded Vaccine Date Status Refusal Reason influenza virus vaccine, inactivated 01/11/14 Given pneumococcal [...]
[2018-05-14] MEDS ORDERED: HYDROCODONE/APAP 5MG-325MG TAB PO ONE (17:15)
--- NOTE | 2018-05-14 18:30 | Diagnostic Imaging Report ---
EXAM: KNEE LEFT THREE VIEWS DATE: 05/14/2018 5:07 PM INDICATION: Fall/pain COMPARISON: None FINDINGS: Significant demineralization. Lateral femoral plate and screws with posttraumatic deformity distal femur. Moderate degenerative changes of the knee. Suboptimal positioning limits evaluation. No definite acute fracture. IMPRESSION: Posttraumatic and postsurgical changes of the knee with no definite acute finding. Signed by: Dr. Sky Bauman MD on 05/14/2018 6:27 PM
--- NOTE | 2018-05-14 18:31 | Diagnostic Imaging Report ---
EXAM: FEMUR ONE VIEW LEFT DATE: 05/14/2018 5:07 PM INDICATION: Pain/fall COMPARISON: None FINDINGS: Left hip prosthesis and long lateral femoral plate and screws with cerclage wire. No definite hardware complication. Healed deformity distal femur. Bones demineralized. No definite acute fracture. IMPRESSION: Posttraumatic/postsurgical changes with no definite acute abnormality. Signed by: Dr. Sky Bauman MD on 05/14/2018 6:28 PM
--- NOTE | 2018-05-14 18:32 | Diagnostic Imaging Report ---
EXAM: HIPS BILAT 3-4VWS (+/- PELVIS) DATE: 05/14/2018 5:07 PM INDICATION: Pain/fall COMPARISON: None FINDINGS: Left hip arthroplasty changes. Moderate right hip degenerative changes. Bones demineralized. No definite acute fracture. IMPRESSION: Within limitations of demineralization and chronic changes, no definite acute abnormality. Signed by: Dr. Sky Bauman MD on 05/14/2018 6:29 PM
--- NOTE | 2018-05-14 18:33 | Diagnostic Imaging Report ---
EXAM: SP LUMBAR, COMPLETE MIN 4VW DATE: 05/14/2018 5:07 PM INDICATION: Fall/pain COMPARISON: None FINDINGS: Osseous demineralization limits evaluation. Vertebral heights and alignment grossly unremarkable. Mild endplate and moderate facet degenerative changes. Oblique views limited. IMPRESSION: Demineralization and degenerative change limits evaluation. No definite acute finding. Signed by: Dr. Sky Bauman MD on 05/14/2018 6:30 PM
== END 2018-05-14 21:11 | disposition home or self-care (01) ==
LOC: ER 16:53
DX: M54.5 Low back pain (principal); M25.552 Pain in left hip; M79.652 Pain in left thigh; W01.0XXA Fall on same level from slipping, tripping and stumbling without subsequent striking against object, initial encounter; Y92.008 Other place in unspecified non-institutional (private) residence as the place of occurrence of the external cause; Z96.642 Presence of left artificial hip joint; Z85.038 Personal history of other malignant neoplasm of large intestine
CPT/HCPCS: 72110; 73522; 99284

== ENCOUNTER 2020-08-16 20:38 | Emergency (ER) | payer MEDICARE, OTHER ==
[~2020-08-16] VITALS: Ht 157.5 cm; Wt 73.9 kg
[2020-08-16 22:29] LABS: BASOPHILS % 0.6 % (0.0-1.0); EOSINOPHILS % 0.4 % (0.0-6.0); HEMATOCRIT 36.3 % (34.2-44.1); HEMOGLOBIN 11.7 g/dL (12.0-16.0); LYMPHOCYTES # (AUTO) 0.8 (1.0-3.2); LYMPHOCYTES % 15.7 % (18.0-39.1); MEAN CORPUSCULAR HEMOGLOBIN 27.4 pg (28-32); MEAN CORPUSCULAR HGB CONC 32.2 g/dL (31-35); MONOCYTES # (AUTO) 0.9 (0.2-0.8); MONOCYTES % 16.7 % (4.4-11.3); NEUTROPHILS # (AUTO) 3.4 (2.1-6.9); PLATELET COUNT 184 x10e3/uL (140-360); RED BLOOD COUNT 4.27 x10e6/uL (3.6-5.1); RED CELL DISTRIBUTION WIDTH 14.5 % (11.7-14.4)
[2020-08-16 22:35] LABS: CLARITY,URINE SL CLOUDY (CLEAR); COLOR,URINE AMBER (YELLOW); KETONES,URINE 1+ (NEGATIVE); LEUKOCYTE ESTERASE ,URINE NEGATIVE (NEGATIVE); NITRITE,URINE NEGATIVE (NEGATIVE); PROTEIN,URINE DIPSTICK 1+ (NEGATIVE); URINE UROBILINOGEN >=8 mg/dL (0.2 - 1)
[2020-08-16 22:41] LABS: BACTERIA,URINE FEW /HPF; EPITHELIAL CELLS,URINE FEW /LPF; MUCUS,URINE MODERATE (RARE); RBC,URINE 0-5 /HPF (0-5); WBC,URINE (MAN) 0-5 /HPF (0-5)
[2020-08-16 22:49] LABS: ALANINE AMINOTRANSFERASE 7 IU/L (0-55); ALBUMIN 3.6 g/dL (3.5-5.0); ALBUMIN/GLOBULIN RATIO 0.9 (0.8-2.0); ALKALINE PHOSPHATASE 77 IU/L (40-150); ANION GAP 18.9 mmol/L (8-16); BLOOD UREA NITROGEN 15 mg/dL (7-26); BUN/CREATININE RATIO 21 (6-25); CALCIUM 9.3 mg/dL (8.4-10.2); CARBON DIOXIDE 27 mmol/L (22-29); CHLORIDE 99 mmol/L (98-107); CREATINE KINASE 25 IU/L (29-168); CREATININE, SERUM 0.71 mg/dL (0.57-1.11); EST GLOMERULAR FILTRATION RATE > 60 ML/MIN (60-); GLUCOSE 113 mg/dL (74-118); SODIUM 142 mmol/L (136-145)
[2020-08-16 22:50] LABS: POTASSIUM 2.9 mmol/L (3.5-5.1)
[2020-08-16] MEDS ORDERED: IOPAMIDOL 370 MG/ML 200 ML INFUS..BTL INJ ONE (23:15)
[2020-08-16] MEDS ORDERED: SODIUM CHLORIDE 0.9% 50ML 50 ML ONE (23:15)
[2020-08-16] MEDS ORDERED: POTASSIUM CHLORIDE 20 MEQ TAB CR PO STA (23:31)
[2020-08-17] MEDS ORDERED: PANTOPRAZOLE 40 MG 10ML VIAL IV STA (00:05)
[2020-08-17] MEDS ORDERED: MAGNESIUM/ALUMINUM/SIMETHICONE 30 ML UDC PO ONE (00:15)
[2020-08-17] MEDS ORDERED: BELLADONNA ALK/PHENOBARBITAL 5 ML UDC PO ONE (00:15)
[2020-08-17] MEDS ORDERED: DONNATAL/LIDOCAINE/MAALOX 30 ML SUSP PO SCH (00:15)
[2020-08-17] MEDS ORDERED: LIDOCAINE VISC 2% SOLN 15 ML UDC PO ONE (00:15)
[2020-08-17] MEDS ORDERED: POTASSIUM CHLORIDE 20 MEQ TAB CR PO STA ×2 (02:07→05:08)
[2020-08-17 02:54] LABS: ANION GAP 14.8 mmol/L (8-16); BLOOD UREA NITROGEN 14 mg/dL (7-26); BUN/CREATININE RATIO 22 (6-25); CALCIUM 8.5 mg/dL (8.4-10.2); CARBON DIOXIDE 27 mmol/L (22-29); CHLORIDE 100 mmol/L (98-107); CREATININE, SERUM 0.64 mg/dL (0.57-1.11); EST GLOMERULAR FILTRATION RATE > 60 ML/MIN (60-); GLUCOSE 116 mg/dL (74-118); SODIUM 139 mmol/L (136-145)
[2020-08-17 02:56] LABS: POTASSIUM 2.8 mmol/L (3.5-5.1)
[2020-08-17] MEDS ORDERED: ONDANSETRON HCL INJ 2MG/ML 2ML 2 MG/ML VIAL IV PRN (04:15)
[2020-08-17] MEDS ORDERED: ONDANSETRON HCL INJ 2MG/ML 2ML 2 MG/ML VIAL ONE (04:20)
[2020-08-17] MEDS ORDERED: POTASSIUM CHLORIDE 10MEQ/100ML 100 ML IV ONE (05:15)
[2020-08-17] MEDS ORDERED: KCL 20 MEQ PACKET/ ORAL SOLN ONE (05:16)
[2020-08-17 08:34] LABS: ANION GAP 15.4 mmol/L (8-16); BLOOD UREA NITROGEN 13 mg/dL (7-26); BUN/CREATININE RATIO 21 (6-25); CALCIUM 8.3 mg/dL (8.4-10.2); CARBON DIOXIDE 28 mmol/L (22-29); CHLORIDE 102 mmol/L (98-107); CREATININE, SERUM 0.63 mg/dL (0.57-1.11); EST GLOMERULAR FILTRATION RATE > 60 ML/MIN (60-); GLUCOSE 103 mg/dL (74-118); SODIUM 142 mmol/L (136-145)
[2020-08-17 08:36] LABS: POTASSIUM 3.4 mmol/L (3.5-5.1)
== END 2020-08-17 10:09 | disposition home or self-care (01) ==
LOC: ER 22:07
DX: R10.13 Epigastric pain (principal); K29.80 Duodenitis without bleeding; E87.6 Hypokalemia; Z20.822 Contact with and (suspected) exposure to COVID-19; Z85.038 Personal history of other malignant neoplasm of large intestine; Z96.642 Presence of left artificial hip joint
CPT/HCPCS: 36415; 71045; 74177; 80048; 80053; 81001; 82550; 82553; 83735; 84484; 85025; 99284; C9113; J2405; J3480; Q9967; U0002

== ENCOUNTER 2020-08-28 22:24 | Emergency (ER) | payer MEDICARE, OTHER ==
[~2020-08-28] VITALS: Ht 157.5 cm; Wt 68.5 kg
[2020-08-28] MEDS ORDERED: ASPIRIN 81 MG CHEW TAB PO ONE (23:00)
[2020-08-29 01:16] LABS: BASOPHILS % 0.4 % (0.0-1.0); HEMATOCRIT 38.7 % (34.2-44.1); HEMOGLOBIN 12.3 g/dL (12.0-16.0); LYMPHOCYTES # (AUTO) 0.6 (1.0-3.2); LYMPHOCYTES % 10.9 % (18.0-39.1); MEAN CORPUSCULAR HEMOGLOBIN 26.6 pg (28-32); MEAN CORPUSCULAR HGB CONC 31.8 g/dL (31-35); MEAN CORPUSCULAR VOLUME 83.8 fL (81-99); MONOCYTES # (AUTO) 0.6 (0.2-0.8); MONOCYTES % 11.3 % (4.4-11.3); NEUTROPHILS # (AUTO) 4.4 (2.1-6.9); NEUTROPHILS % 76.9 % (38.7-80.0); PLATELET COUNT 150 x10e3/uL (140-360); RED BLOOD COUNT 4.62 x10e6/uL (3.6-5.1)
[2020-08-29 01:38] LABS: ALANINE AMINOTRANSFERASE 6 IU/L (0-55); ALBUMIN/GLOBULIN RATIO 1.3 (0.8-2.0); ALKALINE PHOSPHATASE 91 IU/L (40-150); ANION GAP 16.5 mmol/L (8-16); BLOOD UREA NITROGEN 10 mg/dL (7-26); BUN/CREATININE RATIO 14 (6-25); CALCIUM 9.2 mg/dL (8.4-10.2); CARBON DIOXIDE 28 mmol/L (22-29); CHLORIDE 98 mmol/L (98-107); CREATINE KINASE 22 IU/L (29-168); CREATININE, SERUM 0.73 mg/dL (0.57-1.11); EST GLOMERULAR FILTRATION RATE > 60 ML/MIN (60-); GLUCOSE 124 mg/dL (74-118); POTASSIUM 3.5 mmol/L (3.5-5.1); SODIUM 139 mmol/L (136-145)
[2020-08-29] MEDS ORDERED: SODIUM CHLORIDE 0.9% 50ML 50 ML ONE (02:43)
[2020-08-29] MEDS ORDERED: IOPAMIDOL 370 MG/ML 200 ML INFUS..BTL INJ ONE (02:44)
[2020-08-29] MEDS ORDERED: MAALOX MAXIMUM355 ML PO ×2 (04:41→05:05)
[2020-08-29] MEDS ORDERED: PANTOPRAZOLE SO40 MG PO ×2 (04:41→05:05)
[2020-08-29] MEDS ORDERED: FAMOTIDINE20 MG PO ×2 (04:41→05:05)
[2020-08-29 05:01] VITALS: BP 129/47
== END 2020-08-29 05:18 | disposition home or self-care (01) ==
LOC: ER 23:00
DX: R10.13 Epigastric pain (principal); R11.2 Nausea with vomiting, unspecified; K29.80 Duodenitis without bleeding; G40.909 Epilepsy, unspecified, not intractable, without status epilepticus; K21.9 Gastro-esophageal reflux disease without esophagitis; Z85.038 Personal history of other malignant neoplasm of large intestine; Z96.642 Presence of left artificial hip joint
CPT/HCPCS: 36415; 71045; 74177; 80053; 82550; 82553; 83690; 84484; 85025; 99284; Q9967

== ENCOUNTER 2020-09-01 19:33 | Emergency (ER) | payer MEDICARE, OTHER ==
[~2020-09-01] VITALS: Ht 157.5 cm; Wt 68.5 kg
[~2020-09-01 19:33] MED LIST changes: +FAMOTIDINE20 MG PO; +MAALOX MAXIMUM355 ML PO
[2020-09-01 20:49] LABS: ANION GAP 17.1 mmol/L (8-16); BLOOD UREA NITROGEN 11 mg/dL (7-26); BUN/CREATININE RATIO 14 (6-25); CALCIUM 9.4 mg/dL (8.4-10.2); CARBON DIOXIDE 30 mmol/L (22-29); CHLORIDE 95 mmol/L (98-107); EST GLOMERULAR FILTRATION RATE > 60 ML/MIN (60-); GLUCOSE 122 mg/dL (74-118); POTASSIUM 3.1 mmol/L (3.5-5.1); SODIUM 139 mmol/L (136-145)
[2020-09-01] MEDS ORDERED: KCL 20 MEQ PACKET/ ORAL SOLN ONE (21:13)
[2020-09-01] MEDS ORDERED: POTASSIUM CHLORIDE 20MEQ/15ML UDC PO ONE (21:15)
== END 2020-09-01 22:00 | disposition home or self-care (01) ==
LOC: ER 21:42
DX: E87.6 Hypokalemia (principal); K21.9 Gastro-esophageal reflux disease without esophagitis; Z85.038 Personal history of other malignant neoplasm of large intestine; Z96.642 Presence of left artificial hip joint
CPT/HCPCS: 36415; 80048; 99283

== ENCOUNTER 2020-09-03 19:29 | Inpatient (IN) | payer MEDICARE, OTHER ==
[~2020-09-03] VITALS: Ht 154.9 cm; Wt 66.4 kg
[2020-09-03] MEDS ORDERED: SODIUM CHLORIDE 0.9% 1000ML 1,000 ML IV STA (19:52)
[2020-09-03] MEDS ORDERED: CIPROFLOXACIN 400 MG/D5W 200ML 200 ML IV STA (19:52)
[2020-09-03] MEDS ORDERED: ONDANSETRON HCL INJ 2MG/ML 2ML 2 MG/ML VIAL IV STA (19:52)
[2020-09-03] MEDS ORDERED: METRONIDAZOLE 500MG/NS 100ML 100 ML IV STA (19:52)
[2020-09-03 20:29] LABS: BASOPHILS % 0.3 % (0.0-1.0); EOSINOPHILS # (AUTO) 0.2 (0.0-0.4); EOSINOPHILS % 2.7 % (0.0-6.0); HEMATOCRIT 41.6 % (34.2-44.1); HEMOGLOBIN 13.3 g/dL (12.0-16.0); LYMPHOCYTES # (AUTO) 0.6 (1.0-3.2); LYMPHOCYTES % 9.6 % (18.0-39.1); MEAN CORPUSCULAR HEMOGLOBIN 26.9 pg (28-32); MEAN CORPUSCULAR VOLUME 84.2 fL (81-99); MONOCYTES # (AUTO) 1.2 (0.2-0.8); MONOCYTES % 18.7 % (4.4-11.3); NEUTROPHILS # (AUTO) 4.3 (2.1-6.9); NEUTROPHILS % 68.1 % (38.7-80.0); PLATELET COUNT 138 x10e3/uL (140-360); RED BLOOD COUNT 4.94 x10e6/uL (3.6-5.1); RED CELL DISTRIBUTION WIDTH 15.4 % (11.7-14.4)
[2020-09-03 20:52] LABS: ALANINE AMINOTRANSFERASE 6 IU/L (0-55); ALBUMIN 4.2 g/dL (3.5-5.0); ALBUMIN/GLOBULIN RATIO 1.2 (0.8-2.0); ALKALINE PHOSPHATASE 70 IU/L (40-150); ANION GAP 20.1 mmol/L (8-16); BLOOD UREA NITROGEN 13 mg/dL (7-26); BUN/CREATININE RATIO 19 (6-25); CALCIUM 9.6 mg/dL (8.4-10.2); CARBON DIOXIDE 26 mmol/L (22-29); CHLORIDE 94 mmol/L (98-107); CREATINE KINASE 21 IU/L (29-168); EST GLOMERULAR FILTRATION RATE > 60 ML/MIN (60-); GLUCOSE 109 mg/dL (74-118); POTASSIUM 3.1 mmol/L (3.5-5.1); SODIUM 137 mmol/L (136-145)
[2020-09-03] MEDS ORDERED: POTASSIUM CHLORIDE 20 MEQ TAB CR PO STA (21:23)
[2020-09-03] MEDS ORDERED: PANTOPRAZOLE 40 MG 10ML VIAL IV STA (21:26)
[2020-09-03] MEDS ORDERED: FAMOTIDINE 20 MG/2 ML VIAL IV STA (21:26)
[2020-09-03] MEDS ORDERED: DONNATAL/LIDOCAINE/MAALOX 30 ML SUSP PO SCH (21:30)
[2020-09-03] MEDS ORDERED: BELLADONNA ALK/PHENOBARBITAL 5 ML UDC PO ONE (21:45)
[2020-09-03] MEDS ORDERED: LIDOCAINE VISC 2% SOLN 15 ML UDC PO ONE (21:45)
[2020-09-03] MEDS ORDERED: MAGNESIUM/ALUMINUM/SIMETHICONE 30 ML UDC PO ONE (21:45)
[2020-09-03 21:48] LABS: LYMPHOCYTES % (MANUAL) 10 % (19-48); MONOCYTES % (MANUAL) 16 % (3.4-9.0); NEUTROPHILS % (MANUAL) 74 % (40-74); PLATELET ESTIMATE ADEQUATE; PLATELET MORPHOLOGY COMMENT NORMAL; RBC MORPHOLOGY COMMENT NORMAL
[2020-09-04] MEDS ORDERED: DEXTROSE 50% SYRINGE 50 ML IV PRN (00:45)
[2020-09-04] MEDS ORDERED: SIMETHICONE 80 MG CHEW PO PRN (00:45)
[2020-09-04] MEDS ORDERED: DOCUSATE SODIUM 100 MG CAP PO PRN (00:45)
[2020-09-04] MEDS ORDERED: POLYETHYLENE GLYCOL 3350 17 GM PACK PO PRN (00:45)
[2020-09-04] MEDS ORDERED: DIPHENHYDRAMINE HCL 25 MG CAP PO PRN (00:45)
[2020-09-04] MEDS ORDERED: ACETAMINOPHEN 325 MG TAB PO PRN (00:45)
[2020-09-04] MEDS ORDERED: LIDOCAINE 4% PATCH TP PRN (00:45)
[2020-09-04] MEDS ORDERED: POTASSIUM CHLORIDE 20 MEQ TAB CR PO PRN (00:45)
[2020-09-04] MEDS ORDERED: HYDRALAZINE HCL 20 MG/ML VIAL IV PRN (00:45)
[2020-09-04] MEDS: PIPERACILLIN/TAZOBAC 3.375 GM in SODIUM CHLORIDE 0.9% 50ML 50 ML IV SCH ×3 (05:39→21:15)
[2020-09-04] MEDS: SODIUM CHLORIDE 0.9% 1000ML 1,000 ML IV SCH ×3 (05:39→21:15)
[2020-09-04 05:49] LABS: BASOPHILS % 0.2 % (0.0-1.0); HEMATOCRIT 34.4 % (34.2-44.1); LYMPHOCYTES # (AUTO) 0.8 (1.0-3.2); LYMPHOCYTES % 15.8 % (18.0-39.1); MEAN CORPUSCULAR HEMOGLOBIN 26.9 pg (28-32); MEAN CORPUSCULAR VOLUME 84.1 fL (81-99); MONOCYTES # (AUTO) 1.5 (0.2-0.8); MONOCYTES % 31.5 % (4.4-11.3); NEUTROPHILS # (AUTO) 2.5 (2.1-6.9); NEUTROPHILS % 52.1 % (38.7-80.0); PLATELET COUNT 130 x10e3/uL (140-360); RED BLOOD COUNT 4.09 x10e6/uL (3.6-5.1); RED CELL DISTRIBUTION WIDTH 15.2 % (11.7-14.4)
[2020-09-04 05:57] LABS: ALBUMIN 3.4 g/dL (3.5-5.0); ALBUMIN/GLOBULIN RATIO 1.2 (0.8-2.0); ALKALINE PHOSPHATASE 56 IU/L (40-150); ANION GAP 18.2 mmol/L (8-16); BLOOD UREA NITROGEN 11 mg/dL (7-26); BUN/CREATININE RATIO 18 (6-25); CALCIUM 8.4 mg/dL (8.4-10.2); CARBON DIOXIDE 26 mmol/L (22-29); CHLORIDE 98 mmol/L (98-107); EST GLOMERULAR FILTRATION RATE > 60 ML/MIN (60-); GLUCOSE 93 mg/dL (74-118); POTASSIUM 3.2 mmol/L (3.5-5.1); SODIUM 139 mmol/L (136-145)
[2020-09-04 05:58] LABS: ALANINE AMINOTRANSFERASE < 6 IU/L (0-55)
[2020-09-04] MEDS ORDERED: PHENERGAN SUPP25 MG RC (07:45)
[2020-09-04] MEDS ORDERED: LOSARTAN POTASS25 MG PO (07:45)
[2020-09-04] MEDS ORDERED: METOCLOPRAMIDE10 MG PO (07:45)
[2020-09-04] MEDS ORDERED: Vitamin D2 PO (07:45)
[2020-09-04] MEDS ORDERED: ZOFRAN4 MG PO (07:45)
[2020-09-04] MEDS ORDERED: SPIRONOLACTONE25 MG PO (07:45)
[2020-09-04] MEDS ORDERED: VITAMIN B-121000 MCG PO (07:45)
[2020-09-04] MEDS: PANTOPRAZOLE SOD 40 MG TABEC PO SCH (07:45)
[2020-09-04] MEDS: LAMOTRIGINE 100 MG TAB PO SCH ×2 (08:10→17:36)
[2020-09-04 08:33] LABS: LYMPHOCYTES % (MANUAL) 12 % (19-48); MONOCYTES % (MANUAL) 22 % (3.4-9.0); NEUTROPHILS % (MANUAL) 66 % (40-74)
[2020-09-04] MEDS: ENOXAPARIN SOD INJ 40 MG/0.4 ML SYR SC SCH (17:36)
[2020-09-04] MEDS: SUCRALFATE 1 GM/10 ML SUSP NG SCH ×2 (17:36→21:15)
[2020-09-04] MEDS: METOCLOPRAMIDE HCL 10 MG TAB PO SCH ×2 (17:36→21:15)
[2020-09-04 19:35] VITALS: BP 155/79
[2020-09-04] MEDS ORDERED: PROTONIX20 MG PO (20:10)
[2020-09-04 21:00] VITALS: BP 155/79
[2020-09-04 21:12] VITALS: BP 155/79
[2020-09-04 23:45] VITALS: BP 136/48
[2020-09-05] VITALS (8 sets, daily range): BP systolic 135–165; BP diastolic 47–69
[2020-09-05 05:09] LABS: BASOPHILS % 0.4 % (0.0-1.0); HEMATOCRIT 34.5 % (34.2-44.1); LYMPHOCYTES # (AUTO) 0.9 (1.0-3.2); LYMPHOCYTES % 17.5 % (18.0-39.1); MEAN CORPUSCULAR HEMOGLOBIN 26.8 pg (28-32); MEAN CORPUSCULAR HGB CONC 31.9 g/dL (31-35); MEAN CORPUSCULAR VOLUME 84.1 fL (81-99); MONOCYTES # (AUTO) 1.9 (0.2-0.8); MONOCYTES % 35.5 % (4.4-11.3); NEUTROPHILS # (AUTO) 2.5 (2.1-6.9); PLATELET COUNT 120 x10e3/uL (140-360); RED CELL DISTRIBUTION WIDTH 15.5 % (11.7-14.4)
[2020-09-05] MEDS: PIPERACILLIN/TAZOBAC 3.375 GM in SODIUM CHLORIDE 0.9% 50ML 50 ML IV SCH ×3 (05:20→21:13)
[2020-09-05] MEDS: SODIUM CHLORIDE 0.9% 1000ML 1,000 ML IV SCH (05:20)
[2020-09-05 05:25] LABS: ALBUMIN/GLOBULIN RATIO 1.2 (0.8-2.0); ALKALINE PHOSPHATASE 47 IU/L (40-150); ANION GAP 14.1 mmol/L (8-16); BLOOD UREA NITROGEN 9 mg/dL (7-26); BUN/CREATININE RATIO 15 (6-25); CALCIUM 8.2 mg/dL (8.4-10.2); CARBON DIOXIDE 25 mmol/L (22-29); CHLORIDE 102 mmol/L (98-107); CREATININE, SERUM 0.59 mg/dL (0.57-1.11); EST GLOMERULAR FILTRATION RATE > 60 ML/MIN (60-); GLUCOSE 99 mg/dL (74-118); POTASSIUM 3.1 mmol/L (3.5-5.1); SODIUM 138 mmol/L (136-145)
[2020-09-05 05:32] LABS: ALANINE AMINOTRANSFERASE < 6 IU/L (0-55)
[2020-09-05] MEDS: METOCLOPRAMIDE HCL 10 MG TAB PO SCH ×3 (08:57→21:13)
[2020-09-05] MEDS: PANTOPRAZOLE SOD 40 MG TABEC PO SCH (08:57)
[2020-09-05] MEDS: LAMOTRIGINE 100 MG TAB PO SCH ×2 (08:57→17:21)
[2020-09-05] MEDS: SUCRALFATE 1 GM/10 ML SUSP NG SCH ×4 (08:57→21:13)
[2020-09-05] MEDS: LOSARTAN POTASSIUM 25 MG TAB PO SCH (08:57)
[2020-09-05 09:05] LABS: ANISOCYTOSIS SLIGHT; LYMPHOCYTES % (MANUAL) 20 % (19-48); MONOCYTES % (MANUAL) 29 % (3.4-9.0); NEUTROPHILS % (MANUAL) 47 % (40-74); PLATELET ESTIMATE SLIGHTLY DECREASED; PLATELET MORPHOLOGY COMMENT NORMAL; RBC MORPHOLOGY COMMENT NORMAL
[2020-09-05] MEDS: ENOXAPARIN SOD INJ 40 MG/0.4 ML SYR SC SCH (17:21)
[2020-09-06] VITALS (9 sets, daily range): BP systolic 127–166; BP diastolic 47–56
[2020-09-06] MEDS: SODIUM CHLORIDE 0.9% 1000ML 1,000 ML IV SCH ×4 (01:16→21:22)
[2020-09-06] MEDS: ONDANSETRON HCL INJ 2MG/ML 2ML 2 MG/ML VIAL IV PRN ×3 (01:17→21:23)
[2020-09-06] MEDS: PIPERACILLIN/TAZOBAC 3.375 GM in SODIUM CHLORIDE 0.9% 50ML 50 ML IV SCH ×3 (05:35→21:22)
[2020-09-06 05:56] LABS: ANION GAP 12.8 mmol/L (8-16); BLOOD UREA NITROGEN 7 mg/dL (7-26); BUN/CREATININE RATIO 11 (6-25); CALCIUM 8.2 mg/dL (8.4-10.2); CARBON DIOXIDE 27 mmol/L (22-29); CHLORIDE 101 mmol/L (98-107); CREATININE, SERUM 0.61 mg/dL (0.57-1.11); EST GLOMERULAR FILTRATION RATE > 60 ML/MIN (60-); GLUCOSE 122 mg/dL (74-118); SODIUM 138 mmol/L (136-145)
[2020-09-06 05:58] LABS: POTASSIUM 2.8 mmol/L (3.5-5.1)
[2020-09-06] MEDS ORDERED: POTASSIUM CHLORIDE 20 MEQ TAB CR PO ONE ×3 (06:50→11:30)
[2020-09-06] MEDS: SUCRALFATE 1 GM/10 ML SUSP NG SCH ×4 (07:30→21:22)
[2020-09-06] MEDS: PANTOPRAZOLE SOD 40 MG TABEC PO SCH (11:07)
[2020-09-06] MEDS: METOCLOPRAMIDE HCL 10 MG TAB PO SCH ×3 (11:08→21:22)
[2020-09-06] MEDS: LAMOTRIGINE 100 MG TAB PO SCH ×2 (11:08→17:19)
[2020-09-06] MEDS: LOSARTAN POTASSIUM 25 MG TAB PO SCH (14:12)
[2020-09-06] MEDS: BALSAM PERU/CASTOR OIL 60 GM OINT...G. TP SCH (14:13)
[2020-09-06] MEDS: ENOXAPARIN SOD INJ 40 MG/0.4 ML SYR SC SCH (17:00)
[2020-09-07 00:26] VITALS: BP 159/65
[2020-09-07 04:48] VITALS: BP 128/45
[2020-09-07 05:38] LABS: BASOPHILS % 0.2 % (0.0-1.0); HEMATOCRIT 31.6 % (34.2-44.1); HEMOGLOBIN 10.1 g/dL (12.0-16.0); LYMPHOCYTES # (AUTO) 1.1 (1.0-3.2); MEAN CORPUSCULAR HEMOGLOBIN 27.1 pg (28-32); MEAN CORPUSCULAR VOLUME 84.7 fL (81-99); MONOCYTES # (AUTO) 1.2 (0.2-0.8); MONOCYTES % 26.4 % (4.4-11.3); NEUTROPHILS # (AUTO) 2.3 (2.1-6.9); PLATELET COUNT 128 x10e3/uL (140-360); RED BLOOD COUNT 3.73 x10e6/uL (3.6-5.1); RED CELL DISTRIBUTION WIDTH 15.5 % (11.7-14.4)
[2020-09-07] MEDS: PIPERACILLIN/TAZOBAC 3.375 GM in SODIUM CHLORIDE 0.9% 50ML 50 ML IV SCH ×3 (05:44→21:24)
[2020-09-07 05:54] LABS: ANION GAP 11.9 mmol/L (8-16); BLOOD UREA NITROGEN 10 mg/dL (7-26); BUN/CREATININE RATIO 16 (6-25); CALCIUM 8.4 mg/dL (8.4-10.2); CARBON DIOXIDE 25 mmol/L (22-29); CHLORIDE 104 mmol/L (98-107); CREATININE, SERUM 0.62 mg/dL (0.57-1.11); EST GLOMERULAR FILTRATION RATE > 60 ML/MIN (60-); GLUCOSE 96 mg/dL (74-118); POTASSIUM 3.9 mmol/L (3.5-5.1); SODIUM 137 mmol/L (136-145)
[2020-09-07] MEDS: PANTOPRAZOLE SOD 40 MG TABEC PO SCH (07:30)
[2020-09-07] MEDS: SUCRALFATE 1 GM/10 ML SUSP NG SCH ×4 (07:30→21:23)
[2020-09-07 08:22] VITALS: BP 128/45
[2020-09-07] MEDS: SODIUM CHLORIDE 0.9% 1000ML 1,000 ML IV SCH ×2 (08:45→21:23)
[2020-09-07 08:47] VITALS: BP 147/51
[2020-09-07] MEDS: LOSARTAN POTASSIUM 25 MG TAB PO SCH (09:00)
[2020-09-07] MEDS: METOCLOPRAMIDE HCL 10 MG TAB PO SCH ×3 (09:00→21:23)
[2020-09-07] MEDS: LAMOTRIGINE 100 MG TAB PO SCH ×2 (09:00→16:46)
[2020-09-07 10:20] LABS: LYMPHOCYTES % (MANUAL) 22 % (19-48); MONOCYTES % (MANUAL) 24 % (3.4-9.0); NEUTROPHILS % (MANUAL) 49 % (40-74); RBC MORPHOLOGY COMMENT NORMAL
[2020-09-07 10:21] LABS: PLATELET ESTIMATE SLIGHTLY DECREASED; PLATELET MORPHOLOGY COMMENT NORMAL
[2020-09-07] MEDS: BALSAM PERU/CASTOR OIL 60 GM OINT...G. TP SCH (13:03)
[2020-09-07] MEDS: ENOXAPARIN SOD INJ 40 MG/0.4 ML SYR SC SCH (16:48)
[2020-09-07] MEDS ORDERED: PROPOFOL IV EMULSION 10 MG/ML 20 ML VIAL ONE (17:57)
[2020-09-07] MEDS ORDERED: POVIDONE IODINE 0.05% 0.05 % ML PO ONE (17:57)
[2020-09-07 20:25] VITALS: BP_SYST 163; BP_SYST 174; BP_DIAS 52; BP_DIAS 97
[2020-09-07 21:00] VITALS: BP 163/52
[2020-09-08 00:24] VITALS: BP 146/61
[2020-09-08] MEDS: SODIUM CHLORIDE 0.9% 1000ML 1,000 ML IV SCH ×2 (05:38→14:45)
[2020-09-08] MEDS: PIPERACILLIN/TAZOBAC 3.375 GM in SODIUM CHLORIDE 0.9% 50ML 50 ML IV SCH ×2 (05:38→17:49)
[2020-09-08 05:39] VITALS: BP 158/50
[2020-09-08 07:32] VITALS: BP 158/50
[2020-09-08 08:24] VITALS: BP 140/46
[2020-09-08] MEDS: SUCRALFATE 1 GM/10 ML SUSP NG SCH ×3 (11:30→17:55)
[2020-09-08 11:40] VITALS: BP 146/48
[2020-09-08] MEDS: LOSARTAN POTASSIUM 25 MG TAB PO SCH (12:33)
[2020-09-08] MEDS: LAMOTRIGINE 100 MG TAB PO SCH ×2 (12:33→17:55)
[2020-09-08] MEDS: PANTOPRAZOLE SOD 40 MG TABEC PO SCH (12:33)
[2020-09-08] MEDS: METOCLOPRAMIDE HCL 10 MG TAB PO SCH ×2 (12:34→17:55)
[2020-09-08 16:08] VITALS: BP 163/52
[2020-09-08] MEDS: BALSAM PERU/CASTOR OIL 60 GM OINT...G. TP SCH (17:49)
[2020-09-08] MEDS: ENOXAPARIN SOD INJ 40 MG/0.4 ML SYR SC SCH (17:55)
== END 2020-09-08 18:50 | DRG 392 ==
LOC: ER 19:44 → ERHOLD 21:38 → MED/SURG2 09-04 20:14 → OBSVTOIN 09-05 08:46
PROVIDERS: ADMIT Internal Medicine; ATTEND Internal Medicine
PROC: 0DB78ZX Excision of Stomach, Pylorus, Via Natural or Artificial Opening Endoscopic, Diagnostic (ICD-10-PCS; principal; 2020-09-07 12:00)
DX: K29.70 Gastritis, unspecified, without bleeding (principal); E44.0 Moderate protein-calorie malnutrition; K31.84 Gastroparesis; K29.80 Duodenitis without bleeding; G40.909 Epilepsy, unspecified, not intractable, without status epilepticus; E87.8 Other disorders of electrolyte and fluid balance, not elsewhere classified; I10 Essential (primary) hypertension; N83.209 Unspecified ovarian cyst, unspecified side; Z68.27 Body mass index [BMI] 27.0-27.9, adult; K44.9 Diaphragmatic hernia without obstruction or gangrene; E87.6 Hypokalemia; Z87.820 Personal history of traumatic brain injury; Z20.822 Contact with and (suspected) exposure to COVID-19
CPT/HCPCS: 36415; 43239; 80048; 80053; 82550; 82553; 83690; 84132; 84484; 85025; 88305; 88312; 93005; 93306; 97139; 99251; 99284; G0378; J1650; J2405; J2543; J7030; U0002

== ENCOUNTER 2021-10-20 13:22 | Emergency (ER) | payer MEDICARE, OTHER ==
[~2021-10-20] VITALS: Ht 154.9 cm; Wt 66.2 kg
[~2021-10-20 13:22] MED LIST changes: +LOSARTAN POTASS25 MG PO; +METOCLOPRAMIDE10 MG PO; +PHENERGAN SUPP25 MG RC; +PROTONIX20 MG PO; +SPIRONOLACTONE25 MG PO; +VITAMIN B-121000 MCG PO; +Vitamin D2 PO; +ZOFRAN4 MG PO
[2021-10-20 14:44] LABS: HEMATOCRIT 26.8 % (34.2-44.1); LYMPHOCYTES # (AUTO) 1.4 (1.0-3.2); LYMPHOCYTES % 34.9 % (18.0-39.1); MEAN CORPUSCULAR HEMOGLOBIN 26.7 pg (28-32); MEAN CORPUSCULAR HGB CONC 29.9 g/dL (31-35); MEAN CORPUSCULAR VOLUME 89.3 fL (81-99); MONOCYTES # (AUTO) 0.6 (0.2-0.8); MONOCYTES % 15.3 % (4.4-11.3); NEUTROPHILS # (AUTO) 2.1 (2.1-6.9); NEUTROPHILS % 49.8 % (38.7-80.0); PLATELET COUNT 97 x10e3/uL (140-360); RED CELL DISTRIBUTION WIDTH 16.9 % (11.7-14.4)
[2021-10-20 15:01] LABS: INR 1.06; PROTHROMBIN TIME 14.8 seconds (11.9-14.5)
[2021-10-20 15:08] LABS: ALBUMIN 2.9 g/dL (3.5-5.0); ALBUMIN/GLOBULIN RATIO 0.6 (0.8-2.0); ALKALINE PHOSPHATASE 68 IU/L (40-150); ANION GAP 15.8 mmol/L (8-16); BLOOD UREA NITROGEN 24 mg/dL (7-26); BUN/CREATININE RATIO 21 (6-25); CALCIUM 8.7 mg/dL (8.4-10.2); CARBON DIOXIDE 25 mmol/L (22-29); CHLORIDE 96 mmol/L (98-107); CREATININE, SERUM 1.17 mg/dL (0.57-1.11); GLUCOSE 114 mg/dL (74-118); POTASSIUM 3.8 mmol/L (3.5-5.1); SODIUM 133 mmol/L (136-145)
[2021-10-20 15:10] LABS: ALANINE AMINOTRANSFERASE < 6 IU/L (0-55); CREATINE KINASE < 7 IU/L (29-168)
[2021-10-20 18:02] LABS: LYMPHOCYTES % (MANUAL) 35 % (19-48); MONOCYTES % (MANUAL) 13 % (3.4-9.0); MYELOCYTES % (MANUAL) 2 % (0-0); NEUTROPHILS % (MANUAL) 50 % (40-74)
[2021-10-20 18:04] LABS: HYPOCHROMASIA MARKED; PLATELET MORPHOLOGY COMMENT NORMAL
[2021-10-20 18:05] LABS: PLATELET ESTIMATE MARKEDLY DECREASED
[2021-10-20 18:24] VITALS: BP 110/66
== END 2021-10-20 18:05 ==
LOC: ER 13:38
DX: D64.9 Anemia, unspecified (principal); G40.909 Epilepsy, unspecified, not intractable, without status epilepticus; Z88.6 Allergy status to analgesic agent; Z88.2 Allergy status to sulfonamides; Z20.822 Contact with and (suspected) exposure to COVID-19; Z79.899 Other long term (current) drug therapy; Z87.440 Personal history of urinary (tract) infections; Z86.73 Personal history of transient ischemic attack (TIA), and cerebral infarction without residual deficits; Z85.038 Personal history of other malignant neoplasm of large intestine
CPT/HCPCS: 36415; 71045; 80053; 82140; 82550; 82553; 83880; 84484; 85025; 85610; 85730; 86850; 86900; 99284; U0002

== ENCOUNTER 2021-10-28 01:17 | Inpatient (IN) | payer MEDICARE, OTHER ==
[~2021-10-28] VITALS: Ht 154.9 cm; Wt 66.2 kg
[2021-10-28 02:02] LABS: BASOPHILS % 0.3 % (0.0-1.0); LYMPHOCYTES # (AUTO) 1.5 (1.0-3.2); LYMPHOCYTES % 44.6 % (18.0-39.1); MEAN CORPUSCULAR HGB CONC 30.7 g/dL (31-35); MEAN CORPUSCULAR VOLUME 84.6 fL (81-99); MONOCYTES # (AUTO) 0.6 (0.2-0.8); MONOCYTES % 17.5 % (4.4-11.3); NEUTROPHILS # (AUTO) 1.2 (2.1-6.9); NEUTROPHILS % 34.9 % (38.7-80.0); PLATELET COUNT 109 x10e3/uL (140-360); RED BLOOD COUNT 2.54 x10e6/uL (3.6-5.1); RED CELL DISTRIBUTION WIDTH 17.2 % (11.7-14.4)
[2021-10-28 02:07] LABS: HEMATOCRIT 21.5 % (34.2-44.1); HEMOGLOBIN 6.6 g/dL (12.0-16.0)
[2021-10-28 02:18] LABS: ANION GAP 16.6 mmol/L (8-16); CALCIUM 8.2 mg/dL (8.4-10.2); CREATININE, SERUM 1.23 mg/dL (0.57-1.11); POTASSIUM 3.6 mmol/L (3.5-5.1)
[2021-10-28] MEDS ORDERED: SODIUM CHLORIDE 0.9% 250ML 250 ML IV ONE (02:30)
[2021-10-28] MEDS ORDERED: ONDANSETRON HCL INJ 2MG/ML 2ML 2 MG/ML VIAL IV PRN (02:45)
[2021-10-28] MEDS ORDERED: SODIUM CHLORIDE FLUSH 10 ML SYR INJ PRN (02:45)
[2021-10-28 04:00] VITALS: BP 136/45
[2021-10-28] MEDS ORDERED: SODIUM CHLORIDE 0.9% 250ML 250 ML ONE (06:25)
[2021-10-28 08:02] VITALS: BP 126/53
[2021-10-28 08:25] VITALS: BP 126/53
[2021-10-28] MEDS ORDERED: SENNA LAXATIVE8.6 MG PO (11:21)
[2021-10-28] MEDS ORDERED: ATORVASTATIN CA20 MG PO (11:21)
[2021-10-28] MEDS ORDERED: NEXIUM40 MG PO (11:21)
[2021-10-28] MEDS ORDERED: FEROSUL325 MG PO (11:21)
[2021-10-28] MEDS ORDERED: VITAMIN D250 MCG PO (11:21)
[2021-10-28] MEDS ORDERED: ASPIRIN81 MG PO (11:21)
[2021-10-28] MEDS ORDERED: LACTULOSE20 GM/30 M PO (11:21)
[2021-10-28 12:30] VITALS: BP 131/43
[2021-10-28] MEDS ORDERED: ERGOCALCIFEROL 1.25 MG PO SCH (12:45)
[2021-10-28] MEDS ORDERED: LACTULOSE SYRUP 20 GM/30 ML UDC PO PRN (12:45)
[2021-10-28] MEDS ORDERED: PROMETHAZINE HCL 25 MG SUPP RC PRN (12:45)
[2021-10-28] MEDS ORDERED: ONDANSETRON HCL 4 MG ORAL DISINTEGRATING TAB PO PRN (12:45)
[2021-10-28] MEDS ORDERED: METOCLOPRAMIDE HCL 10 MG TAB PO SCH (15:00)
[2021-10-28 16:30] VITALS: BP 159/64
[2021-10-28 16:36] LABS: HEMATOCRIT 28.3 % (34.2-44.1); HEMOGLOBIN 9.1 g/dL (12.0-16.0); LYMPHOCYTES # (AUTO) 1.1 (1.0-3.2); LYMPHOCYTES % 36.7 % (18.0-39.1); MEAN CORPUSCULAR HEMOGLOBIN 27.2 pg (28-32); MEAN CORPUSCULAR HGB CONC 32.2 g/dL (31-35); MEAN CORPUSCULAR VOLUME 84.5 fL (81-99); MONOCYTES # (AUTO) 0.3 (0.2-0.8); MONOCYTES % 10.7 % (4.4-11.3); NEUTROPHILS # (AUTO) 1.5 (2.1-6.9); NEUTROPHILS % 52.6 % (38.7-80.0); PLATELET COUNT 77 x10e3/uL (140-360); RED BLOOD COUNT 3.35 x10e6/uL (3.6-5.1); RED CELL DISTRIBUTION WIDTH 16.5 % (11.7-14.4)
[2021-10-28 17:03] LABS: LYMPHOCYTES % (MANUAL) 30 % (19-48); MONOCYTES % (MANUAL) 11 % (3.4-9.0); NEUTROPHILS % (MANUAL) 56 % (40-74); PLATELET ESTIMATE SLIGHTLY DECREASED; PLATELET MORPHOLOGY COMMENT NORMAL
[2021-10-28 17:17] LABS: FERRITIN 433.59 ng/mL (4.63-204.00)
[2021-10-28] MEDS: LAMOTRIGINE 100 MG TAB PO SCH (17:36)
[2021-10-28 20:00] VITALS: BP 118/42
[2021-10-28] MEDS: ATORVASTATIN 20 MG TAB PO SCH (20:11)
[2021-10-29] VITALS (9 sets, daily range): BP systolic 122–164; BP diastolic 35–57
[2021-10-29 05:33] LABS: BASOPHILS % 0.3 % (0.0-1.0); HEMATOCRIT 27.7 % (34.2-44.1); LYMPHOCYTES % 31.4 % (18.0-39.1); MEAN CORPUSCULAR HEMOGLOBIN 27.4 pg (28-32); MEAN CORPUSCULAR HGB CONC 32.5 g/dL (31-35); MEAN CORPUSCULAR VOLUME 84.2 fL (81-99); MONOCYTES # (AUTO) 0.5 (0.2-0.8); MONOCYTES % 15.5 % (4.4-11.3); NEUTROPHILS # (AUTO) 1.4 (2.1-6.9); NEUTROPHILS % 45.2 % (38.7-80.0); PLATELET COUNT 81 x10e3/uL (140-360); RED BLOOD COUNT 3.29 x10e6/uL (3.6-5.1); RED CELL DISTRIBUTION WIDTH 16.4 % (11.7-14.4)
[2021-10-29 06:05] LABS: ANION GAP 12.8 mmol/L (8-16); CALCIUM 8.6 mg/dL (8.4-10.2); POTASSIUM 3.8 mmol/L (3.5-5.1)
[2021-10-29 06:53] LABS: LYMPHOCYTES % (MANUAL) 37 % (19-48); MONOCYTES % (MANUAL) 16 % (3.4-9.0); NEUTROPHILS % (MANUAL) 47 % (40-74); PLATELET ESTIMATE MODERATELY DECREASED
[2021-10-29 06:54] LABS: PLATELET MORPHOLOGY COMMENT NORMAL; RBC MORPHOLOGY COMMENT NORMAL
[2021-10-29] MEDS: PANTOPRAZOLE SOD 40 MG TABEC PO SCH (08:35)
[2021-10-29] MEDS: LAMOTRIGINE 100 MG TAB PO SCH ×2 (08:35→17:04)
[2021-10-29] MEDS: FERROUS SULFATE 325 MG TAB PO SCH (08:36)
[2021-10-29] MEDS: SENNOSIDES 8.6 MG TAB PO SCH ×2 (08:36→08:37)
[2021-10-29] MEDS: CYANOCOBALAMIN 1,000 MCG TAB PO SCH (08:36)
[2021-10-29] MEDS: SPIRONOLACTONE 25 MG TAB PO SCH (08:36)
[2021-10-29] MEDS ORDERED: LOSARTAN POTASSIUM 25 MG TAB PO SCH (09:00)
[2021-10-29] MEDS ORDERED: ASPIRIN 81 MG CHEW TAB PO SCH (09:00)
[2021-10-29] MEDS: LOSARTAN POTASSIUM 100 MG TAB PO SCH (14:07)
[2021-10-29] MEDS ORDERED: ACETAMINOPHEN 325 MG TAB PO PRN (16:00)
[2021-10-29] MEDS: ATORVASTATIN 20 MG TAB PO SCH (21:00)
[2021-10-30] VITALS (7 sets, daily range): BP systolic 102–128; BP diastolic 40–66
[2021-10-30 05:11] LABS: BASOPHILS % 0.3 % (0.0-1.0); HEMATOCRIT 24.4 % (34.2-44.1); LYMPHOCYTES # (AUTO) 1.4 (1.0-3.2); LYMPHOCYTES % 35.9 % (18.0-39.1); MEAN CORPUSCULAR HEMOGLOBIN 27.4 pg (28-32); MEAN CORPUSCULAR HGB CONC 32.8 g/dL (31-35); MEAN CORPUSCULAR VOLUME 83.6 fL (81-99); MONOCYTES # (AUTO) 0.9 (0.2-0.8); MONOCYTES % 22.6 % (4.4-11.3); NEUTROPHILS # (AUTO) 1.5 (2.1-6.9); NEUTROPHILS % 39.1 % (38.7-80.0); PLATELET COUNT 82 x10e3/uL (140-360); RED BLOOD COUNT 2.92 x10e6/uL (3.6-5.1); RED CELL DISTRIBUTION WIDTH 16.5 % (11.7-14.4)
[2021-10-30] MEDS: CYANOCOBALAMIN 1,000 MCG TAB PO SCH (07:30)
[2021-10-30] MEDS: LOSARTAN POTASSIUM 100 MG TAB PO SCH (09:00)
[2021-10-30] MEDS: PANTOPRAZOLE SOD 40 MG TABEC PO SCH (09:00)
[2021-10-30] MEDS: SPIRONOLACTONE 25 MG TAB PO SCH (09:00)
[2021-10-30] MEDS: LAMOTRIGINE 100 MG TAB PO SCH ×2 (09:00→16:43)
[2021-10-30] MEDS: FERROUS SULFATE 325 MG TAB PO SCH (09:00)
[2021-10-30] MEDS: SENNOSIDES 8.6 MG TAB PO SCH (09:00)
[2021-10-30] MEDS ORDERED: PROPOFOL IV EMULSION 10 MG/ML 20 ML VIAL ONE (11:04)
[2021-10-30] MEDS ORDERED: LIDOCAINE HCL 2% LOCAL INJ 5 ML SDV VIAL INJ ONE (11:04)
[2021-10-30 12:50] LABS: LYMPHOCYTES % (MANUAL) 36 % (19-48); MONOCYTES % (MANUAL) 15 % (3.4-9.0); NEUTROPHILS % (MANUAL) 46 % (40-74); PLATELET ESTIMATE MODERATELY DECREASED; PLATELET MORPHOLOGY COMMENT NORMAL; RBC MORPHOLOGY COMMENT NORMAL
[2021-10-30 12:51] LABS: ANISOCYTOSIS SLIGHT
[2021-10-30] MEDS ORDERED: ATORVASTATIN 40 MG TAB PO SCH (21:00)
[2021-10-30] MEDS: SUCRALFATE 1 GM TAB PO SCH (22:33)
[2021-10-31] VITALS: BP 123/46
[2021-10-31 04:00] VITALS: BP 138/44
[2021-10-31 08:04] VITALS: BP 124/40
[2021-10-31 09:06] VITALS: BP 124/40
[2021-10-31] MEDS: CYANOCOBALAMIN 1,000 MCG TAB PO SCH (09:23)
[2021-10-31] MEDS: FERROUS SULFATE 325 MG TAB PO SCH (09:23)
[2021-10-31] MEDS: LAMOTRIGINE 100 MG TAB PO SCH ×2 (09:23→17:04)
[2021-10-31] MEDS: SENNOSIDES 8.6 MG TAB PO SCH (09:23)
[2021-10-31] MEDS: PANTOPRAZOLE SOD 40 MG TABEC PO SCH (09:24)
[2021-10-31] MEDS: SPIRONOLACTONE 25 MG TAB PO SCH (09:24)
[2021-10-31] MEDS: SUCRALFATE 1 GM TAB PO SCH ×3 (09:24→17:04)
[2021-10-31] MEDS: LOSARTAN POTASSIUM 100 MG TAB PO SCH (09:24)
[2021-10-31 12:00] VITALS: BP 116/38
[2021-10-31 16:03] VITALS: BP 116/49
[2021-11-02] MEDS ORDERED: ERGOCALCIFEROL 50,000 UNIT CAP PO SCH (09:00)
== END 2021-10-31 17:46 | DRG 378 ==
LOC: ER 01:24 → ERHOLD 02:59 → MED/SURG 03:37 → OBSVTOIN 10-29 10:03
PROC: 05HY33Z Insertion of Infusion Device into Upper Vein, Percutaneous Approach (ICD-10-PCS; 2021-10-28)
PROC: 30243N1 Transfusion of Nonautologous Red Blood Cells into Central Vein, Percutaneous Approach (ICD-10-PCS; 2021-10-28)
PROC: 0DB68ZX Excision of Stomach, Via Natural or Artificial Opening Endoscopic, Diagnostic (ICD-10-PCS; principal; 2021-10-29)
PROC: 0DB68ZZ Excision of Stomach, Via Natural or Artificial Opening Endoscopic (ICD-10-PCS; 2021-10-29)
DX: K29.71 Gastritis, unspecified, with bleeding (principal); I69.354 Hemiplegia and hemiparesis following cerebral infarction affecting left non-dominant side; N39.0 Urinary tract infection, site not specified; I12.9 Hypertensive chronic kidney disease with stage 1 through stage 4 chronic kidney disease, or unspecified chronic kidney disease; N18.30 Chronic kidney disease, stage 3 unspecified; G40.909 Epilepsy, unspecified, not intractable, without status epilepticus; K21.9 Gastro-esophageal reflux disease without esophagitis; E78.00 Pure hypercholesterolemia, unspecified; Z85.038 Personal history of other malignant neoplasm of large intestine; D63.8 Anemia in other chronic diseases classified elsewhere; D69.6 Thrombocytopenia, unspecified; I69.320 Aphasia following cerebral infarction; Z87.440 Personal history of urinary (tract) infections; B96.20 Unspecified Escherichia coli [E. coli] as the cause of diseases classified elsewhere; Z96.642 Presence of left artificial hip joint; E87.6 Hypokalemia; I48.0 Paroxysmal atrial fibrillation; Z79.01 Long term (current) use of anticoagulants; K44.9 Diaphragmatic hernia without obstruction or gangrene; K20.90 Esophagitis, unspecified without bleeding; D50.0 Iron deficiency anemia secondary to blood loss (chronic); Z90.49 Acquired absence of other specified parts of digestive tract
CPT/HCPCS: 0223U; 36415; 43239; 80048; 82270; 82607; 82728; 82746; 83540; 84466; 85025; 86850; 86900; 86920; 87040; 87086; 87186; 88305; 88312; 88342; 97139; 99251; 99284; G0378; J2001; J7050; P9016